=== PATIENT | female | born 1945 | race Caucasian/White ===

== ENCOUNTER 2018-04-02 13:06 | Emergency (ER) | payer OTHER ==
[2018-04-02] MEDS ORDERED: BUPIVACAINE 0.5% PF 10 ML VIAL ONE (14:14)
[2018-04-02] MEDS ORDERED: LIDOCAINE 1% MPF 30 ML VIAL ONE (14:14)
[2018-04-02] MEDS ORDERED: LIDOCAINE 1% W/EPI 1:100,000 MDV 50 ML VIAL ONE (15:05)
--- NOTE | 2018-04-02 15:42 | EDPHYS ---
Physician Documentation [facility] Name: Meena Gandhi Age: 73 yrs Sex: Female : 1945 Arrival Date: 04/02/2018 Time: 13:07 Bed 14 Private MD: ED Physician Vignesh Waterman HPI: 04/02 13:32 This 73 yrs old Female presents to ER via Ambulatory with complaints of cp Rectal Abscess. 13:32 The patient presents to the emergency department with pain in the rectal area, that is cp moderate. Onset: The symptoms/episode began/occurred 2 day(s) ago. 13:32 Associate signs and symptoms: Pertinent negatives: abdominal pain, diarrhea, dysuria, cp fever, lower GI bleeding. 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 - Social history:: Smoking status: Patient/guardian denies using tobacco. - Ebola Screening: : No symptoms or risks identified at this time. ROS: 13:35 Constitutional: Negative for body aches, chills, fever, poor PO intake. cp 13:35 Eyes: Negative for injury, pain, redness, and discharge. cp 13:35 Cardiovascular: Negative for chest pain. 13:35 Respiratory: Negative for cough, shortness of breath, wheezing. 13:35 Abdomen/GI: Positive for rectal pain, Negative for abdominal pain, vomiting, diarrhea, black/tarry stool, rectal bleeding, bowel incontinence. 13:35 : Negative for urinary symptoms. 13:35 All other systems are negative. Exam: 13:42 Constitutional: The patient appears in no acute distress, alert, awake, well developed, cp well nourished, uncomfortable. 13:42 Head/Face: Normocephalic, atraumatic. cp 13:42 Eyes: Periorbital structures: appear normal, Conjunctiva: normal, no exudate, no injection, Sclera: no appreciated abnormality, Lids and lashes: appear normal, bilaterally. 13:42 ENT: External ear(s): are unremarkable, Nose: is normal, Mouth: Lips: moist, Oral mucosa: moist, Posterior pharynx: is normal, airway is patent. 13:42 Chest/axilla: Inspection: normal. 13:42 Cardiovascular: Rate: bradycardic, Rhythm: regular. 13:42 Respiratory: the patient does not display signs of respiratory distress, Respirations: normal, no use of accessory muscles, no retractions, no splinting, no tachypnea. 13:42 Abdomen/GI: Inspection: abdomen appears normal, Palpation: abdomen is soft and non-tender, in all quadrants, rebound tenderness, is not appreciated, voluntary guarding, is not appreciated, involuntary guarding, is not appreciated. 13:42 Back: pain, is absent, ROM is normal. 13:42 : Rectal exam: hemorrhoid(s), external, painful, thrombosed. 13:42 Skin: abscess, not appreciated, cellulitis, is not appreciated, no rash present. Vital Signs: 13:23 BP 157 / 60; Pulse 57; Resp 16; Temp 97.2; Pulse Ox 100% on R/A; Weight 63.05 kg; hb Height 5 ft. 2 in. (157.48 cm); Pain 10/10; 15:33 BP 154 / 62; Pulse 60; Resp 18; Pulse Ox 100% on R/A; hj 13:23 Body Mass Index 25.42 (63.05 kg, 157.48 cm) hb Procedures: 15:29 I \T\ D: Incision and drainage was performed for an abscess of the external hemorrhoid cp Prepped with Betadine, Anesthetized with 3 ccs of 50/50 mixture 1% lidocaine with epi and 0.5% marcaine. Incised with #11 blade. Drained multiple small clots. MDM: 13:32 Patient medically screened. cp 14:15 Differential diagnosis: hemorrhoids, fissure, abscess, pilonidal cyst. cp 15:40 Data reviewed: vital signs, nurses notes, and as a result, I will discharge patient. cp 15:40 Counseling: I had a detailed discussion with the patient and/or guardian regarding: the cp historical points, exam findings, and any diagnostic results supporting the discharge/admit diagnosis, to return to the emergency department if symptoms worsen or persist or if there are any questions or concerns that arise at home. Response to treatment: the patient's symptoms have markedly improved after treatment, and as a result, I will discharge patient. 04/02 14:06 Order name: I\T\D Setup; Complete Time: 15:11 cp Administered Medications: 15:11 Drug: Lidocaine-Epinephrine -1%: (1:100,000) 5 ml Volume: 20 ml; Route: Infiltration; hj 15:11 Drug: Marcaine (0.5 %) 5 ml Volume: 10 ml; Route: Infiltration; hj Disposition: 04/02/18 15:42 Discharged to Home. Impression: Hemorrhoids and perianal venous thrombosis. - Condition is Stable. - Discharge Instructions: Hemorrhoids, How to Take a Sitz Bath. - Prescriptions for Colace 100 mg Oral Tablet - take 1 tablet by ORAL route every 12 hours; 14 tablet. Tylenol- Codeine #3 300-30 mg Oral Tablet - take 2 tablets by ORAL route every 6 hours As needed; 15 tablet. - Medication Reconciliation Form, Thank You Letter, Antibiotic Education, Prescription Opioid Use form. - Follow up: Bo King MD; When: 2 - 3 days; Reason: Recheck today's complaints. - Problem is new. - Symptoms have improved. Addendum: 04/06/2018 16:48 Co-signature as Attending Physician, Vignesh Waterman MD. g s Signatures: Bo Love RN RN hj Page, Corey, PA PA cp Kristina Haas RN RN hb Starr, Gregory, MD MD Corrections: (The following items were deleted from the chart) 04/02 15:58 15:42 04/02/2018 15:42 Discharged to Home. Impression: Hemorrhoids and perianal venous hj thrombosis. Condition is Stable. Forms are Medication Reconciliation Form, Thank You Letter, Antibiotic Education, Prescription Opioid Use. Follow up: Bo King; When: 2 - 3 days; Reason: Recheck today's complaints. Problem is new. Symptoms have improved. cp
--- NOTE | 2018-04-02 15:42 | ER ---
Nurse's Notes [facility] Name: Meena Gandhi Age: 73 yrs Sex: Female : 1945 Arrival Date: 04/02/2018 Time: 13:07 Bed 14 Private MD: Diagnosis: Hemorrhoids and perianal venous thrombosis Presentation: 04/02 13:22 Presenting complaint: Rectal abscess x 2 days. Transition of care: patient was not hb received from another setting of care. Onset of symptoms was March 31, 2018. Risk Assessment: Do you want to hurt yourself or someone else? Patient reports no desire to harm self or others. Care prior to arrival: None. 13:22 Method Of Arrival: Ambulatory hb 13:22 Acuity: MIGUELITO 4 hj 13:33 Initial Sepsis Screen: Does the patient meet any 2 criteria? No. Patient's initial hj sepsis screen is negative. Does the patient have a suspected source of infection? No. Patient's initial sepsis screen is negative. Triage Assessment: 13:33 General: Appears in no apparent distress. uncomfortable, Behavior is calm, cooperative, hj appropriate for age. Pain: Complains of pain in rectum. 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 - Social history:: Smoking status: Patient/guardian denies using tobacco. - Ebola Screening: : No symptoms or risks identified at this time. Screenin:32 Abuse screen: Denies threats or abuse. Denies injuries from another. Nutritional hj screening: No deficits noted. Tuberculosis screening: No symptoms or risk factors identified. Fall Risk None identified. Assessment: 13:30 Reassessment: see triage for assessment;. hj 14:15 Reassessment: Patient and/or family updated on plan of care and expected duration. Pain hj level reassessed. Patient is alert, oriented x 3, equal unlabored respirations, skin warm/dry/pink. I\T\D kit in room;. 15:33 Reassessment: Patient and/or family updated on plan of care and expected duration. Pain hj level reassessed. Patient is alert, oriented x 3, equal unlabored respirations, skin warm/dry/pink. provider in room for I\T\D with medical instrument technician Marianna;. Vital Signs: 13:23 BP 157 / 60; Pulse 57; Resp 16; Temp 97.2; Pulse Ox 100% on R/A; Weight 63.05 kg; hb Height 5 ft. 2 in. (157.48 cm); Pain 10/10; 15:33 BP 154 / 62; Pulse 60; Resp 18; Pulse Ox 100% on R/A; hj 13:23 Body Mass Index 25.42 (63.05 kg, 157.48 cm) hb ED Course: 13:07 Patient arrived in ED. rg4 13:23 Triage completed. hb 13:23 Arm band placed on right wrist. hb 13:25 Steven Garcia PA is PHCP. cp 13:25 Vignesh Waterman MD is Attending Physician. cp 13:30 Served as a machine setter during rectal exam. [facility] 13:32 Bo Love RN is Primary Nurse. hj 13:33 Patient has correct armband on for positive identification. Bed in low position. Call hj light in reach. Side rails up X 1. 14:07 Served as a machine setter during rectal exam. [facility] 15:30 Assist provider with I \T\ D: Set up I\T\D tray. Patient tolerated well. CLEANED WOUND 5 PATIENT TOLERATED IT WELL. Wound care: Patient tolerated well. 15:37 Bo King MD is Referral Physician. 15:58 Patient did not have IV access during this emergency room visit. hj Administered Medications: 15:11 Drug: Lidocaine-Epinephrine -1%: (1:100,000) 5 ml Volume: 20 ml; Route: Infiltration; hj 15:11 Drug: Marcaine (0.5 %) 5 ml Volume: 10 ml; Route: Infiltration; Outcome: 15:42 Discharge ordered by . cp 15:57 Discharged to home ambulatory. 15:57 Condition: stable 15:57 Discharge instructions given to patient, Instructed on discharge instructions, follow up and referral plans. medication usage, wound care, Demonstrated understanding of instructions, follow-up care, medications, wound care, Prescriptions given X 2. 15:58 Patient left the ED. hj Signatures: Bo Love RN RN hj Page, Corey, PA PA cp Baxter, Kristina, JOELLE RN Chasity Luong 4 Natividad King 5 Corrections: (The following items were deleted from the chart) 13:33 13:22 Acuity: MIGUELITO 3 hb hj
[2018-04-02 16:38] VITALS: TEMP 97.2; O2SAT 100
[2018-04-02 16:39] VITALS: BP 154/62
== END 2018-04-02 15:58 | disposition home or self-care (01) ==
LOC: ER 13:06
DX: K64.5 Perianal venous thrombosis (principal); K64.9 Unspecified hemorrhoids; I10 Essential (primary) hypertension; Z88.2 Allergy status to sulfonamides; Z95.1 Presence of aortocoronary bypass graft
CPT/HCPCS: 99284

== ENCOUNTER 2019-01-26 14:35 | Emergency (ER) | payer OTHER ==
--- NOTE | 2019-01-26 15:20 | RAD REPORT ---
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 Sof t tissue swelling is seen affecting the second finger. Small laceration is present in the region. No fracture or foreign body appreciated.
[2019-01-26] MEDS ORDERED: LIDOCAINE 1% MPF 5 ML VIAL ONE (15:21)
--- NOTE | 2019-01-26 15:35 | ER ---
Nurse's Notes [facility] Name: Meena Gandhi Age: 73 yrs Sex: Female : 1945 Arrival Date: 01/26/2019 Time: 14:37 Bed 25 Private MD: Diagnosis: Laceration without foreign body of right index finger without damage to nail Presentation: 01/26 14:48 Presenting complaint: Patient states: I got my right index finger in the car door. la1 Small laceration noted to finger. Transition of care: patient was not received from another setting of care. Onset of symptoms was January 26, 2019. Risk Assessment: Do you want to hurt yourself or someone else? Patient reports no desire to harm self or others. Initial Sepsis Screen: Does the patient meet any 2 criteria? No. Patient's initial sepsis screen is negative. Does the patient have a suspected source of infection? No. Patient's initial sepsis screen is negative. Care prior to arrival: None. 14:48 Method Of Arrival: Ambulatory la1 14:48 Acuity: MIGUELITO 4 la1 Triage Assessment: 15:00 General: Appears in no apparent distress. comfortable, Behavior is calm, cooperative, ca1 appropriate for age. Injury Description: Abrasion sustained to palmar aspect of middle phalanx of right index finger is dirty, was sustained less than 30 minutes ago. Historical: - Allergies: 14:46 Sulfa (Sulfonamide Antibiotics); la1 - PMHx: 14:46 Hypertension; Diabetes - NIDDM; la1 - Immunization history:: Adult Immunizations up to date. - Social history:: Smoking status: Patient/guardian denies using tobacco. - Ebola Screening: : No symptoms or risks identified at this time. Screenin:57 Abuse screen: Denies threats or abuse. Denies injuries from another. Nutritional ca1 screening: No deficits noted. Tuberculosis screening: No symptoms or risk factors identified. Fall Risk None identified. Assessment: 14:57 General: Appears in no apparent distress. comfortable, Behavior is calm, cooperative, ca1 appropriate for age. Pain: Complains of pain in right hand Pain does not radiate. Pain currently is 7 out of 10 on a pain scale. Quality of pain is described as throbbing, Pain began 30 min ago. Neuro: Level of Consciousness is awake, alert, obeys commands, Oriented to person, place, time, situation. Cardiovascular: Heart tones S1 S2 present Capillary refill < 3 seconds Patient's skin is warm and dry. Respiratory: Airway is patent Respiratory effort is even, unlabored, Respiratory pattern is regular, symmetrical, Breath sounds are clear bilaterally. Derm: Skin is healthy with good turgor, Skin is pink, warm \T\ dry. Musculoskeletal: Circulation, motion, and sensation intact. Capillary refill < 3 seconds, Range of motion: intact in all extremities. 15:46 Reassessment: Patient appears in no apparent distress at this time. Patient is alert, ca1 oriented x 3, equal unlabored respirations, skin warm/dry/pink. Vital Signs: 14:47 BP 165 / 89; Pulse 55; Resp 16; Temp 98.4; Pulse Ox 98% on R/A; Weight 60.78 kg; Height la1 5 ft. 1 in. (154.94 cm); 15:46 BP 144 / 79; Pulse 61; Resp 17; Pulse Ox 99% on R/A; ca1 14:47 Body Mass Index 25.32 (60.78 kg, 154.94 cm) la1 ED Course: 14:37 Patient arrived in ED. mr 14:47 Arm band placed on right wrist. la1 14:48 Triage completed. la1 14:49 Kristin Contreras FNP-C is [facility]. kb 14:49 Vignesh Waterman MD is Attending Physician. kb 14:51 Ashley Alford RN is Primary Nurse. ca1 14:57 Patient has correct armband on for positive identification. Bed in low position. Call ca1 light in reach. Side rails up X 1. Pulse ox on. NIBP on. 14:57 Patient did not have IV access during this emergency room visit. ca1 15:03 Wound care: to laceration located on palmar aspect of distal phalanx of right index jp3 finger was cleaned with Hibiclens, debrided using Betadine scrub, irrigated with normal saline, Patient tolerated well. 15:08 Hand Right 3 View XRAY In Process Unspecified. EDMS 15:30 Assist provider with laceration repair on palmar aspect of distal phalanx of right ca1 index finger that was 2.5 cm. or less using sutures. Set up tray. Performed by Kristin IRWIN Dressed with 4X4s, Patient tolerated well. 15:40 Aluminum finger splint applied to palmar aspect of distal phalanx of right index finger jp3 and palmar aspect of middle phalanx of right index finger. Patient maintains SpO2 saturation greater than 95% on room air. Administered Medications: No medications were administered Outcome: 15:34 Discharge ordered by . kahlil 15:49 Discharged to home ambulatory, with family. ca1 15:49 Condition: stable 15:49 Discharge instructions given to patient, Instructed on discharge instructions, follow up and referral plans. wound care, Demonstrated understanding of instructions, follow-up care, wound care. 15:49 Patient left the ED. ca1 Signatures: Dispatcher [employer] EDMS Kristin Contreras, MEATCUTTER-C MEATCUTTER-Sravanthi King Lee, RN RN la1 Alejandro Sawant jp3 Ashley Alford RN RN ca1
--- NOTE | 2019-01-26 15:35 | EDPHYS ---
Physician Documentation [facility] Name: Meena Gandhi Age: 73 yrs Sex: Female : 1945 Arrival Date: 01/26/2019 Time: 14:37 Bed 25 Private MD: ED Physician Vignesh Waterman HPI: 01/26 15:31 This 73 yrs old Female presents to ER via Ambulatory with complaints of kb Finger Injury. 15:33 The patient has a laceration related to: closed finger in door. The laceration(s) kb is(are) located on the palmar aspect of distal phalanx of right index finger. Onset: The symptoms/episode began/occurred 1 hour(s) ago. Associated signs and symptoms: The patient has no apparent associated signs or symptoms. The patient has not experienced similar symptoms in the past. The patient has not recently seen a physician. Historical: - Allergies: 14:46 Sulfa (Sulfonamide Antibiotics); la1 - PMHx: 14:46 Hypertension; Diabetes - NIDDM; la1 - Immunization history:: Adult Immunizations up to date. - Social history:: Smoking status: Patient/guardian denies using tobacco. - Ebola Screening: : No symptoms or risks identified at this time. ROS: 15:29 Constitutional: Negative for fever, chills, and weight loss, Cardiovascular: Negative kb for chest pain, palpitations, and edema, Respiratory: Negative for shortness of breath, cough, wheezing, and pleuritic chest pain, Abdomen/GI: Negative for abdominal pain, nausea, vomiting, diarrhea, and constipation, MS/Extremity: Negative for injury and deformity, Neuro: Negative for headache, weakness, numbness, tingling, and seizure. 15:29 Skin: Positive for laceration(s), of the palmar aspect of distal phalanx of right index finger. Exam: 15:29 Constitutional: This is a well developed, well nourished patient who is awake, alert, kb and in no acute distress. Head/Face: Normocephalic, atraumatic. Chest/axilla: Normal chest wall appearance and motion. Nontender with no deformity. No lesions are appreciated. Cardiovascular: Regular rate and rhythm with a normal S1 and S2. No gallops, murmurs, or rubs. Normal PMI, no JVD. No pulse deficits. Respiratory: Lungs have equal breath sounds bilaterally, clear to auscultation and percussion. No rales, rhonchi or wheezes noted. No increased work of breathing, no retractions or nasal flaring. Abdomen/GI: Soft, non-tender, with normal bowel sounds. No distension or tympany. No guarding or rebound. No evidence of tenderness throughout. MS/ Extremity: Pulses equal, no cyanosis. Neurovascular intact. Full, normal range of motion. Neuro: Awake and alert, GCS 15, oriented to person, place, time, and situation. Cranial nerves II-XII grossly intact. Motor strength 5/5 in all extremities. Sensory grossly intact. Cerebellar exam normal. Normal gait. 15:29 Skin: injury, laceration(s), the wound is approximately 2 cm(s), of the palmar aspect of distal phalanx of right index finger, that can be described as clean, no foreign body, linear, without bleeding. Vital Signs: 14:47 BP 165 / 89; Pulse 55; Resp 16; Temp 98.4; Pulse Ox 98% on R/A; Weight 60.78 kg; Height la1 5 ft. 1 in. (154.94 cm); 15:46 BP 144 / 79; Pulse 61; Resp 17; Pulse Ox 99% on R/A; ca1 14:47 Body Mass Index 25.32 (60.78 kg, 154.94 cm) la1 Laceration: 15:29 Wound Repair of 2cm ( 0.8in ) subcutaneous laceration to palmar aspect of distal kb phalanx of right index finger. Linear shaped.. Distal neuro/vascular/tendon intact. Anesthesia: Wound infiltrated with 1 mls of 1% lidocaine. Wound prep: Extensive cleansing with hibiclenz by organic preparation technician, Wound irrigation with saline by organic preparation technician. Skin closed with 3 4-0 Prolene using interrupted sutures and sterile technique. Dressed with Neosporin. Patient tolerated well. MDM: 14:49 Patient medically screened. kb 15:29 Data reviewed: vital signs, nurses notes. Data interpreted: Pulse oximetry: on room air kb is 98 %. Interpretation: normal. Counseling: I had a detailed discussion with the patient and/or guardian regarding: the historical points, exam findings, and any diagnostic results supporting the discharge/admit diagnosis, radiology results, the need for outpatient follow up, a family practitioner, to return to the emergency department if symptoms worsen or persist or if there are any questions or concerns that arise at home. 01/26 14:52 Order name: Hand Right 3 View XRAY; Complete Time: 15:31 kb 01/26 14:52 Order name: Wound Care: clean wound; Complete Time: 14:56 kb Administered Medications: No medications were administered Disposition: 01/26/19 15:34 Discharged to Home. Impression: Laceration without foreign body of right index finger without damage to nail. - Condition is Stable. - Discharge Instructions: Laceration Care, Adult, [id number]. - Medication Reconciliation Form, Thank You Letter, Antibiotic Education, Prescription Opioid Use form. - Follow up: Emergency Department; When: As needed; Reason: Worsening of condition. Follow up: Private Physician; When: 2 - 3 days; Reason: Recheck today's complaints, Continuance of care, Re-evaluation by your physician. - Notes: Have sutures removed in 10 days Keep clean and dry Signatures: Dispatcher [employer] EDMS Kristin Contreras, FINANCIAL ADMINISTRATIVE ASSISTANT-C FINANCIAL ADMINISTRATIVE ASSISTANT-Ckb Ken Swain RN RN la1 Ashley Alford RN RN ca1 Corrections: (The following items were deleted from the chart) 15:49 15:34 01/26/2019 15:34 Discharged to Home. Impression: Laceration without foreign body ca1 of right index finger without damage to nail. Condition is Stable. Forms are Medication Reconciliation Form, Thank You Letter, Antibiotic Education, Prescription Opioid Use. Follow up: Emergency Department; When: As needed; Reason: Worsening of condition. Follow up: Private Physician; When: 2 - 3 days; Reason: Recheck today's complaints, Continuance of care, Re-evaluation by your physician. kb
[2019-01-26 16:00] VITALS: TEMP 98.4
[2019-01-26 16:01] VITALS: BP 144/79; O2SAT 99
== END 2019-01-26 15:49 | disposition home or self-care (01) ==
LOC: ER 14:35
PROC: 0JQJ0ZZ Repair Right Hand Subcutaneous Tissue and Fascia, Open Approach (ICD-10-PCS; principal; 2019-01-26)
DX: S61.210A Laceration without foreign body of right index finger without damage to nail, initial encounter (principal); I10 Essential (primary) hypertension; E11.9 Type 2 diabetes mellitus without complications; Z88.2 Allergy status to sulfonamides
CPT/HCPCS: 99284

== ENCOUNTER 2020-03-07 17:40 | Emergency (ER) | payer OTHER, SELFPAY ==
[2020-03-07] MEDS ORDERED: NA CHLORIDE 0.9% 1,000 ML ONE (19:48)
[2020-03-07] MEDS ORDERED: FAMOTIDINE 20 MG/2 ML VIAL IV ONE (19:48)
[2020-03-07 19:54] LABS: Basophils % 0.8 % (0-1.3); Hematocrit 32.3 % (36.0-45.0); Lymphocytes % 14.3 % (15.3-44.8); MPV 8.5 fL (7.6-11.3); RBC Red Blood Cell Count 3.66 M/uL (3.86-4.86)
[2020-03-07 20:07] LABS: Albumin 3.1 g/dL (3.4-5.0); Bilirubin Direct 0.1 mg/dL (0-0.2); Bilirubin Total 0.3 mg/dL (0.2-1.0); Magnesium 2.3 mg/dL (1.8-2.4); Potassium 3.3 mmol/L (3.5-5.1); Protein, Total 7.4 g/dL (6.4-8.2)
[2020-03-07 23:09] LABS: Urine Blood 2+ (NEG); Urine Glucose NEGATIVE (NEG); Urine Protein 1+ (NEG); Urine Specific Gravity 1.015 (1.005-1.030)
--- NOTE | 2020-03-08 00:03 | ER ---
Nurse's Notes [facility] Name: Meena Gandhi Age: 75 yrs Sex: Female : 1945 Arrival Date: 03/07/2020 Time: 17:49 Bed 6 Private MD: Diagnosis: Abdominal Pain;Cervical Mass;Urinary tract infection, site not specified Presentation: 03/07 17:54 Chief complaint: Patient states: has lost about 50 pounds in the last 2-3 months, she sv thinks its d/t stress. Burning w/ urination, painful urination x several months. "I also have 5 growths in my thyroid. And I have lost more hair. I'm also anemic. This heat has also been getting to me.". Risk Assessment: Do you want to hurt yourself or someone else? Patient reports no desire to harm self or others. Onset of symptoms was 2019. 17:54 Method Of Arrival: Ambulatory sv 17:54 Acuity: MIGUELITO 3 sv 17:58 Coronavirus screen: Client denies travel out of the [place] in the last 14 days. At this sv time, the client does not indicate any symptoms associated with coronavirus-19. Ebola Screen: No symptoms or risks identified at this time. Initial Sepsis Screen: Does the patient meet any 2 criteria? No. Patient's initial sepsis screen is negative. Does the patient have a suspected source of infection? No. Patient's initial sepsis screen is negative. Historical: - Allergies: 17:57 Sulfa (Sulfonamide Antibiotics); sv - PMHx: 17:57 Diabetes - NIDDM; Hypertension; sv - Immunization history:: Adult Immunizations up to date. - Social history:: Smoking status: Patient denies any tobacco usage or history of. Screenin:45 Abuse screen: Denies threats or abuse. Nutritional screening: No deficits noted. mt2 Tuberculosis screening: No symptoms or risk factors identified. Fall Risk None identified. Assessment: 19:44 Reassessment: Patient and/or family updated on plan of care and expected duration. Pain mt2 level reassessed. Patient is alert, oriented x 3, equal unlabored respirations, skin warm/dry/pink. General: Appears in no apparent distress. Behavior is cooperative. Pain: Denies pain. 19:45 Neuro: No deficits noted. Cardiovascular: No deficits noted. Respiratory: No deficits mt2 noted. GI: Reports lower abdominal pain, nausea. : No deficits noted. EENT: No deficits noted. Derm: No deficits noted. Musculoskeletal: No deficits noted. 20:30 Reassessment: Patient and/or family updated on plan of care and expected duration. Pain mt2 level reassessed. Patient is alert, oriented x 3, equal unlabored respirations, skin warm/dry/pink. General: Appears uncomfortable, Behavior is agitated. Pain: Denies pain. 22:00 Reassessment: Patient and/or family updated on plan of care and expected duration. Pain mt2 level reassessed. Patient is alert, oriented x 3, equal unlabored respirations, skin warm/dry/pink. General: Appears distressed, uncomfortable, Behavior is anxious. Pain: Complains of pain in chest Pain currently is 10 out of 10 on a pain scale. Cardiovascular: Reports chest pain. 22:00 Reassessment: PATIENT RETURN FROM CT AND C/O CP. MD NOTIFIED. mt2 23:08 Reassessment: Patient and/or family updated on plan of care and expected duration. Pain mt2 level reassessed. Patient is alert, oriented x 3, equal unlabored respirations, skin warm/dry/pink. Patient denies pain at this time. General: Appears comfortable, Behavior is cooperative. Pain: Denies pain. Vital Signs: 17:58 BP 120 / 61; Pulse 89; Resp 16; Temp 98.5(O); Pulse Ox 98% ; Weight 51.26 kg; Height 5 sv ft. 2 in. (157.48 cm); 20:00 BP 143 / 79; Pulse 77; Resp 16; Pulse Ox 95% ; Pain 5/10; mt2 21:00 BP 152 / 79; Pulse 81; Resp 16; Pulse Ox 95% ; Pain 0/10; mt2 22:00 BP 227 / 110; Pulse 80; Resp 22; Pulse Ox 96% ; Pain 10/10; mt2 23:09 BP 170 / 81; Pulse 71; Resp 16; Pulse Ox 96% ; Pain 0/10; mt2 23:20 BP 133 / 56; Pulse 73; Resp 16; Pulse Ox 96% ; Pain 0/10; mt2 17:58 Body Mass Index 20.67 (51.26 kg, 157.48 cm) sv ED Course: 17:49 Patient arrived in ED. mr 17:54 Arm band placed on. 17:57 Triage completed. 18:17 Luz Maria Jeffers, RN is Primary Nurse. ll1 19:04 Jag Dorsey MD is Attending Physician. [facility] 19:35 Inserted saline lock: 22 gauge in right forearm, using aseptic technique. Blood ds4 collected. 19:45 Patient has correct armband on for positive identification. Bed in low position. Call mt2 light in reach. Side rails up X 1. 22:05 CT Abd/Pelvis - IV Contrast Only In Process Unspecified. EDMS 03/08 00:02 Michelle Frazier MD is Referral Physician. [facility] Administered Medications: 03/07 19:44 Drug: NS 0.9% 1000 ml Route: IV; Rate: 1000 ml; Site: right forearm; mt2 20:30 Follow up: Response: No adverse reaction; IV Status: Completed infusion mt2 19:44 Drug: Pepcid 20 mg Route: IVP; Site: right forearm; mt2 20:30 Follow up: Response: No adverse reaction; Pain is decreased mt2 Outcome: 03/08 00:03 Discharge ordered by . [facility] 00:45 Patient left the ED. mt2 Signatures: Dispatcher [employer] EDKY Juanita Zhang RN RN Sravanthi Solis Donovan ds4 Luz Maria Jeffers, JOELLE RN ll1 Jag Dorsey MD MD 7 Cathryn García RN RN mt2 Corrections: (The following items were deleted from the chart) 03/07 18:00 17:54 Chief complaint: Patient states: has lost about 50 pounds in the last 2-3 months, sv she thinks its d/t stress. Burning w/ urination, painful urination x several months. "I also have 5 growths in my thyroid. And I have lost more hair. I'm also anemic." 18:01 17:58 Pulse 89bpm; Resp 16bpm; Pulse Ox 98%; Temp 98.5F Oral; 51.26 kg; Height 5 ft. 2 sv in.; BMI: 20.6; sv 23:08 23:05 Reassessment: Patient and/or family updated on plan of care and expected mt2 duration. Pain level reassessed. Patient is alert, oriented x 3, equal unlabored respirations, skin warm/dry/pink. mt2 23: 23:05 General: Appears distressed, uncomfortable, Behavior is anxious, mt2 mt2 23: 23:05 Pain: Complains of pain in chest Pain currently is 10 out of 10 on a pain scale. mt2 mt2 23:08 23:05 Cardiovascular: Reports chest pain, mt2 mt2
--- NOTE | 2020-03-08 00:03 | EDPHYS ---
Physician Documentation [facility] Name: Meena Gandhi Age: 75 yrs Sex: Female : 1945 Arrival Date: 03/07/2020 Time: 17:49 Bed 6 Private MD: ED Physician Jag Dorsey HPI: 03/07 19:39 This 75 yrs old Female presents to ER via Ambulatory with complaints of mh7 Dehydration. 19:39 Dehydration over the past 2 weeks. Onset: The symptoms/episode began/occurred 2 week(s) mh7 ago. Severity of symptoms: At their worst the symptoms were moderate 5 day(s) ago, in the emergency department the symptoms have improved moderately. The patient has been recently seen by a physician: the patient's primary care provider. Patient states that she has had generalized fatigue and weight loss over the past 3 months. She reports feeling dehydrated over the past 2 weeks due to decreased appetite. She has had some intermittent upper abdominal pain over the past week. She has had intermittent dysuria for the past 2-3 weeks. She denies any headache, chest pain, fever, nausea, vomiting, diarrhea, dizziness, cough, SOB, numbness/tingling, or focal weakness.. Historical: - Allergies: 17:57 Sulfa (Sulfonamide Antibiotics); sv - PMHx: 17:57 Diabetes - NIDDM; Hypertension; sv - Immunization history:: Adult Immunizations up to date. - Social history:: Smoking status: Patient denies any tobacco usage or history of. ROS: 19:39 Eyes: Negative for injury, pain, redness, and discharge, ENT: Negative for injury, mh7 pain, and discharge, Neck: Negative for injury, pain, and swelling, Cardiovascular: Negative for chest pain, palpitations, and edema, Respiratory: Negative for shortness of breath, cough, wheezing, and pleuritic chest pain, Back: Negative for injury and pain, MS/Extremity: Negative for injury and deformity, Skin: Negative for injury, rash, and discoloration, Psych: Negative for depression, anxiety, suicide ideation, homicidal ideation, and hallucinations, Allergy/Immunology: Negative for hives, rash, and allergies, Hematologic/Lymphatic: Negative for swollen nodes, abnormal bleeding, and unusual bruising. Exam: 19:39 Head/Face: Normocephalic, atraumatic. Eyes: Pupils equal round and reactive to light, mh7 extra-ocular motions intact. Lids and lashes normal. Conjunctiva and sclera are non-icteric and not injected. Cornea within normal limits. Periorbital areas with no swelling, redness, or edema. ENT: Nares patent. No nasal discharge, no septal abnormalities noted. Tympanic membranes are normal and external auditory canals are clear. Oropharynx with no redness, swelling, or masses, exudates, or evidence of obstruction, uvula midline. Mucous membranes moist. Neck: Trachea midline, no thyromegaly or masses palpated, and no cervical lymphadenopathy. Supple, full range of motion without nuchal rigidity, or vertebral point tenderness. No Meningismus. Chest/axilla: Normal chest wall appearance and motion. Nontender with no deformity. No lesions are appreciated. Cardiovascular: Regular rate and rhythm with a normal S1 and S2. No gallops, murmurs, or rubs. Normal PMI, no JVD. No pulse deficits. Respiratory: Lungs have equal breath sounds bilaterally, clear to auscultation and percussion. No rales, rhonchi or wheezes noted. No increased work of breathing, no retractions or nasal flaring. 19:39 Back: No spinal tenderness. No costovertebral tenderness. Full range of motion. Skin: Warm, dry with normal turgor. Normal color with no rashes, no lesions, and no evidence of cellulitis. MS/ Extremity: Pulses equal, no cyanosis. Neurovascular intact. Full, normal range of motion. Neuro: Awake and alert, GCS 15, oriented to person, place, time, and situation. Cranial nerves II-XII grossly intact. Motor strength 5/5 in all extremities. Sensory grossly intact. Cerebellar exam normal. Normal gait. Psych: Awake, alert, with orientation to person, place and time. Behavior, mood, and affect are within normal limits. 19:39 Constitutional: The patient appears in no acute distress, alert, awake, comfortable. 19:39 Abdomen/GI: Inspection: abdomen appears normal, Bowel sounds: normal, in all quadrants, Palpation: mild abdominal tenderness, in the epigastric area, Rectal exam: the exam is deferred, because of patient request, Indicators: McBurney's point is not tender, Seaman's sign is negative, Rovsing's sign is negative, Obturator sign is negative, Psoas sign is negative, Liver: no appreciated palpable abnormalities, Hernia: not appreciated. Vital Signs: 17:58 BP 120 / 61; Pulse 89; Resp 16; Temp 98.5(O); Pulse Ox 98% ; Weight 51.26 kg; Height 5 sv ft. 2 in. (157.48 cm); 20:00 BP 143 / 79; Pulse 77; Resp 16; Pulse Ox 95% ; Pain 5/10; mt2 21:00 BP 152 / 79; Pulse 81; Resp 16; Pulse Ox 95% ; Pain 0/10; mt2 22:00 BP 227 / 110; Pulse 80; Resp 22; Pulse Ox 96% ; Pain 10/10; mt2 23:09 BP 170 / 81; Pulse 71; Resp 16; Pulse Ox 96% ; Pain 0/10; mt2 23:20 BP 133 / 56; Pulse 73; Resp 16; Pulse Ox 96% ; Pain 0/10; mt2 17:58 Body Mass Index 20.67 (51.26 kg, 157.48 cm) sv MDM: 19:18 Patient medically screened. [facility] 23:58 Differential Diagnosis Dehydration, Malaise, Malignancy. Data reviewed: vital signs, [facility] nurses notes, lab test result(s), cardiac enzymes, CBC, electrolytes, urinalysis, EKG, radiologic studies, CT scan. Data interpreted: Pulse oximetry: on room air is 96 %. Interpretation: normal. Counseling: I had a detailed discussion with the patient and/or guardian regarding: the historical points, exam findings, and any diagnostic results supporting the discharge/admit diagnosis, lab results, radiology results, the need for outpatient follow up, an OB/Gyne specialist, to return to the emergency department if symptoms worsen or persist or if there are any questions or concerns that arise at home. Response to treatment: the patient's symptoms have resolved after treatment, the patient's blood pressure is in an acceptable range, mental status has returned to baseline, the patient no longer shows bradycardia, the patient is not short of breath, the patient is not tachycardic, the patient's pain is gone, the patient's temperature has normalized, patient is well hydrated. 03/08 06:38 Response to treatment: the patient is now symptom free. [facility] 03/07 19:19 Order name: Basic Metabolic Panel; Complete Time: 20:18 [facility] 03/07 19:19 Order name: CBC with Diff; Complete Time: 20:18 [facility] 03/07 19:19 Order name: Hepatic Function; Complete Time: 20:18 [facility] 03/07 19:19 Order name: Lipase; Complete Time: 20:18 [facility] 03/07 19:19 Order name: Magnesium; Complete Time: 20:18 [facility] 03/07 22:15 Order name: Troponin (emerg Dept Use Only); Complete Time: 23:01 [facility] 03/07 19:19 Order name: IV Saline Lock; Complete Time: 19:36 [facility] 03/07 19:19 Order name: Labs collected and sent; Complete Time: 19:36 [facility] 03/07 19:19 Order name: Urine Dipstick-Ancillary (obtain specimen); Complete Time: 22:57 [facility] 03/07 19:19 Order name: EKG - Nurse/Tech; Complete Time: 19:36 [facility] 03/07 20:19 Order name: CT Abd/Pelvis - IV Contrast Only [facility] 03/07 22:58 Order name: Urine Dipstick--Ancillary (enter results); Complete Time: 00:05 ar5 Administered Medications: 03/07 19:44 Drug: NS 0.9% 1000 ml Route: IV; Rate: 1000 ml; Site: right forearm; hi2 20:30 Follow up: Response: No adverse reaction; IV Status: Completed infusion mt2 19:44 Drug: Pepcid 20 mg Route: IVP; Site: right forearm; hi2 20:30 Follow up: Response: No adverse reaction; Pain is decreased hi2 Disposition: 03/08 06:38 Co-signature as Attending Physician, Jag Dorsey MD. [facility] Disposition: 03/08/20 00:03 Discharged to Home. Impression: Abdominal Pain, Cervical Mass, Urinary tract infection, site not specified. - Condition is Stable. - Discharge Instructions: Dysuria, Urinary Tract Infection, Adult, [id number], Abdominal Pain, Adult, [id number]. - Prescriptions for Pyridium 200 mg Oral Tablet - take 1 tablet by ORAL route every 8 hours for 2 days; 6 tablet. Keflex 500 mg Oral Capsule - take 1 capsule by ORAL route every 12 hours for 7 days; 14 capsule. - Medication Reconciliation Form, Thank You Letter, Antibiotic Education, Prescription Opioid Use form. - Follow up: Private Physician; When: 1 - 2 days; Reason: Worsening of condition, Recheck today's complaints, Continuance of care, Re-evaluation by your physician. Follow up: Michelle Frazier MD; When: 1 - 2 days; Reason: Worsening of condition, Continuance of care. - Problem is an ongoing problem. - Symptoms have improved. Signatures: Dispatcher [employer] EDJuanita Lamar RN RN Jag Dorsey MD MD 7 Cathryn García RN RN mt2 Corrections: (The following items were deleted from the chart) 00:06 00:03 03/08/2020 00:03 Discharged to Home. Impression: Abdominal Pain; Cervical Mass. mh7 Condition is Stable. Forms are Medication Reconciliation Form, Thank You Letter, Antibiotic Education, Prescription Opioid Use. Follow up: Private Physician; When: 1 - 2 days; Reason: Worsening of condition, Recheck today's complaints, Continuance of care, Re-evaluation by your physician. Follow up: Michelle Frazier; When: 1 - 2 days; Reason: Worsening of condition, Continuance of care. Problem is an ongoing problem. Symptoms have improved. 7 00:45 00:06 03/08/2020 00:03 Discharged to Home. Impression: Abdominal Pain; Cervical Mass; mt2 Urinary tract infection, site not specified. Condition is Stable. Discharge Instructions: Abdominal Pain, Adult, [id number], Dysuria, Urinary Tract Infection, Adult, [id number]. Prescriptions for Pyridium 200 mg Oral Tablet - take 1 tablet by ORAL route every 8 hours for 2 days; 6 tablet, Keflex 500 mg Oral Capsule - take 1 capsule by ORAL route every 12 hours for 7 days; 14 capsule. and Forms are Medication Reconciliation Form, Thank You Letter, Antibiotic Education, Prescription Opioid Use. Follow up: Private Physician; When: 1 - 2 days; Reason: Worsening of condition, Recheck today's complaints, Continuance of care, Re-evaluation by your physician. Follow up: Michelle Frazier; When: 1 - 2 days; Reason: Worsening of condition, Continuance of care. Problem is an ongoing problem. Symptoms have improved. 7
--- NOTE | 2020-03-08 10:38 | RAD REPORT ---
EXAM DESCRIPTION: CT - Abdomen Pelvis W Contrast - 03/07/2020 11:35 pm CLINICAL HISTORY: ABD PAIN TECHNIQUE: Contiguous axial images obtained through the abdomen and pelvis following the uneventful administration of IV contrast. Coronal and sagittal reformatted images were provided. This exam was performed according to our departmental dose-optimization program, which includes autom ated exposure control, adjustment of the mA and/or kV according to patient size and/or use of iterati ve reconstruction technique. COMPARISON: 02/21/2017 FINDINGS: Lung bases: No focal consolidation. The heart is enlarged. Coronary artery calcification. Liver: Unremarkable Gallbladder and biliary system: Unremarkable Pancreas: Unremarkable Spleen: Unremarkable Adrenals: Stable high density 2.5 cm right adrenal nodule. Kidneys: Normal renal cortical enhancement. Multiple bilateral cysts, the largest at the upper pole o n the right measuring (previously 1.5 cm). Large staghorn calculus again demonstrated on the right. S mall left renal calculi. Minimal urothelial thickening on the right. No hydronephrosis. Bowel: No obstruction. No appreciable mucosal thickening. Appendix: Normal caliber appendix. No findings to suggest acute appendicitis. Urinary bladder: Distended. Reproductive: Large irregular heterogeneous mass at the level of the cervix measuring 5.5 x 6 x 6.2 c m. Loss of the fat plane between this mass and the posterior aspect of the urinary bladder. Lymph nodes: No pathologically enlarged lymph nodes. Peritoneum: No focal fluid collection. No free air. Vessels: Moderate to severe atherosclerotic disease. No abdominal aortic aneurysm. Abdominal wall: Tiny fat-containing umbilical hernia. Bones: Multilevel spondylosis. No acute fracture. IMPRESSION: 1. Large irregular heterogeneous mass at the level of the cervix concerning for malign darrick. There is loss of the fat plane between this mass and the posterior aspect of the urinary bladde r. 2. Mild urothelial thickening on the right. Please correlate clinically for urinary tract infection . 3. Stable 2.5 cm right adrenal mass. Probably benign. No further follow-up imaging is recommended. Reference: JACR 2017 Feb;14(8):1038-44, JCAT 2016 Sep-Oct;40(2):194-200 4. Other findings as above. Electronically signed by: Carol Pulido MD 03/07/2020 10:44 PM CDT Due to temporary technical issues with the PACS/Fluency reporting system, reports are being signed by the in house radiologist without review as a courtesy to ensure prompt reporting. The interpreting r adiologist is fully responsible for the content of the report.
[2020-03-11 00:47] VITALS: TEMP 98.5
[2020-03-11 00:53] VITALS: O2SAT 96
[2020-03-11 00:55] VITALS: BP 133/56
== END 2020-03-08 00:45 | disposition home or self-care (01) ==
LOC: ER 17:40
DX: N39.0 Urinary tract infection, site not specified (principal); N88.8 Other specified noninflammatory disorders of cervix uteri; I10 Essential (primary) hypertension; Z88.2 Allergy status to sulfonamides
CPT/HCPCS: 93005 ×2; 85025; 80048; 36415; 83735; 80076; 81003; 84484; 83690; 74177; Q9967; J7030; 96361; 96374; 99284

== ENCOUNTER 2020-04-05 10:39 | Emergency (ER) | payer OTHER ==
[2020-04-05 11:40] LABS: Basophils % 0.3 % (0-1.3)
[2020-04-05] MEDS ORDERED: NA CHLORIDE 0.9% 1,000 ML ONE (11:40)
[2020-04-05 11:46] LABS: Absolute Lymphocytes (CBC) 1.1 K/uL (0.7-4.9); Hematocrit 35.1 % (36.0-45.0); Lymphocytes % 4.9 % (15.3-44.8); MPV 8.8 fL (7.6-11.3); RBC Red Blood Cell Count 3.98 M/uL (3.86-4.86)
[2020-04-05 12:00] LABS: ALT/SGPT 17 U/L (12-78); AST/SGOT 28 U/L (15-37); Albumin 3.2 g/dL (3.4-5.0); Alkaline Phosphatase 58 U/L (45-117); BUN Blood Urea Nitrogen 10 mg/dL (7-18); Bicarbonate 28 mmol/L (21-32); Bilirubin Direct 0.3 mg/dL (0-0.2); Bilirubin Total 1.1 mg/dL (0.2-1.0); Glucose Level 141 mg/dL (74-106); Lipase 53 U/L (73-393); Magnesium 2.1 mg/dL (1.8-2.4); NT PRO-BNP 2044 pg/mL (<125); Potassium 3.8 mmol/L (3.5-5.1); Protein, Total 8.3 g/dL (6.4-8.2); Sodium Level 136 mmol/L (136-145); Troponin (Emerg Dept Use Only) < 0.02 ng/mL (0.0-0.045)
--- NOTE | 2020-04-05 12:08 | RAD REPORT ---
EXAM DESCRIPTION: RAD - Chest Single View - 04/05/2020 11:52 am CLINICAL HISTORY: COUGH COMPARISON: February 2017 TECHNIQUE: AP portable chest image was obtained 04/05/2020 11:52 am . FINDINGS: Lungs are clear of an acute process. Interstitial pattern matches comparison. Sternotomy w ires are in place. Heart and vasculature are normal. No measurable pleural effusion and no pneumothor ax. No acute bony abnormality seen. No acute aortic findings suspected. IMPRESSION: No acute cardiopulmonary process. No significant change from comparison.
[2020-04-05 12:16] LABS: Blood Morphology Comment NOT SEEN (NOT SEEN); Platelet Estimate ADEQ
[2020-04-05] MEDS ORDERED: CEFTRIAXONE/SWI 1gm 1 GM/10 ML SYR ONE (12:35)
--- NOTE | 2020-04-05 12:42 | RAD REPORT ---
EXAM DESCRIPTION: CT - Abdomen Pelvis Wo Contrast - 04/05/2020 12:17 pm CLINICAL HISTORY: ABD PAIN COMPARISON: Abdomen Pelvis W Contrast dated 03/07/2020 TECHNIQUE: Axial [address] imaging of the abdomen and pelvis was performed without IV contrast. Patient declined use of oral and IV contrast. All CT scans are performed using dose optimization technique as appropriate and may include automated exposure control or mA/KV adjustment according to patient size. FINDINGS: No suspicious findings in the lung bases. The liver, spleen and pancreas show no suspicious findings on non-contrast imaging. Gallbladder and b iliary tree are also without suspicious finding. Large densely calcified staghorn calculus fills the pelvis and calices of the right collecting system . No left-sided staghorn calculus. Small punctate calyx calculi noted on the left. No hydronephrosis. Small right adrenal mass matches comparison. Isodense renal masses and pyelonephritis cannot be excl uded in the absence of IV contrast. Partially filled urinary bladder shows no suspicious findings. Again noted is the large masslike thickening of the cervix. This has not clearly changed over the danyell rt interval since March 07 imaging. Malignancy the cervix remains a primary consideration. Tortuous vessels are seen adjacent to the cervix. No definitive pelvic lymphadenopathy seen. No ovarian abnorm ality identified. No dilated bowel loops or bowel wall thickening. No free air, free fluid or inflammatory stranding. No hernia, omental thickening or bulky lymphadenopathy peer Disc and bony degenerative changes are present. IMPRESSION: Irregular masslike thickening of the cervix again noted. This has the appearance of prim janis cervix malignancy but is not clearly different from the March 07 study. No obstruction, free air or surgically emergent finding. Additional nonacute findings detailed in the body of the report.
--- NOTE | 2020-04-05 13:02 | RAD REPORT ---
[facility]47 pm CLINICAL HISTORY: Right leg pain and swelling. COMPARISON: None. FINDINGS: Echogenic material consistent with acute thrombus is present within the right common femor al, right greater saphenous, right superficial femoral, right popliteal and tibial veins. There is li ttle flow . IMPRESSION: Occlusive thrombus throughout the right lower extremity
--- NOTE | 2020-04-05 13:08 | ER ---
Nurse's Notes [facility] Name: Meena Gandhi Age: 75 yrs Sex: Female : 1945 Arrival Date: 04/05/2020 Time: 10:48 Bed 19 Private MD: Diagnosis: Acute embolism and thrombosis of deep veins of lower extremity-right;Elevated white blood cell count;Malignant neoplasm of cervix uteri, unspecified-advanced;Urinary tract infection, site not specified;Type 2 diabetes mellitus;Anorexia Presentation: 04/05 10:48 Chief complaint: EMS states: Generalized body weakness x 2-3 months, loss of appetite ca1 2-3 months. LUQ pain. Denies N/V/Diarrhea. BP 125/78, HR 94, temp 97.1F, 100% sats on RA. Chief complaint: Patient states: I woke up this morning with SBP at 60s, felt very dizzy and very weak and I had SOB when I walked. I have not have an appetite for 2-3 months, I lost weight from 140 to 107lbs in just 2-3 months. I also have abdominal pain from ulcer. I also have back pain on the R side, R leg pain up to the R groin area that it hurts to walk. It also appears like my R leg is bigger than the L. Coronavirus screen: Client denies travel out of the [place] in the last 14 days. At this time, the client does not indicate any symptoms associated with coronavirus-19. Ebola Screen: Patient negative for fever greater than or equal to 101.5 degrees Fahrenheit, and additional compatible Ebola Virus Disease symptoms Patient denies exposure to infectious person. Patient denies travel to an Ebola-affected area in the 21 days before illness onset. No symptoms or risks identified at this time. Initial Sepsis Screen: Does the patient meet any 2 criteria? No. Patient's initial sepsis screen is negative. Does the patient have a suspected source of infection? No. Patient's initial sepsis screen is negative. Risk Assessment: Do you want to hurt yourself or someone else? Patient reports no desire to harm self or others. Onset of symptoms was April 05, 2020. 10:48 Method Of Arrival: EMS: [facility] ca1 10:48 Acuity: MIGUELITO 3 ca1 Triage Assessment: 10:54 General: Appears in no apparent distress. comfortable, Behavior is calm, cooperative, ca1 appropriate for age. Pain: Complains of pain in back, abdomen and right leg Pain currently is 3 out of 10 on a pain scale. EENT: No signs and/or symptoms were reported regarding the EENT system. Neuro: Level of Consciousness is awake, alert, obeys commands, Oriented to person, place, time, situation. Cardiovascular: Heart tones S1 S2 present Capillary refill < 3 seconds Patient's skin is warm and dry. Rhythm is sinus rhythm. Respiratory: Airway is patent Respiratory effort is even, unlabored, Respiratory pattern is regular, symmetrical, Breath sounds are clear bilaterally. GI: Abdomen is flat, non-distended, Bowel sounds present X 4 quads. Abd is soft X 4 quads Abdomen is tender to palpation X 4 quads. Reports anorexia. : No signs and/or symptoms were reported regarding the genitourinary system. Derm: Skin is intact, is healthy with good turgor, Skin is pink, warm \\T\\ dry. Musculoskeletal: Circulation, motion, and sensation intact. Capillary refill < 3 seconds. Historical: - Allergies: 10:54 Sulfa (Sulfonamide Antibiotics); ca1 - Home Meds: 10:54 Metoprolol Tartrate Oral [Active]; Aspirin Oral [Active]; ca1 - PMHx: 10:54 Diabetes - NIDDM; Hypertension; Myocardial infarction; ca1 - PSHx: 10:54 CABG; ca1 - Immunization history:: Adult Immunizations up to date. - Social history:: Smoking status: Patient denies any tobacco usage or history of. - Family history:: not pertinent. Screenin:56 Abuse screen: Denies threats or abuse. Denies injuries from another. Nutritional ca1 screening: No deficits noted. Tuberculosis screening: No symptoms or risk factors identified. Fall Risk IV access (20 points). Gait- Weak (10 pts.). Total Hubbard Fall Scale indicates Low Risk Score (25-44 pts). Fall prevention measures have been instituted. Side Rails Up X 2 Family Present and informed to notify staff if they need to leave bedside As available Patient and Family Educated on Fall Prevention Program and strategies. Assessment: 10:56 Reassessment: See triage notes. ca1 11:34 Reassessment: Pt states, :"I had chest pains with IV contrast, but denies true allergy ca1 reactions" Notified provider, antihistamines ordered. Notified patient, pt states, "I don't want it, I don't want to go through that again". Notified provider. VO cancel antihistamines and change CT order to without contrast. 11:38 Reassessment: PT TO RADIOLOGY. bp 12:55 Reassessment: Patient appears in no apparent distress at this time. Patient and/or ca1 family updated on plan of care and expected duration. Pain level reassessed. Patient is alert, oriented x 3, equal unlabored respirations, skin warm/dry/pink. 13:50 Reassessment: Patient appears in no apparent distress at this time. Patient and/or ca1 family updated on plan of care and expected duration. Pain level reassessed. Patient is alert, oriented x 3, equal unlabored respirations, skin warm/dry/pink. 14:22 Reassessment: PT SEEN BY SOCIAL WORK, TRANSFER IN PROCESS. bp 14:42 Reassessment: Patient appears in no apparent distress at this time. Patient and/or ca1 family updated on plan of care and expected duration. Pain level reassessed. Patient is alert, oriented x 3, equal unlabored respirations, skin warm/dry/pink. 14:43 Reassessment: Called report to JOELLE Watters at [facility]. ca1 15:43 Reassessment: Patient appears in no apparent distress at this time. Patient and/or ca1 family updated on plan of care and expected duration. Pain level reassessed. Patient is alert, oriented x 3, equal unlabored respirations, skin warm/dry/pink. Vital Signs: 10:48 BP 163 / 79; Pulse 94; Resp 19 S; Temp 98.4(O); Pulse Ox 99% on R/A; Weight 48.53 kg ca1 (R); Height 5 ft. 2 in. (157.48 cm) (R); Pain 3/10; 11:15 BP 116 / 89; Pulse 95; Resp 18 S; Pulse Ox 100% on R/A; ca1 12:55 BP 137 / 65; Pulse 73; Resp 20 S; Pulse Ox 100% on R/A; ca1 13:30 BP 114 / 84; Pulse 86; Resp 19 S; Pulse Ox 99% on R/A; ca1 14:23 BP 145 / 73; Pulse 81; Resp 22; Pulse Ox 100% ; bp 15:43 BP 120 / 72; Pulse 81; Resp 19 S; Pulse Ox 100% on R/A; ca1 10:48 Body Mass Index 19.57 (48.53 kg, 157.48 cm) ca1 ED Course: 10:48 Patient arrived in ED. ca1 10:53 Triage completed. ca1 10:54 Arm band placed on right wrist. ca1 10:55 Steven Arceo MD is Attending Physician. pritesh 10:56 Patient has correct armband on for positive identification. Placed in gown. Bed in low ca1 position. Call light in reach. Side rails up X2. phototypesetting equipment monitor on. Pulse ox on. NIBP on. Warm blanket given. 10:58 Ashley Alford, JOELLE is Primary Nurse. ca1 11:31 Initial lab(s) drawn, by nv, sent to lab. Inserted saline lock: 20 gauge in left dh3 forearm, using aseptic technique. Blood collected. 11:33 First set of blood cultures drawn by nv. dh3 11:40 Second set of blood cultures drawn by nv. dh3 11:49 Notified ED physician of a critical lab result(s). WBC 21.5. ca1 12:00 Straight cath inserted, using sterile technique, 18 Fr. Specimen obtained. Returned ca1 cloudy urine. Patient tolerated well. 12:16 CT completed. Patient tolerated procedure well. Patient moved to CT via stretcher. sw Patient moved back from CT. 12:41 US Extremity Venous Unilateral Ltd In Process Unspecified. EDMS 12:42 CT Abd/Pelvis - Without Contrast In Process Unspecified. EDMS 14:09 initiated transfer to [facility], accepted intransfer by dr Mcintyre, admin bd approval given by Lyn Hernández. 14:44 No provider procedures requiring assistance completed. Patient transferred, IV remains ca1 in place. Administered Medications: 11:33 Not Given (Patient Refused): Benadryl 25 mg IVP once ca1 11:33 Not Given (Patient Refused): Pepcid 20 mg IVP once ca1 11:33 Not Given (Patient Refused): SOLU-Medrol 2 mg/kg IVP once ca1 11:37 Drug: NS 0.9% 500 ml Route: IV; Rate: bolus; Site: left forearm; ca1 13:55 Follow up: Response: No adverse reaction; IV Status: Completed infusion; IV Intake: ca1 500ml 11:50 Drug: NS 0.9% 1000 ml Route: IV; Rate: 125 ml/hr; Site: left antecubital; bp 14:45 Follow up: Response: No adverse reaction; IV Status: Infusion continued upon transfer ca1 12:55 Drug: Rocephin 1 grams Route: IV; Rate: per protocol; Site: right forearm; ca1 13:27 Follow up: Response: No adverse reaction; IV Status: Completed infusion ca1 13:00 Drug: Pepcid 20 mg Route: IVP; Site: left forearm; ca1 14:32 Follow up: Response: No adverse reaction ca1 13:03 Drug: Flagyl 500 mg Volume: 100 ml; Route: IVPB; Rate: 200 ml/hr; Infused Over: 30 ca1 mins; Site: left forearm; 14:31 Follow up: Response: No adverse reaction; IV Status: Completed infusion; IV Intake: ca1 100ml 13:26 Drug: Lovenox 1 mg/kg Route: Sub-Q; Site: right lower abdomen; ca1 14:32 Follow up: Response: No adverse reaction ca1 Intake: 13:55 IV: 500ml; Total: 500ml. ca1 14:31 IV: 100ml; Total: 600ml. ca1 Outcome: 13:08 ER care complete, transfer ordered by MD. jonas 15:43 Transferred by ground EMS to [facility], Transfer form ca1 completed. X-rays sent w/ patient. 15:43 Condition: stable 15:43 Instructed on the need for transfer. 15:54 Patient left the ED. ca1 Signatures: Dispatcher [employer] EDMS Demi Britt Corey, MD MD cha Warren, Shannon sw Herrera, Deanna [facility] [place], RN RN bp Ashley Alford RN RN ca1 Corrections: (The following items were deleted from the chart) 10:56 10:54 GI: Abdomen is flat, non-distended, Bowel sounds present X 4 quads. Abd is soft X ca1 4 quads Abdomen is tender to palpation X 4 quads. ca1 13:27 13:00 Flagyl 500 mg 100 ml IVPB at 200 ml/hr in left forearm over 30 mins 100 ml ca1 ca1 14:44 13:30 BP 114 / 84; Pulse 86bpm; Resp 16bpm; Spontaneous; Pulse Ox 99% RA; ca1 ca1
--- NOTE | 2020-04-05 13:09 | EDPHYS ---
Physician Documentation [facility] Name: Meena Gandhi Age: 75 yrs Sex: Female : 1945 Arrival Date: 04/05/2020 Time: 10:48 Bed 19 Private MD: ED Physician Steven Arceo HPI: 04/05 11:28 This 75 yrs old Female presents to ER via EMS with complaints of General pritesh Weakness. 11:28 The patient presents with decreased range of motion, pain, swelling, tenderness. The pritesh complaints affect the lateral aspect of right thigh, lateral aspect of right calf, right hamstring, right calf, medial aspect of right thigh, medial aspect of right calf, right quadriceps and right armenta. Context: The problem was sustained at an unknown site. Onset: The symptoms/episode began/occurred 3 day(s) ago. Modifying factors: The symptoms are alleviated by nothing. the symptoms are aggravated by movement. Associated signs and symptoms: Pertinent positives: calf tenderness, swelling. The patient presents with abdominal pain in the upper abdomen, in the lower abdomen. Onset: The symptoms/episode began/occurred 3 day(s) ago. weakness , cant eat, abdominal pain, significant weight loss. Historical: - Allergies: 10:54 Sulfa (Sulfonamide Antibiotics); ca1 - Home Meds: 10:54 Metoprolol Tartrate Oral [Active]; Aspirin Oral [Active]; ca1 - PMHx: 10:54 Diabetes - NIDDM; Hypertension; Myocardial infarction; ca1 - PSHx: 10:54 CABG; ca1 - Immunization history:: Adult Immunizations up to date. - Social history:: Smoking status: Patient denies any tobacco usage or history of. - Family history:: not pertinent. ROS: 11:28 Constitutional: Negative for fever, chills, and weight loss, Eyes: Negative for injury, pritesh pain, redness, and discharge, ENT: Negative for injury, pain, and discharge, Neck: Negative for injury, pain, and swelling, Cardiovascular: Negative for chest pain, palpitations, and edema, Respiratory: Negative for shortness of breath, cough, wheezing, and pleuritic chest pain, Back: Negative for injury and pain, : Negative for injury, bleeding, discharge, and swelling, Skin: Negative for injury, rash, and discoloration, Psych: Negative for depression, anxiety, suicide ideation, homicidal ideation, and hallucinations, Allergy/Immunology: Negative for hives, rash, and allergies, Endocrine: Negative for neck swelling, polydipsia, polyuria, polyphagia, and marked weight changes. 11:28 Abdomen/GI: Positive for abdominal pain, nausea, abdominal cramps, anorexia. 11:28 MS/extremity: Positive for pain, swelling, of the right leg. Exam: 11:28 Constitutional: This is a well developed, well nourished patient who is awake, alert, pritesh and in no acute distress. Head/Face: Normocephalic, atraumatic. Eyes: Pupils equal round and reactive to light, extra-ocular motions intact. Lids and lashes normal. Conjunctiva and sclera are non-icteric and not injected. Cornea within normal limits. Periorbital areas with no swelling, redness, or edema. ENT: Nares patent. No nasal discharge, no septal abnormalities noted. Tympanic membranes are normal and external auditory canals are clear. Oropharynx with no redness, swelling, or masses, exudates, or evidence of obstruction, uvula midline. Mucous membranes moist. Neck: Trachea midline, no thyromegaly or masses palpated, and no cervical lymphadenopathy. Supple, full range of motion without nuchal rigidity, or vertebral point tenderness. No Meningismus. Chest/axilla: Normal chest wall appearance and motion. Nontender with no deformity. No lesions are appreciated. Cardiovascular: Regular rate and rhythm with a normal S1 and S2. No gallops, murmurs, or rubs. Normal PMI, no JVD. No pulse deficits. Respiratory: Lungs have equal breath sounds bilaterally, clear to auscultation and percussion. No rales, rhonchi or wheezes noted. No increased work of breathing, no retractions or nasal flaring. Back: No spinal tenderness. No costovertebral tenderness. Full range of motion. Skin: Warm, dry with normal turgor. Normal color with no rashes, no lesions, and no evidence of cellulitis. Neuro: Awake and alert, GCS 15, oriented to person, place, time, and situation. Cranial nerves II-XII grossly intact. Motor strength 5/5 in all extremities. Sensory grossly intact. Cerebellar exam normal. Normal gait. Psych: Awake, alert, with orientation to person, place and time. Behavior, mood, and affect are within normal limits. 11:28 Abdomen/GI: Inspection: abdomen appears normal, Bowel sounds: normal, Palpation: mild abdominal tenderness, in all quadrants, Liver: no appreciated palpable abnormalities, Hernia: not appreciated. 13:08 ECG was reviewed by the Attending Physician. [facility] Vital Signs: 10:48 BP 163 / 79; Pulse 94; Resp 19 S; Temp 98.4(O); Pulse Ox 99% on R/A; Weight 48.53 kg ca1 (R); Height 5 ft. 2 in. (157.48 cm) (R); Pain 3/10; 11:15 BP 116 / 89; Pulse 95; Resp 18 S; Pulse Ox 100% on R/A; ca1 12:55 BP 137 / 65; Pulse 73; Resp 20 S; Pulse Ox 100% on R/A; ca1 13:30 BP 114 / 84; Pulse 86; Resp 19 S; Pulse Ox 99% on R/A; ca1 14:23 BP 145 / 73; Pulse 81; Resp 22; Pulse Ox 100% ; bp 15:43 BP 120 / 72; Pulse 81; Resp 19 S; Pulse Ox 100% on R/A; ca1 10:48 Body Mass Index 19.57 (48.53 kg, 157.48 cm) ca1 MDM: 10:55 Patient medically screened. [facility] 11:33 Differential diagnosis: bowel obstruction, cholecystitis, Cholelithiasis, pritesh diverticulitis, gastritis, Hepatitis, Mesenteric ischemia or infarction, non-specific abd pain, pancreatitis, Peptic Ulcer Disease, Perf. Gastric Ulcer, Pyelonephritis, urinary tract infection. Differential Diagnosis. Data reviewed: vital signs, nurses notes, lab test result(s), EKG, radiologic studies, CT scan, plain films. 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 Test interpretation: by ED physician or midlevel provider: ECG, plain radiologic studies. Counseling: I had a detailed discussion with the patient and/or guardian regarding: the historical points, exam findings, and any diagnostic results supporting the discharge/admit diagnosis, radiology results, the need for outpatient follow up, the need for further work-up and treatment in the hospital. 13:03 ED course: dw with family an d patient want to go to [facility]. [facility] 04/05 11:00 Order name: Basic Metabolic Panel [facility] 04/05 11:00 Order name: CBC with Diff [facility] 04/05 11:00 Order name: LFT's [facility] 04/05 11:00 Order name: Magnesium [facility] 04/05 11:00 Order name: NT PRO-BNP [facility] 04/05 11:00 Order name: Troponin (emerg Dept Use Only) [facility] 04/05 11:00 Order name: Lipase [facility] 04/05 11:00 Order name: Urine Culture [facility] 04/05 11:00 Order name: Blood Culture Adult (2) [facility] 04/05 11:00 Order name: Lactate [facility] 04/05 11:56 Order name: CBC with Automated Diff; Complete Time: 12:45 EDMD 04/05 11:56 Order name: Lactate; Complete Time: 12:02 EDMD 04/05 12:00 Order name: Basic Metabolic Panel; Complete Time: 12:02 [facility] 04/05 12:00 Order name: Liver (Hepatic) Function; Complete Time: 12:02 [facility] 04/05 11:00 Order name: XRAY Chest (1 view) [facility] 04/05 11:27 Order name: US Extremity Venous Unilateral Ltd [facility] 04/05 11:34 Order name: CT Abd/Pelvis - Without Contrast; Complete Time: 12:45 [facility] 04/05 12:00 Order name: Troponin (Emerg Dept Use Only); Complete Time: 12:02 [facility] 04/05 12:00 Order name: NT PRO-BNP; Complete Time: 12:02 [facility] 04/05 12:00 Order name: Magnesium; Complete Time: 12:02 [facility] 04/05 12:00 Order name: Lipase; Complete Time: 12:02 [facility] 04/05 12:09 Order name: RAD; Complete Time: 12:45 [facility] 04/05 12:13 Order name: Urine Dipstick--Ancillary (enter results) 04/05 12:17 Order name: Manual Differential; Complete Time: 12:45 [facility] 04/05 12:40 Order name: CREATININE WHOLE BLOOD; Complete Time: 12:45 [facility] 04/05 11:00 Order name: EKG; Complete Time: 11:01 [facility] 04/05 11:00 Order name: Cardiac monitoring; Complete Time: 11:16 [facility] 04/05 11:00 Order name: EKG - Nurse/Tech; Complete Time: 11:27 [facility] 04/05 11:00 Order name: IV Saline Lock; Complete Time: 11:27 [facility] 04/05 11:00 Order name: Labs collected and sent; Complete Time: [facility] 04/05 11:00 Order name: O2 Per Protocol; Complete Time: [facility] 04/05 11:00 Order name: O2 Sat Monitoring; Complete Time: [facility] 04/05 11:00 Order name: Urine Dipstick-Ancillary (obtain specimen); Complete Time: 12:08 [facility] EC:08 Rate is 85 beats/min. Rhythm is regular. QRS [place] is Normal. NE interval is normal. QRS pritesh interval is normal. QT interval is normal. No Q waves. T waves are Normal. No ST changes noted. Clinical impression: NSR w/ Non-specific ST/T Changes and No evidence of ischemia. Interpreted by me. Reviewed by me. Administered Medications: 11:33 Not Given (Patient Refused): Benadryl 25 mg IVP once ca1 11:33 Not Given (Patient Refused): Pepcid 20 mg IVP once ca1 11:33 Not Given (Patient Refused): SOLU-Medrol 2 mg/kg IVP once ca1 11:37 Drug: NS 0.9% 500 ml Route: IV; Rate: bolus; Site: left forearm; ca1 13:55 Follow up: Response: No adverse reaction; IV Status: Completed infusion; IV Intake: ca1 500ml 11:50 Drug: NS 0.9% 1000 ml Route: IV; Rate: 125 ml/hr; Site: left antecubital; bp 14:45 Follow up: Response: No adverse reaction; IV Status: Infusion continued upon transfer ca1 12:55 Drug: Rocephin 1 grams Route: IV; Rate: per protocol; Site: right forearm; ca1 13:27 Follow up: Response: No adverse reaction; IV Status: Completed infusion ca1 13:00 Drug: Pepcid 20 mg Route: IVP; Site: left forearm; ca1 14:32 Follow up: Response: No adverse reaction ca1 13:03 Drug: Flagyl 500 mg Volume: 100 ml; Route: IVPB; Rate: 200 ml/hr; Infused Over: 30 ca1 mins; Site: left forearm; 14:31 Follow up: Response: No adverse reaction; IV Status: Completed infusion; IV Intake: ca1 100ml 13:26 Drug: Lovenox 1 mg/kg Route: Sub-Q; Site: right lower abdomen; ca1 14:32 Follow up: Response: No adverse reaction ca1 Disposition: 04/05/20 13:08 Transfer ordered to [facility]. Diagnosis are Acute embolism and thrombosis of deep veins of lower extremity - right, Elevated white blood cell count, Malignant neoplasm of cervix uteri, unspecified - advanced, Urinary tract infection, site not specified, Type 2 diabetes mellitus, Anorexia. - Reason for transfer: Higher level of care. - Accepting physician is to [facility]. - Condition is Fair. - Problem is new. - Symptoms have improved. Signatures: Dispatcher [employer] EDMS Steven Arceo MD MD cha Peltier, Brian, RN RN bp Ashley Alford RN RN ca1 Corrections: (The following items were deleted from the chart) 13:09 13:08 04/05/2020 13:08 Transfer ordered to [facility]. Diagnosis is Acute embolism and pritesh thrombosis of deep veins of lower extremity - right; Elevated white blood cell count; Malignant neoplasm of cervix uteri, unspecified - advanced; Urinary tract infection, site not specified. Reason for transfer: Higher level of care. Accepting physician is to [facility]. Condition is Fair. Problem is new. Symptoms have improved. pritesh 15:54 13:09 04/05/2020 13:08 Transfer ordered to [facility]. Diagnosis is Acute embolism and ca1 thrombosis of deep veins of lower extremity - right; Elevated white blood cell count; Malignant neoplasm of cervix uteri, unspecified - advanced; Urinary tract infection, site not specified; Type 2 diabetes mellitus; Anorexia. Reason for transfer: Higher level of care. Accepting physician is to [facility]. Condition is Fair. Problem is new. Symptoms have improved. pritesh
[2020-04-05] MEDS ORDERED: ENOXAPARIN 60 MG/0.6 ML SQ ONE (13:23)
[2020-04-05] MEDS ORDERED: FAMOTIDINE 20 MG/2 ML VIAL IV ONE (13:23)
[2020-04-05] MEDS ORDERED: METRONIDAZOLE 500mg IVPB 500 MG/100 ML BAG IV ONE (13:24)
[2020-04-05 13:26] LABS: Urine Blood 2+ (NEG); Urine Glucose NEGATIVE (NEG); Urine Protein 2+ (NEG)
[2020-04-05 16:25] VITALS: TEMP 98.4
[2020-04-05 16:40] VITALS: O2SAT 100
[2020-04-05 16:48] VITALS: BP 120/72
--- NOTE | 2020-04-06 10:46 | EKG ---
Test Date: 2020-04-05 Test Time: 11:26:59 Fiber Technician: RAMONITA MEASUREMENT RESULTS: Intervals: Rate: 85 DC: 150 QRSD: 72 QT: 354 QTc: 421 Lester: P: 68 DC: 150 QRS: 18 T: 70 INTERPRETIVE STATEMENTS: Normal sinus rhythm Normal ECG Compared to ECG 03/07/2020 22:05:47 ST (T wave) deviation no longer present Possible ischemia no longer present Electronically Signed On 04-06-20 10:45:00 CDT by Jordan Tovar
== END 2020-04-05 15:54 | disposition short-term general hospital (02) ==
LOC: ER 10:39
DX: I82.401 Acute embolism and thrombosis of unspecified deep veins of right lower extremity (principal); D72.829 Elevated white blood cell count, unspecified; N39.0 Urinary tract infection, site not specified; C53.9 Malignant neoplasm of cervix uteri, unspecified; E11.9 Type 2 diabetes mellitus without complications; R63.0 Anorexia; I10 Essential (primary) hypertension; Z95.1 Presence of aortocoronary bypass graft; Z79.82 Long term (current) use of aspirin; Z88.2 Allergy status to sulfonamides
CPT/HCPCS: 96365; 96361; 96368; 93005; 87040 ×2; 87088; 85025; 87086; 80048; 36415; 83735; 82565; 80076; 83605; 81003; 84484; 83690; 83880; 74176; 71045; 93971; 51702; 96375; 96372; 99285; J1650; J0696; J7030

== ENCOUNTER 2020-06-16 11:31 | Emergency (ER) | payer OTHER ==
[2020-06-16 15:21] LABS: Urine Glucose NEGATIVE (NEG)
[2020-06-16 15:22] LABS: Urine Blood 3+ (NEG); Urine Protein 2+ (NEG)
--- NOTE | 2020-06-16 15:45 | RAD REPORT ---
EXAM DESCRIPTION: CT - Stone Protocol - 06/16/2020 3:23 pm CLINICAL HISTORY: Flank pain. ABD PAIN COMPARISON: Abdomen Pelvis Wo Contrast dated 04/05/2020; Abdomen Pelvis W Contrast dated 0 TECHNIQUE: Axial images were obtained without oral or IV contrast. Lack of contrast limits solid org an and vascular assessment. The vshqo-yw-diyi spans the entirety of the system partially obscuring uppermost abdomen and lung bases. Coronal reformatted images were obtained and reviewed. All CT scans are performed using dose optimization technique as appropriate and may include automated exposure control or mA/KV adjustment according to patient size. FINDINGS: The lower lung hanley are clear. Imaged portions of the liver and spleen show no suspicious findings on non-contrast imaging. 20 mm ri ght adrenal mass is present with Hounsfield units of 36 HU, suggesting a non-adenomatous lesion.Maribel l left adrenal gland. Normal pancreas. No pathologic lymphadenopathy in the abdomen or pelvis. Very large right renal staghorn calculus. Moderate right ureter dilatation with numerous calcificatio ns in the expected location of the right UVJ or urinary bladder. Punctate left nephrolithiasis is present with moderate left hydronephrosis and hydroureter and severa l calcifications in the expected location of the distal left ureter/urinary bladder. Air is present i n the urinary bladder. There is a large irregular necrotic cervical mass present likely carcinoma. 4 x 3 cm conglomerate of soft tissue which is poorly defined along the right pelvic sidewall likely indicates metastatic adeno boby. No bowel obstruction, free fluid or abscess.Nonvisualized appendix. No lytic or blastic bone lesion. Moderate lumbosacral degenerative changes. IMPRESSION: Large right-sided staghorn calculus is present. Several small stones are present in the distal suspected right ureter location urinary bladder region. Punctate left nephrolithiasis with moderate left hydronephrosis and hydroureter with several calcific ations also noted in the expected location of distal left ureter and dependent urinary bladder. Large irregular necrotic cervical mass likely malignant. Soft tissue fullness along the right pelvic sidewall is noted measuring up to 4 x 3 cm, likely metastatic adenopathy.
[2020-06-16] MEDS ORDERED: NA CHLORIDE 0.9% 500 ML ONE (16:09)
[2020-06-16] MEDS ORDERED: CEFTRIAXONE/SWI 1gm 1 GM/10 ML SYR ONE (16:09)
[2020-06-16 16:21] LABS: Absolute Lymphocytes (CBC) 1.5 K/uL (0.7-4.9); Basophils % 0.4 % (0-1.3); Hematocrit 33.3 % (36.0-45.0); Lymphocytes % 8.6 % (15.3-44.8); MPV 8.2 fL (7.6-11.3); RBC Red Blood Cell Count 3.79 M/uL (3.86-4.86)
[2020-06-16 16:35] LABS: BUN Blood Urea Nitrogen 19 mg/dL (7-18); Bicarbonate 31 mmol/L (21-32); Glucose Level 105 mg/dL (74-106); Potassium 3.3 mmol/L (3.5-5.1); Sodium Level 141 mmol/L (136-145)
--- NOTE | 2020-06-16 17:13 | ER ---
Nurse's Notes [facility] Name: Meena Gandhi Age: 75 yrs Sex: Female : 1945 Arrival Date: 06/16/2020 Time: 11:33 Bed 19 Private MD: Diagnosis: Urinary tract infection, site not specified;Malignant neoplasm of cervix uteri, unspecified Presentation: 06/16 11:41 Chief complaint: urinary urgency and frequency and burning with urination x 3 weeks. hb Coronavirus screen: At this time, the client does not indicate any symptoms associated with coronavirus-19. Ebola Screen: No symptoms or risks identified at this time. Initial Sepsis Screen: Does the patient meet any 2 criteria? HR > 90 bpm. No. Patient's initial sepsis screen is negative. Does the patient have a suspected source of infection? No. Patient's initial sepsis screen is negative. Risk Assessment: Do you want to hurt yourself or someone else? Patient reports no desire to harm self or others. Onset of symptoms was May 2020. 11:41 Method Of Arrival: Wheelchair hb 11:41 Acuity: MIGUELITO 3 hb Historical: - Allergies: 11:43 Sulfa (Sulfonamide Antibiotics); hb - PMHx: 11:43 Diabetes - NIDDM; Hypertension; Myocardial infarction; hb - PSHx: 11:43 CABG; hb - Immunization history:: Adult Immunizations up to date. - Social history:: Smoking status: Patient denies any tobacco usage or history of. Screenin:55 Abuse screen: Denies threats or abuse. Denies injuries from another. Nutritional ph screening: No deficits noted. Tuberculosis screening: No symptoms or risk factors identified. Fall Risk None identified. Assessment: 14:54 General: Appears in no apparent distress. comfortable, slender, Behavior is ph cooperative, appropriate for age, anxious, Denies fever. Pain: Complains of pain in pelvis. Neuro: Level of Consciousness is awake, alert, obeys commands, Oriented to person, place, time, situation. Cardiovascular: Capillary refill < 3 seconds in bilateral fingers Patient's skin is warm and dry. Respiratory: Airway is patent Respiratory effort is even, unlabored, Respiratory pattern is regular, symmetrical. GI: Reports lower abdominal pain, constipation. : Reports burning with urination, incontinence, urinary frequency, vaginal itching. Derm: Skin is intact, Skin is pink, warm \T\ dry. Musculoskeletal: Circulation, motion, and sensation intact. Range of motion: intact in all extremities. 16:24 Reassessment: Patient appears in no apparent distress at this time. Patient and/or ph family updated on plan of care and expected duration. Pain level reassessed. Patient is alert, oriented x 3, equal unlabored respirations, skin warm/dry/pink. Vital Signs: 11:41 BP 125 / 65; Pulse 106; Resp 18; Temp 98.4; Pulse Ox 100% on R/A; Pain 4/10; hb 16:19 BP 144 / 60; Pulse 73; Resp 18; Pulse Ox 99% on R/A; ph 17:30 BP 138 / 58; Pulse 76; Resp 18; Temp 97.6; Pulse Ox 99% on R/A; ph ED Course: 11:33 Patient arrived in ED. rg4 11:35 Kristin Contreras FNP-C is PHCP. kb 11:35 Noemi Hale MD is Attending Physician. kb 11:42 Triage completed. hb 11:43 Arm band placed on. hb 14:19 Kristin Contreras FNP-C is PHCP. kb 14:20 Noemi Hale MD is Attending Physician. kb 14:24 Renee Triplett, JOELLE is Primary Nurse. ph 14:55 Patient has correct armband on for positive identification. Bed in low position. Call ph light in reach. Side rails up X 1. Pulse ox on. NIBP on. Door closed. Noise minimized. Warm blanket given. 15:12 Inserted saline lock: 22 gauge in left forearm, using aseptic technique. dh3 15:23 CT Stone Protocol In Process Unspecified. EDMS 17:54 No provider procedures requiring assistance completed. IV discontinued, intact, ph bleeding controlled, No redness/swelling at site. Pressure dressing applied. Administered Medications: 16:15 Drug: Rocephin 1 grams Route: IV; Rate: calculated rate; Site: left wrist; ph 16:30 Follow up: Response: No adverse reaction; IV Status: Completed infusion ph 16:18 Drug: NS 0.9% 500 ml Route: IV; Rate: bolus; Site: left forearm; ph 17:15 Follow up: Response: No adverse reaction; IV Status: Completed infusion; IV Intake: ph 500ml 17:54 Drug: DiFLUcan 100 mg Route: PO; ph 17:55 Follow up: Response: No adverse reaction; Medication administered at discharge. ph Intake: 17:15 IV: 500ml; Total: 500ml. ph Outcome: 17:12 Discharge ordered by . kahlil 17:54 Patient left the ED. ph 17:54 Discharged to home via wheelchair. ph 17:54 Condition: good 17:54 Discharge instructions given to patient, Instructed on discharge instructions, follow up and referral plans. medication usage, Demonstrated understanding of instructions, follow-up care, medications, Prescriptions given X 1. Signatures: Dispatcher [employer] EDMS Kristin Contreras, MARKETING REPORTING ANALYST-C MARKETING REPORTING ANALYST-Renee Jean-Baptiste RN RN Kristina Haas RN RN Chasity Murphy 4 Karen Ibarra 3 Corrections: (The following items were deleted from the chart) 11:43 11:41 Chief complaint: urinary urgency and frequency and burning with urination x 3 hb weeks. hb 16:24 14:54 GI: Reports lower abdominal pain, ph ph 16:24 14:54 : Reports burning with urination, incontinence, urinary frequency, ph ph
--- NOTE | 2020-06-16 17:13 | EDPHYS ---
Physician Documentation [facility] Name: Meena Gandhi Age: 75 yrs Sex: Female : 1945 Arrival Date: 06/16/2020 Time: 11:33 Bed 19 Private MD: ED Physician Noemi Hale HPI: 06/16 16:03 This 75 yrs old Female presents to ER via Wheelchair with complaints of kb Urinary Frequency. 16:16 The patient presents with urinary symptoms, dysuria, frequency. Onset: The kb symptoms/episode began/occurred 3 month(s) ago. Modifying factors: The symptoms are alleviated by nothing, the symptoms are aggravated by urinating. Associated signs and symptoms: Pertinent positives: dysuria, urinary frequency. The patient has not experienced similar symptoms in the past. The patient has not recently seen a physician. Pt reports suprapubic pain, weight loss, decreased appetite, dysuria, urinary frequency and constipation. States the symptoms have been going on for 3 months. REports BM every 4 or 5 days after intervention. "I think all of this would get better if I had a hysterectomy.". Historical: - Allergies: 11:43 Sulfa (Sulfonamide Antibiotics); hb - PMHx: 11:43 Diabetes - NIDDM; Hypertension; Myocardial infarction; hb - PSHx: 11:43 CABG; hb - Immunization history:: Adult Immunizations up to date. - Social history:: Smoking status: Patient denies any tobacco usage or history of. ROS: 15:59 Constitutional: Negative for fever, chills, and weight loss, Cardiovascular: Negative kb for chest pain, palpitations, and edema, Respiratory: Negative for shortness of breath, cough, wheezing, and pleuritic chest pain, Back: Negative for injury and pain, MS/Extremity: Negative for injury and deformity, Skin: Negative for injury, rash, and discoloration, Neuro: Negative for headache, weakness, numbness, tingling, and seizure. 15:59 Abdomen/GI: Positive for abdominal pain, of the suprapubic area. 15:59 : Positive for urinary symptoms, urinary frequency, burning with urination. Exam: 15:59 Constitutional: This is a well developed, well nourished patient who is awake, alert, kb and in no acute distress. Head/Face: Normocephalic, atraumatic. Chest/axilla: Normal chest wall appearance and motion. Nontender with no deformity. No lesions are appreciated. Cardiovascular: Regular rate and rhythm with a normal S1 and S2. No gallops, murmurs, or rubs. Normal PMI, no JVD. No pulse deficits. Respiratory: Lungs have equal breath sounds bilaterally, clear to auscultation and percussion. No rales, rhonchi or wheezes noted. No increased work of breathing, no retractions or nasal flaring. Back: No spinal tenderness. No costovertebral tenderness. Full range of motion. Skin: Warm, dry with normal turgor. Normal color with no rashes, no lesions, and no evidence of cellulitis. MS/ Extremity: Pulses equal, no cyanosis. Neurovascular intact. Full, normal range of motion. Neuro: Awake and alert, GCS 15, oriented to person, place, time, and situation. Cranial nerves II-XII grossly intact. Motor strength 5/5 in all extremities. Sensory grossly intact. Cerebellar exam normal. Normal gait. 15:59 Abdomen/GI: Inspection: abdomen appears normal, Bowel sounds: normal, in all quadrants, Palpation: soft, in all quadrants, moderate abdominal tenderness, in the suprapubic area. Vital Signs: 11:41 BP 125 / 65; Pulse 106; Resp 18; Temp 98.4; Pulse Ox 100% on R/A; Pain 4/10; hb 16:19 BP 144 / 60; Pulse 73; Resp 18; Pulse Ox 99% on R/A; ph 17:30 BP 138 / 58; Pulse 76; Resp 18; Temp 97.6; Pulse Ox 99% on R/A; ph MDM: 14:20 Patient medically screened. kb 15:57 Data reviewed: vital signs, nurses notes. Data interpreted: Pulse oximetry: on room air kb is 100 %. Interpretation: normal. ED course: Discussed CT findings with pt. States she saw an oncologist at [facility], but she doesn't want chemo or radiation she just wants a hysterectomy. STates she knows too many people that suffered during the treatment so she doesn't want that. "I will just trust that God will heal me.". 17:11 Counseling: I had a detailed discussion with the patient and/or guardian regarding: the kb historical points, exam findings, and any diagnostic results supporting the discharge/admit diagnosis, lab results, radiology results, the need for outpatient follow up, a family practitioner, an OB/Gyne specialist, to return to the emergency department if symptoms worsen or persist or if there are any questions or concerns that arise at home. ED course: Discussed diagnostics, history and exam with Dr Hale. Agrees with outpatient follow up. 17:19 ED course: Pt educated on importance of follow up with oncology. Pt states she has the oncologist's name and number at home and will call them tomorrow. PT requests to go home now because she doesn't drive at night.. 06/16 11:35 Order name: Urine Microscopic Only 06/16 14:43 Order name: CBC with Diff; Complete Time: 17:07 kb 06/16 14:43 Order name: Basic Metabolic Panel 06/16 14:57 Order name: Urine Dipstick--Ancillary (enter results) bd 06/16 15:22 Order name: Urine Dipstick-Ancillary; Complete Time: 15:23 EDMS 06/16 16:36 Order name: Basic Metabolic Panel; Complete Time: 16:36 EDMS 06/16 11:35 Order name: Urine Dipstick-Ancillary (obtain specimen); Complete Time: 15:18 kb 06/16 14:43 Order name: IV Start; Complete Time: 15:18 kb 06/16 15:06 Order name: CT Stone Protocol; Complete Time: 15:47 kb Administered Medications: 16:15 Drug: Rocephin 1 grams Route: IV; Rate: calculated rate; Site: left wrist; ph 16:30 Follow up: Response: No adverse reaction; IV Status: Completed infusion ph 16:18 Drug: NS 0.9% 500 ml Route: IV; Rate: bolus; Site: left forearm; ph 17:15 Follow up: Response: No adverse reaction; IV Status: Completed infusion; IV Intake: ph 500ml 17:54 Drug: DiFLUcan 100 mg Route: PO; ph 17:55 Follow up: Response: No adverse reaction; Medication administered at discharge. ph Disposition: 18:00 Co-signature as Attending Physician, Noemi Hale MD. ma2 Disposition: 06/16/20 17:12 Discharged to Home. Impression: Urinary tract infection, site not specified, Malignant neoplasm of cervix uteri, unspecified. - Condition is Stable. - Discharge Instructions: Urinary Tract Infection, Adult, [id number]. - Prescriptions for Augmentin 875- 125 mg Oral Tablet - take 1 tablet by ORAL route every 12 hours for 10 days; 20 tablet. - Medication Reconciliation Form, Thank You Letter, Antibiotic Education, Prescription Opioid Use form. - Follow up: Emergency Department; When: As needed; Reason: Worsening of condition. Follow up: Private Physician; When: 2 - 3 days; Reason: Recheck today's complaints, Continuance of care, Re-evaluation by your physician. - Notes: Follow up with Oncologist that you saw at [facility] to discuss plan for cancer treatment Signatures: Dispatcher [employer] EDAK Kristin Contreras, DOG DAYCARE PROVIDER-C DOG DAYCARE PROVIDER-Renee Jean-Baptiste, RN RN Kristina Haas RN RN Noemi Hale MD MD ma2 Corrections: (The following items were deleted from the chart) 15:08 14:44 Abdomen Pelvis W Con+CT.RAD.BRZ ordered. [facility] 17:12 17:12 06/16/2020 17:12 Discharged to Home. Impression: Urinary tract infection, site kb not specified. Condition is Stable. Forms are Medication Reconciliation Form, Thank You Letter, Antibiotic Education, Prescription Opioid Use. Follow up: Emergency Department; When: As needed; Reason: Worsening of condition. Follow up: Private Physician; When: 2 - 3 days; Reason: Recheck today's complaints, Continuance of care, Re-evaluation by your physician. kb 17:54 17:12 06/16/2020 17:12 Discharged to Home. Impression: Urinary tract infection, site ph not specified; Malignant neoplasm of cervix uteri, unspecified. Condition is Stable. Forms are Medication Reconciliation Form, Thank You Letter, Antibiotic Education, Prescription Opioid Use. Follow up: Emergency Department; When: As needed; Reason: Worsening of condition. Follow up: Private Physician; When: 2 - 3 days; Reason: Recheck today's complaints, Continuance of care, Re-evaluation by your physician. kb
[2020-06-16] MEDS ORDERED: FLUCONAZOLE 100 MG TAB ONE (17:37)
[2020-06-16 18:07] LABS: Urine Bacteria LOADED /HPF (<20); Urine RBC 20-50 /HPF (NONE SEEN)
--- OUTSIDE RECORDS SUMMARY | 2020-06-16 19:49 | XMS REPORT | Continuity of Care Document ---
:1945 Author Organization [facility] t Address [address] [place] [address] Care Team Providers Name Role Phone Carmela PALMA Primary Care Physician Unavailable SYSTEM, NOT IN Attending Clinician Unavailable Doctor Unassigned, Name Attending Clinician Unavailable Francisco Javier DENTON Attending Clinician Candelaria LAI, A Attending Clinician Unavailable Problems This patient has no known problems. Allergies, Adverse Reactions, Alerts This patient has no known allergies or adverse reactions. Medications This patient has no known medications. Procedures This patient has no known procedures. Encounters Start End Encounter Admission Attending Care Care Encounter Source Date/Time Date/Time Type Type Clinicians Facility Department ID 2020-04-14 Outpatient SYSTEM, [facility] [id number] 10:40:33 PROVIDER Alexandro welch 2020-04-30 2020-04-30 Orders Doctor PEDRO [id number] [id number] 00:00:00 00:00:00 Only UnassDAHIANA yuan [id number] [facility] [id number] 2020-04-16 2020-04-16 Letter Padmaja Mcintyre 1.2.840.114 [id number] 00:00:00 00:00:00 (Out) Jeyson Rivera [id number] Hospital [id number] 2020-04-16 2020-04-16 Orders Doctor PEDRO 1.2.840.114 [id number] 00:00:00 00:00:00 Only Unassigned, DAHIANA [id number] [facility] [id number] 2020-04-13 2020-04-13 Telephone Francisco Javier BONI 1.2.840.11 [id number] 00:00:00 00:00:00 [facility] [id number] [facility] [id number] 2020-04-09 2020-04-09 Transition Una Gaona [id number] 00:00:00 00:00:00 of Care Matt Holland [id number] [place] [id number] 2020-04-09 2020-04-09 Telephone BONI Mcintyre 1.2.840.11 [id number] 00:00:00 00:00:00 JeysonKreyonic [id number] [facility] [id number] [id number] Results This patient has no known results.
== END 2020-06-16 17:54 | disposition home or self-care (01) ==
LOC: ER 11:31
DX: N39.0 Urinary tract infection, site not specified (principal); C53.9 Malignant neoplasm of cervix uteri, unspecified; I10 Essential (primary) hypertension; I25.2 Old myocardial infarction; Z95.1 Presence of aortocoronary bypass graft; Z88.2 Allergy status to sulfonamides
CPT/HCPCS: 87088; 85025; 87086; 80048; 36415; 76377; 74176; J0696; J7040; 81003; 81015; 96361; 96374; 99284

== ENCOUNTER 2020-06-19 05:19 | Emergency (ER) | payer OTHER ==
--- OUTSIDE RECORDS SUMMARY | 2020-06-19 05:20 | XMS REPORT | Continuity of Care Document ---
:1945 Author Organization [facility] t Address [address] [place] [address] Care Team Providers Name Role Phone Carmela PALMA Primary Care Physician Unavailable SYSTEM, NOT IN Attending Clinician Unavailable Doctor Unassigned, Name Attending Clinician Unavailable Francisco Javier DENTON Attending Clinician Candelaria RN, A Attending Clinician Unavailable Problems This patient has no known problems. Allergies, Adverse Reactions, Alerts This patient has no known allergies or adverse reactions. Medications This patient has no known medications. Procedures This patient has no known procedures. Encounters Start End Encounter Admission Attending Care Care Encounter Source Date/Time Date/Time Type Type Clinicians Facility Department ID 2020-04-14 Outpatient SYSTEM, [facility] [id number] 10:40:33 PROVIDER Alexandro welch 2020-04-30 2020-04-30 Orders Doctor PEDRO 1.2.840.114 [id number] 00:00:00 00:00:00 Only UnassDAHIANA yuan [id number] [facility] 4.2.7.2.686 [id number] 2020-04-16 2020-04-16 Letter Padmaja Mcintyre 1.2.840.114 [id number] 00:00:00 00:00:00 (Out) Jeyson Rivera [id number] [facility] [id number] 2020-04-16 2020-04-16 Orders Doctor WILLIS 1.2.840.114 [id number] 00:00:00 00:00:00 Only Unassigned, DAHIANA [id number] [place] [facility] 4.2.7.2.686 [id number] 2020-04-13 2020-04-13 Telephone McintyreBONI mc 1.2.840.11 [id number] 00:00:00 00:00:00 Jeyson [employer] [id number] [facility] [id number] [id number] 2020-04-09 2020-04-09 Transition Irineo Gaonarebekah 1.2.840.114 [id number] 00:00:00 00:00:00 of Care Matt Holland [id number] [place] 4.2.7.2.686 [id number] 2020-04-09 2020-04-09 Telephone EVELYN Mcintyre 1.2.840.11 [id number] 00:00:00 00:00:00 [facility] [employer] [id number] [facility] 4.2.7.2.686 [id number] Results This patient has no known results.
[2020-06-19] MEDS ORDERED: NA CHLORIDE 0.9% 500 ML ONE (06:11)
[2020-06-19 06:18] LABS: Absolute Lymphocytes (CBC) 0.9 K/uL (0.7-4.9); Basophils % 0.5 % (0-1.3); Hematocrit 33.1 % (36.0-45.0); Lymphocytes % 6.7 % (15.3-44.8); MPV 8.3 fL (7.6-11.3); RBC Red Blood Cell Count 3.76 M/uL (3.86-4.86)
[2020-06-19 06:23] LABS: Urine RBC TNTC /HPF (NONE SEEN)
[2020-06-19 06:24] LABS: Urine Bacteria >50 /HPF (<20); Urine Mucus 1+ /HPF (NONE SEEN)
[2020-06-19 06:25] LABS: ALT/SGPT 13 U/L (12-78); Albumin 2.8 g/dL (3.4-5.0); Alkaline Phosphatase 48 U/L (45-117); BUN Blood Urea Nitrogen 15 mg/dL (7-18); Bicarbonate 31 mmol/L (21-32); Bilirubin Direct < 0.1 mg/dL (0-0.2); Bilirubin Total 0.4 mg/dL (0.2-1.0); Glucose Level 111 mg/dL (74-106); Lipase 73 U/L (73-393); Protein, Total 6.8 g/dL (6.4-8.2); Sodium Level 143 mmol/L (136-145)
[2020-06-19 06:36] LABS: AST/SGOT 29 U/L (15-37); Potassium 3.4 mmol/L (3.5-5.1)
--- NOTE | 2020-06-19 07:06 | ER ---
Nurse's Notes [facility] Name: Meena Gandhi Age: 75 yrs Sex: Female : 1945 Arrival Date: 06/19/2020 Time: 05:29 Bed 15 Private MD: Diagnosis: Cystitis;Hematuria;Urinary tract infection, site not specified Presentation: 06/19 05:18 Chief complaint: EMS states: Reports pt complaining of possible vaginal bleeding, pt ea reports she has been having bleeding since 10 PM last night. Coronavirus screen: At this time, the client does not indicate any symptoms associated with coronavirus-19. Initial Sepsis Screen: Does the patient meet any 2 criteria? No. Patient's initial sepsis screen is negative. Does the patient have a suspected source of infection? No. Patient's initial sepsis screen is negative. Onset of symptoms was June 19, 2020. 05:18 Method Of Arrival: EMS: [facility] ea 05:54 Ebola Screen: No symptoms or risks identified at this time. ea 05:55 Risk Assessment: Do you want to hurt yourself or someone else? Patient reports no ea desire to harm self or others. 05:55 Acuity: MIGUELITO 3 ea Triage Assessment: 06:07 General: Appears in no apparent distress. Behavior is appropriate for age. Pain: Denies ea pain. Historical: - Allergies: 05:55 Sulfa (Sulfonamide Antibiotics); ea - Home Meds: 05:55 Metoprolol Tartrate Oral [Active]; Aspirin Oral [Active]; ea - PMHx: 05:55 Myocardial infarction; Hypertension; Diabetes - NIDDM; ea - PSHx: 05:55 CABG; ea - Immunization history:: Adult Immunizations up to date. - Social history:: Smoking status: Patient denies any tobacco usage or history of. Screenin:52 Abuse screen: Denies threats or abuse. Nutritional screening: No deficits noted. ea Tuberculosis screening: No symptoms or risk factors identified. Fall Risk IV access (20 points). Assessment: 05:20 General: Appears in no apparent distress. Behavior is appropriate for age. Pain: Denies ea pain. Neuro: Level of Consciousness is awake, alert, obeys commands, Oriented to person, place, time, situation. Cardiovascular: Patient's skin is warm and dry. Respiratory: Airway is patent Respiratory effort is even, unlabored, Respiratory pattern is regular, symmetrical. : Reports vaginal bleeding that is bright red. Derm: Skin is pink, warm \T\ dry. 06:30 Reassessment: Herman daughter [phone]. ea 07:00 Reassessment: Patient appears in no apparent distress at this time. No changes from jl7 previously documented assessment. Patient and/or family updated on plan of care and expected duration. Pain level reassessed. Patient is alert, oriented x 3, equal unlabored respirations, skin warm/dry/pink. 07:10 Reassessment: Dr. Dennis at bedside discussing results and POC. jl7 07:35 Reassessment: Pt reports h daughter is looking for a car to borrow. Pt will be jl7 discharged once daughter arrives. Vital Signs: 05:18 BP 136 / 68; Pulse 78; Resp 16; Temp 98; Pulse Ox 97% ; Weight 45.36 kg; Height 5 ft. 2 ea in. (157.48 cm); 07:10 BP 145 / 60; Pulse 56; Resp 17; Pulse Ox 100% ; jl7 05:18 Body Mass Index 18.29 (45.36 kg, 157.48 cm) ea ED Course: 05:29 Patient arrived in ED. ea 05:45 Miah Dennis MD is Attending Physician. tw4 05:45 Straight cath inserted, using sterile technique, 16 Fr. Specimen obtained. Returned ea bloody urine. Patient tolerated well. 05:49 Anna Antunez, JOELLE is Primary Nurse. ea 05:51 Inserted saline lock: 20 gauge in right forearm, using aseptic technique. Blood ea collected. 05:52 Patient has correct armband on for positive identification. Placed in gown. Bed in low ea position. Call light in reach. Side rails up X2. 05:53 Patient placed in an exam room, on a stretcher, on pulse oximetry. ea 05:55 Triage completed. ea 07:35 No provider procedures requiring assistance completed. IV discontinued, intact, jl7 bleeding controlled, No redness/swelling at site. Pressure dressing applied. Administered Medications: 06:00 Drug: NS 0.9% 500 ml Route: IV; Rate: bolus; Site: right antecubital; ea 07:00 Follow up: Response: No adverse reaction; IV Status: Completed infusion; IV Intake: jl7 500ml 07:15 Drug: Rocephin 1 grams Route: IV; Rate: calculated rate; Site: right forearm; 07:18 Follow up: Response: No adverse reaction; IV Status: Completed infusion 07:32 Not Given (wrong pharmacy order): Rocephin - (cefTRIAXone) 1 grams IVPB once over 30 jl7 mins; (mix in 50 mL NS) Intake: 07:00 IV: 500ml; Total: 500ml. 7 Outcome: 07:05 Discharge ordered by . [email or web address] 07:40 Discharged to home via wheelchair. jl7 07:40 Condition: stable 07:40 Discharge instructions given to patient, Instructed on discharge instructions, follow up and referral plans. medication usage, Demonstrated understanding of instructions, follow-up care, medications, Prescriptions given X 3. 07:53 Patient left the ED. 7 Signatures: Evan Ravi RN RN say7 Anna Antunez RN RN ea Wadley, Terrence, MD MD tw4
--- NOTE | 2020-06-19 07:06 | EDPHYS ---
Physician Documentation [facility] Name: Meena Gandhi Age: 75 yrs Sex: Female : 1945 Arrival Date: 06/19/2020 Time: 05:29 Bed 15 Private MD: ED Physician Miah Dennis HPI: 06/19 06:08 This 75 yrs old Female presents to ER via EMS with unknown complaint. tw4 06:08 Onset: The symptoms/episode began/occurred today. Modifying factors: The symptoms are tw4 alleviated by nothing, the symptoms are aggravated by nothing. Associated signs and symptoms: The patient has no apparent associated signs or symptoms. The patient has not experienced similar symptoms in the past. Historical: - Allergies: 05:55 Sulfa (Sulfonamide Antibiotics); ea - Home Meds: 05:55 Metoprolol Tartrate Oral [Active]; Aspirin Oral [Active]; ea - PMHx: 05:55 Myocardial infarction; Hypertension; Diabetes - NIDDM; ea - PSHx: 05:55 CABG; ea - Immunization history:: Adult Immunizations up to date. - Social history:: Smoking status: Patient denies any tobacco usage or history of. ROS: 06:08 Positive for urinary symptoms. tw4 06:08 Constitutional: Negative for fever, chills, and weight loss, Eyes: Negative for injury, pain, redness, and discharge, Cardiovascular: Negative for chest pain, palpitations, and edema, Respiratory: Negative for shortness of breath, cough, wheezing, and pleuritic chest pain, Abdomen/GI: Negative for abdominal pain, nausea, vomiting, diarrhea, and constipation, Back: Negative for injury and pain, MS/Extremity: Negative for injury and deformity, Skin: Negative for injury, rash, and discoloration, Neuro: Negative for headache, weakness, numbness, tingling, and seizure. Exam: 06:08 Constitutional: This is a well developed, well nourished patient who is awake, alert, tw4 and in no acute distress. Head/Face: Normocephalic, atraumatic. Chest/axilla: Normal chest wall appearance and motion. Nontender with no deformity. No lesions are appreciated. Cardiovascular: Regular rate and rhythm with a normal S1 and S2. No gallops, murmurs, or rubs. Normal PMI, no JVD. No pulse deficits. Respiratory: Lungs have equal breath sounds bilaterally, clear to auscultation and percussion. No rales, rhonchi or wheezes noted. No increased work of breathing, no retractions or nasal flaring. Back: No spinal tenderness. No costovertebral tenderness. Full range of motion. Skin: Warm, dry with normal turgor. Normal color with no rashes, no lesions, and no evidence of cellulitis. MS/ Extremity: Pulses equal, no cyanosis. Neurovascular intact. Full, normal range of motion. Neuro: Awake and alert, GCS 15, oriented to person, place, time, and situation. Cranial nerves II-XII grossly intact. Motor strength 5/5 in all extremities. Sensory grossly intact. Cerebellar exam normal. Normal gait. 06:08 Abdomen/GI: Inspection: abdomen appears normal, Bowel sounds: normal, Palpation: moderate abdominal tenderness, in the suprapubic area. Vital Signs: 05:18 BP 136 / 68; Pulse 78; Resp 16; Temp 98; Pulse Ox 97% ; Weight 45.36 kg; Height 5 ft. 2 ea in. (157.48 cm); 07:10 BP 145 / 60; Pulse 56; Resp 17; Pulse Ox 100% ; jl7 05:18 Body Mass Index 18.29 (45.36 kg, 157.48 cm) ea MDM: 05:48 Patient medically screened. tw4 22:57 Differential diagnosis: urinary tract infection. Data reviewed: vital signs, nurses tw4 notes. Data interpreted: Pulse oximetry: Interpretation: normal. Counseling: I had a detailed discussion with the patient and/or guardian regarding: the historical points, exam findings, and any diagnostic results supporting the discharge/admit diagnosis. Special discussion: I discussed with the patient/guardian in detail that at this point there is no indication for admission to the hospital. It is understood, however, that if the symptoms persist or worsen the patient needs to return immediately for re-evaluation. 06/19 05:46 Order name: Basic Metabolic Panel; Complete Time: 07:03 tw4 06/19 05:46 Order name: CBC with Diff; Complete Time: 07:03 tw4 06/19 05:46 Order name: Hepatic Function; Complete Time: 07: tw4 06/19 05:46 Order name: Lipase; Complete Time: 07:03 tw4 06/19 06:01 Order name: Urine Microscopic Only; Complete Time: 07:03 ea 06/19 05:46 Order name: Urine Dipstick-Ancillary (obtain specimen); Complete Time: 05:51 06/19 05:46 Order name: IV Saline Lock; Complete Time: 05:51 tw4 06/19 05:46 Order name: Labs collected and sent; Complete Time: 05:51 06/19 05:50 Order name: Straight Cath - Urine; Complete Time: 05:50 ea 06/19 06:25 Order name: Urine Culture EDMS Administered Medications: 06:00 Drug: NS 0.9% 500 ml Route: IV; Rate: bolus; Site: right antecubital; ea 07:00 Follow up: Response: No adverse reaction; IV Status: Completed infusion; IV Intake: jl7 500ml 07:15 Drug: Rocephin 1 grams Route: IV; Rate: calculated rate; Site: right forearm; jl7 07:18 Follow up: Response: No adverse reaction; IV Status: Completed infusion jl7 07:32 Not Given (wrong pharmacy order): Rocephin - (cefTRIAXone) 1 grams IVPB once over 30 jl7 mins; (mix in 50 mL NS) Disposition: 06/19/20 07:05 Discharged to Home. Impression: Cystitis, Hematuria, Urinary tract infection, site not specified. - Condition is Stable. - Discharge Instructions: Constipation, Adult, Dysuria, Urinary Tract Infection, Adult, Urodynamic Testing. - Prescriptions for Pyridium 200 mg Oral Tablet - take 1 tablet by ORAL route every 8 hours for 3 days; 9 tablet. Macrobid 100 mg Oral Capsule - take 1 capsule by ORAL route every 12 hours for 10 days; 20 capsule. Miralax 17 gram/dose Oral - take 1 packet by ORAL route once daily dilute powder in 8 ounces of water or juice; 1 packet. - Medication Reconciliation Form, Thank You Letter, Antibiotic Education, Prescription Opioid Use form. - Follow up: Private Physician; When: Upon discharge from the Emergency Department; Reason: Recheck today's complaints, Continuance of care, Re-evaluation by your physician. - Problem is new. - Symptoms have improved. Signatures: Dispatcher [employer] EDMS Evan Ravi RN RN jl7 Anna Antunez RN RN Miah Huitron MD MD tw4 Corrections: (The following items were deleted from the chart) 06:03 05:52 URINALYSIS+U.LAB.BRZ ordered. [facility] EDMS 07:53 07:05 06/19/2020 07:05 Discharged to Home. Impression: Cystitis; Hematuria; Urinary jl7 tract infection, site not specified. Condition is Stable. Forms are Medication Reconciliation Form, Thank You Letter, Antibiotic Education, Prescription Opioid Use. Follow up: Private Physician; When: Upon discharge from the Emergency Department; Reason: Recheck today's complaints, Continuance of care, Re-evaluation by your physician. Problem is new. Symptoms have improved. tw4
[2020-06-19] MEDS ORDERED: CEFTRIAXONE/SWI 1gm 1 GM/10 ML SYR ONE (07:24)
[2020-06-23 14:09] VITALS: BP 145/60; O2SAT 100
== END 2020-06-19 07:53 | disposition home or self-care (01) ==
LOC: ER 05:19
DX: N30.91 Cystitis, unspecified with hematuria (principal); I10 Essential (primary) hypertension; E11.9 Type 2 diabetes mellitus without complications; Z79.82 Long term (current) use of aspirin; Z88.2 Allergy status to sulfonamides; Z95.1 Presence of aortocoronary bypass graft
CPT/HCPCS: 96361; 87088; 85025; 87086; 80048; 36415; 80076; 87077; 87186; 81015; 83690; 51702; 96374; 99284; J0696; J7040

== ENCOUNTER 2020-07-10 09:53 | Inpatient (IN) | payer OTHER ==
--- OUTSIDE RECORDS SUMMARY | 2020-07-10 09:55 | XMS REPORT | Continuity of Care Document ---
:1945 Author Organization [facility] t Address [address] [place] [place] [address] Care Team Providers Name Role Phone Carmela [...] Clinicians Facility Department ID 2020-04-14 Outpatient SYSTEM, [facility] [id number] 10:40:33 PROVIDER Alexandro welch 2020-04-30 2020-04-30 Orders Doctor PEDRO [id number] 00:00:00 00:00:00 Only UnassDAHIANA yuan [id number] [facility] [id number] 2020-04-16 2020-04-16 Letter Padmaja Mcintyre [id number] 00:00:00 00:00:00 (Out) Jeyson Rivera [id number] [facility] [id number] 2020-04-16 2020-04-16 Orders Doctor WILLIS [id number] 00:00:00 00:00:00 Only Unassigned, DAHIANA [id number] [facility] [id number] 2020-04-13 2020-04-13 Telephone EVELYN Mcintyre [id number] 00:00:00 00:00:00 JeysonBravofly [id number] [facility] [id number] 2020-04-09 2020-04-09 Transition Irineo Gaonarebekah [id number] 00:00:00 00:00:00 of Care Matt Holland [id number] [place] [id number] 2020-04-09 2020-04-09 Telephone EVELYN Mcintyre [id number] 00:00:00 00:00:00 JeysonBravofly [id number] [facility] [id number] Results This patient has no known results.
[2020-07-10 10:31] LABS: Basophils % 0.6 % (0-1.3); Hematocrit 34.4 % (36.0-45.0); Lymphocytes % 8.1 % (15.3-44.8); MPV 8.6 fL (7.6-11.3); RBC Red Blood Cell Count 3.85 M/uL (3.86-4.86)
[2020-07-10] MEDS ORDERED: ASPIRIN 81 MG CHEWABLE TABLET ONE (10:37)
[2020-07-10] MEDS ORDERED: ONDANSETRON 4 MG/2 ML VIAL ONE (10:38)
[2020-07-10] MEDS ORDERED: MORPHINE 4 MG/ML SYR ONE (10:40)
[2020-07-10] MEDS ORDERED: CLOPIDOGREL 75 MG TABLET ONE (11:09)
[2020-07-10] MEDS ORDERED: HEPARIN 5000 UNIT/ML 1 ML VIAL ONE ×2 (11:10→21:38)
[2020-07-10] MEDS ORDERED: HEPARIN/D5W 25,000 UNIT/500 ML BAG IV ONE (11:10)
[2020-07-10 11:13] LABS: Protime INR 1.08
--- NOTE | 2020-07-10 11:22 | EDPHYS ---
Physician Documentation [facility] Name: Meena Gandhi Age: 75 yrs Sex: Female : 1945 Arrival Date: 07/10/2020 Time: 10:02 Bed 3 Private MD: ED Physician Steven Arceo HPI: 07/10 10:09 This 75 yrs old Female presents to ER via EMS with complaints of Chest Pain > pm1 31 y/o. 10:09 The patient or guardian reports chest pain that is located primarily in the mid-sternal pm1 area. Onset: this morning, at 04:00. The pain radiates to back. Associated signs and symptoms: Pertinent positives: SOB with exertion, constipation last BM 3-4 days ago, Pertinent negatives: abdominal pain, cough. 10:09 The chest pain is described as a pressure, sharp. Duration: The patient or guardian pm1 reports a single episode, that is still ongoing. Modifying factors: The symptoms are alleviated by nothing. the symptoms are aggravated by nothing. Severity of pain: in the emergency department the pain has improved is a 10 / 10. EMS care prior to arrival includes: None. The patient has not recently seen a physician, Patient recently taken off eliquis about 2 months ago due to tachycardia side effect. Patient was then started on aspirin. Patient's reports home medications are metoprolol and aspirin only. Patient with double bypass in 1996. 10:09 Right lower leg swelling for the past 3-4 weeks. Nonpainful. History of DVT. pm1 Historical: - Allergies: 10:06 Sulfa (Sulfonamide Antibiotics); em 13:55 Iodine; em - Home Meds: 10:06 Metoprolol Tartrate Oral [Active]; Aspirin Oral [Active]; em - PMHx: 10:06 Diabetes - NIDDM; Hypertension; Myocardial infarction; DVT; em - PSHx: 10:06 CABG; em - Immunization history:: Adult Immunizations up to date. - Social history:: Smoking status: Patient denies any tobacco usage or history of. ROS: 10:09 Constitutional: Negative for fever, chills, and weight loss. pm1 10:09 Cardiovascular: Positive for chest pain, edema to right lower extremity, Negative for edema, palpitations. 10:09 Back: Negative for injury and pain. pm1 10:09 MS/Extremity: Negative for injury and deformity, Skin: Negative for injury, rash, and discoloration, Neuro: Negative for headache, weakness, numbness, tingling, and seizure. 10:09 Respiratory: Positive for shortness of breath, on exertion. Negative for cough. 10:09 Abdomen/GI: Positive for constipation, Negative for abdominal pain, nausea, vomiting, and diarrhea. Exam: 10:09 Constitutional: This is a well developed, well nourished patient who is awake, alert, pm1 and in no acute distress. Head/Face: Normocephalic, atraumatic. Chest/axilla: Normal chest wall appearance and motion. Nontender with no deformity. No lesions are appreciated. 10:09 Respiratory: Lungs have equal breath sounds bilaterally, clear to auscultation and percussion. No rales, rhonchi or wheezes noted. No increased work of breathing, no retractions or nasal flaring. 10:09 Back: No spinal tenderness. No costovertebral tenderness. Full range of motion. Skin: Warm, dry with normal turgor. Normal color with no rashes, no lesions, and no evidence of cellulitis. 10:09 Cardiovascular: Exam negative for acute changes, Rate: normal, Rhythm: regular, Pulses: no pulse deficits are appreciated, Heart sounds: murmur, not appreciated. 10:09 Abdomen/GI: Inspection: abdomen appears normal, Palpation: abdomen is soft and non-tender, in all quadrants. 10:09 Musculoskeletal/extremity: ROM: intact in all extremities, DVT Exam: swelling, of the left leg. Vital Signs: 10:03 BP 190 / 72; Pulse 70; Resp 18; Temp 98.8; Pulse Ox 99% on R/A; Pain 10/10; em 10:50 Weight 44.4 kg (M); ss 10:51 BP 178 / 68; Pulse 52; Resp 18; Pulse Ox 99% on R/A; em 11:54 BP 167 / 74; Pulse 51; Resp 18; Pulse Ox 98% on R/A; em 12:57 BP 176 / 62; Pulse 55; Resp 14; Pulse Ox 100% on R/A; Pain 0/10; em 13:49 BP 182 / 81; Pulse 80; Resp 18; Pulse Ox 100% on R/A; em 14:30 BP 184 / 77; Pulse 59; Resp 20; Pulse Ox 100% on R/A; em 15:30 BP 172 / 87; Pulse 65; Resp 18; Pulse Ox 98% on 2 lpm NC; em 16:23 BP 155 / 71; Pulse 58; Resp 16; Pulse Ox 99% on R/A; Pain 0/10; em 17:30 BP 170 / 80; Pulse 57; Resp 21; Pulse Ox 100% ; sv 18:30 BP 179 / 62; Pulse 65; Resp 19; Pulse Ox 100% ; sv MDM: 10:05 Patient medically screened. pm1 10:44 ED course: Chest pain currently 0-07/18. pm1 11:05 Physician consultation: Jordan Tovar MD was called at 11:01, was contacted at 11:05, pm1 regarding admission, patient's condition, would like admission per Dr. Juan Alberto Tovar plans to cath on Sunday. Continue metoprolol, heparin. 11:20 Data reviewed: vital signs. pm1 12:14 Refusal of service: The patient/guardian displays adequate decision making capability pm1 and despite a detailed discussion of alternatives, benefits, risks, and consequences refuses: CT Scan, patient reports that prior CT scan with IV contrast caused her to have heart attack like symptoms. 13:05 Physician consultation: Juan Alberto Murray regarding admission, patient's condition, in the pm1 emergency department to see patient at 13:05. 14:28 Physician consultation: Jordan Tovar MD in the emergency department to see patient at pm1 14:29, wants heparin continued versus lovenox. 07/10 10:05 Order name: Basic Metabolic Panel pm1 07/10 10:05 Order name: CBC with Diff; Complete Time: 10:47 pm1 07/10 10:05 Order name: LFT's; Complete Time: 11:44 pm1 07/10 10:05 Order name: Magnesium; Complete Time: 11:44 pm1 07/10 10:05 Order name: NT PRO-BNP; Complete Time: 11:44 pm1 07/10 10:05 Order name: PT-INR; Complete Time: 11:44 pm1 07/10 10:05 Order name: Troponin (emerg Dept Use Only); Complete Time: 11:44 pm1 07/10 10:06 Order name: Basic Metabolic Panel; Complete Time: 11:44 EDMS 07/10 13:57 Order name: COVID-19 em 07/10 14:55 Order name: CORONAVIRUS EDMS 07/10 15:41 Order name: Chem 7 pritesh 07/10 15:44 Order name: Phosphorus pritesh 07/10 17:29 Order name: SARS-COV-2 RT PCR; Complete Time: 17:38 EDMS 07/10 17:40 Order name: Basic Metabolic Panel; Complete Time: 17:41 EDMS 07/10 10:05 Order name: XRAY Chest (1 view); Complete Time: 13:48 pm1 07/10 10:07 Order name: Extremity Venous Uni Ltd US; Complete Time: 13:05 pm1 07/10 17:40 Order name: Phosphorus; Complete Time: 17:41 EDMS 07/10 17:57 Order name: Troponin I; Complete Time: 18:09 EDMS 07/10 17:57 Order name: Lipid Profile; Complete Time: 18:09 EDMS 07/10 20:04 Order name: PTT, Activated Partial Thromb; Complete Time: 20:19 EDMS 07/10 20:04 Order name: CBC with Automated Diff EDMS 07/10 10:05 Order name: EKG; Complete Time: 10:06 pm1 07/10 10:05 Order name: Cardiac monitoring; Complete Time: 10:22 pm1 07/10 10:05 Order name: EKG - Nurse/Tech; Complete Time: 10:22 pm07/10 10:05 Order name: IV Saline Lock; Complete Time: 10:22 pm1 07/10 10:05 Order name: Labs collected and sent; Complete Time: 10:22 pm1 07/10 10:05 Order name: O2 Per Protocol; Complete Time: 10:49 pm07/10 10:05 Order name: O2 Sat Monitoring; Complete Time: 10:49 pm1 07/10 10:44 Order name: EKG; Complete Time: 10:45 pm1 07/10 10:44 Order name: EKG - Nurse/Tech; Complete Time: 10:58 pm1 Administered Medications: 10:28 Drug: Aspirin Chewable Tablet 324 mg Route: PO; em 11:40 Follow up: Response: No adverse reaction em 10:30 Drug: Zofran (Ondansetron) 4 mg Route: IVP; Site: right antecubital; em 11:00 Follow up: Response: No adverse reaction em 11:05 Drug: Heparin (GA-Bolus No thrombolytic) - HEParin 60 units/kg {Co-Signature: ss em (Cony Renteria RN).} Route: IVP; Site: left forearm; 12:57 Follow up: Response: No adverse reaction em 11:06 Drug: Heparin (GA Drip) 12 units/kg/hr - (HEParin 11954 units, D5W 500 ml) em {Co-Signature: ss (Cony Renteria RN).} Route: IV; Rate: calculated rate; Site: left forearm; 11:08 Drug: PlaVIX 300 mg Route: PO; em 11:41 Follow up: Response: No adverse reaction em 12:56 Drug: Potassium Chloride 20 mEq Route: IV; Rate: calculated rate; Site: left forearm; em 12:56 Drug: Potassium Effervescent Tablet 50 mEq Route: PO; em 13:54 Follow up: Response: No adverse reaction em 14:37 Drug: Pepcid 20 mg Route: IVP; Site: left forearm; em 14:55 Follow up: Response: No adverse reaction em 14:38 Not Given (Physician Discretion): Metoprolol 5 mg IVP once; Hold for SBP <100 or HR <60.em 16:16 Drug: Lopressor 12.5 mg Route: PO; em 16:16 Drug: Potassium Effervescent Tablet 50 mEq Route: PO; em 17:48 Follow up: Response: No adverse reaction em 19:11 Not Given (Other Intervention Used): morphine 4 mg IVP once; RASS on ADMIN: Combtv4, em Very Agttd3, Agttd2, Rstlss1, AlertClm0, Drwsy-1, Lt Sdtn-2, Mod Sdtn-3, Dp Sdtn-4, UnArsble-5 Disposition: 07/11 07:30 Co-signature as Attending Physician, Steven Arceo MD I agree with the assessment and pritesh plan of care. Disposition: 07/10/20 11:21 Hospitalization ordered by Juan Alberto Murray for Inpatient Admission. Preliminary diagnosis are Non-ST elevation (NSTEMI) myocardial infarction, Hypokalemia. - Bed requested for [facility] ER HOLD. - Status is Inpatient Admission. lp1 - Condition is Stable. - Problem is new. - Symptoms have improved. Signatures: Dispatcher [employer] [facility] Steven Arceo MD MD cha Munoz, Edgar, RN JOELLE Cony Renteria RN RN ss Shanti Wall, JOELLE RN lp1 Imtiaz Little, [employer] pm1 Cony Renteria RN ss Corrections: (The following items were deleted from the chart) 07/10 10:17 10:08 Chest For PE Angio+CT.RAD.BRZ ordered. [facility] EDNJ 12:29 11:21 Hospitalization Ordered by Juan Alberto Murray for Inpatient Admission. Preliminary pm1 diagnosis is Chest pain, unspecified. Bed requested for Intensive Care Unit. Status is Inpatient Admission. Condition is Stable. Problem is new. Symptoms have improved. pm1 13:05 10:12 Angio Aorta For Dissection+CT.RAD.BRZ ordered. [facility] 14:41 12:29 07/10/2020 11:21 Hospitalization Ordered by Juan Alberto Murray for Inpatient pm1 Admission. Preliminary diagnosis is Chest pain, unspecified; Hypokalemia. Bed requested for Intensive Care Unit. Status is Inpatient Admission. Condition is Stable. Problem is new. Symptoms have improved. pm1 16:57 14:41 07/10/2020 11:21 Hospitalization Ordered by Juan Alberto Murray for Inpatient ss Admission. Preliminary diagnosis is Non-ST elevation (NSTEMI) myocardial infarction; Hypokalemia. Bed requested for Intensive Care Unit. Status is Inpatient Admission. Condition is Stable. Problem is new. Symptoms have improved. pm1 20:20 16:57 07/10/2020 11:21 Hospitalization Ordered by Juan Alberto Murray for Inpatient lp1 Admission. Preliminary diagnosis is Non-ST elevation (NSTEMI) myocardial infarctionHypokalemia. Bed requested for [facility] ER HOLD. Status is Inpatient Admission. Condition is Stable. Problem is new. Symptoms have improved. 20:22 10:09 Cardiovascular: Positive for chest pain, Negative for edema, palpitations, pm1 pm1
--- NOTE | 2020-07-10 11:22 | ER ---
Nurse's Notes [facility] Name: Meena Gandhi Age: 75 yrs Sex: Female : 1945 Arrival Date: 07/10/2020 Time: 10:02 Bed 3 Private MD: Diagnosis: Hypokalemia;Non-ST elevation (NSTEMI) myocardial infarction Presentation: 07/10 10:03 Chief complaint: EMS states: called out for chest pain since 0500 this morning, pt em reports shortness of breath on exertion, also reports hx of blood clots in legs, used to take eliquis but made heart rate go up. Coronavirus screen: Client denies travel out of the [place] in the last 14 days. Ebola Screen: Patient negative for fever greater than or equal to 101.5 degrees Fahrenheit, and additional compatible Ebola Virus Disease symptoms Patient denies exposure to infectious person. Patient denies travel to an Ebola-affected area in the 21 days before illness onset. No symptoms or risks identified at this time. Initial Sepsis Screen: Does the patient meet any 2 criteria? No. Patient's initial sepsis screen is negative. Does the patient have a suspected source of infection? No. Patient's initial sepsis screen is negative. Risk Assessment: Do you want to hurt yourself or someone else? Patient reports no desire to harm self or others. Onset of symptoms was July 10, 2020. 10:03 Method Of Arrival: EMS: [facility] em 10:03 Acuity: MIGUELITO 3 em Historical: - Allergies: 10:06 Sulfa (Sulfonamide Antibiotics); em 13:55 Iodine; em - Home Meds: 10:06 Metoprolol Tartrate Oral [Active]; Aspirin Oral [Active]; em - PMHx: 10:06 Diabetes - NIDDM; Hypertension; Myocardial infarction; DVT; em - PSHx: 10:06 CABG; em - Immunization history:: Adult Immunizations up to date. - Social history:: Smoking status: Patient denies any tobacco usage or history of. Screenin:03 Abuse screen: Denies threats or abuse. Nutritional screening: No deficits noted. em Tuberculosis screening: No symptoms or risk factors identified. Fall Risk None identified. Assessment: 10:03 General: Appears in no apparent distress. uncomfortable, Behavior is calm, cooperative, em appropriate for age. Pain: Complains of pain in chest Pain does not radiate. Pain began 0500. Neuro: Level of Consciousness is awake, alert, obeys commands, Oriented to person, place, time, situation, Appropriate for age. Cardiovascular: Capillary refill < 3 seconds Patient's skin is warm and dry. Respiratory: Reports shortness of breath Airway is patent Respiratory effort is even, unlabored, Respiratory pattern is regular, symmetrical. Derm: Skin is intact, is healthy with good turgor, Skin is pink, warm \T\ dry. Musculoskeletal: Capillary refill < 3 seconds, Range of motion: intact in all extremities. 11:00 Reassessment: Patient appears in no apparent distress at this time. Patient and/or em family updated on plan of care and expected duration. Pain level reassessed. Patient is alert, oriented x 3, equal unlabored respirations, skin warm/dry/pink. 12:00 Reassessment: Patient appears in no apparent distress at this time. Patient and/or em family updated on plan of care and expected duration. Pain level reassessed. Patient is alert, oriented x 3, equal unlabored respirations, skin warm/dry/pink. Patient denies pain at this time. 12:57 Reassessment: Dr. Murray at bedside. em 13:50 Reassessment: Patient appears in no apparent distress at this time. Patient and/or em family updated on plan of care and expected duration. Pain level reassessed. Patient is alert, oriented x 3, equal unlabored respirations, skin warm/dry/pink. 14:35 Reassessment: Dr. Tony at bedside, received VO for 12.5 mg PO Metoprolol BID. em 15:30 Reassessment: Patient appears in no apparent distress at this time. Patient and/or em family updated on plan of care and expected duration. Pain level reassessed. Patient is alert, oriented x 3, equal unlabored respirations, skin warm/dry/pink. 16:30 Reassessment: Patient appears in no apparent distress at this time. Patient and/or em family updated on plan of care and expected duration. Pain level reassessed. Patient is alert, oriented x 3, equal unlabored respirations, skin warm/dry/pink. Vital Signs: 10:03 BP 190 / 72; Pulse 70; Resp 18; Temp 98.8; Pulse Ox 99% on R/A; Pain 10/10; em 10:50 Weight 44.4 kg (M); ss 10:51 BP 178 / 68; Pulse 52; Resp 18; Pulse Ox 99% on R/A; em 11:54 BP 167 / 74; Pulse 51; Resp 18; Pulse Ox 98% on R/A; em 12:57 BP 176 / 62; Pulse 55; Resp 14; Pulse Ox 100% on R/A; Pain 0/10; em 13:49 BP 182 / 81; Pulse 80; Resp 18; Pulse Ox 100% on R/A; em 14:30 BP 184 / 77; Pulse 59; Resp 20; Pulse Ox 100% on R/A; em 15:30 BP 172 / 87; Pulse 65; Resp 18; Pulse Ox 98% on 2 lpm NC; em 16:23 BP 155 / 71; Pulse 58; Resp 16; Pulse Ox 99% on R/A; Pain 0/10; em 17:30 BP 170 / 80; Pulse 57; Resp 21; Pulse Ox 100% ; sv 18:30 BP 179 / 62; Pulse 65; Resp 19; Pulse Ox 100% ; sv ED Course: 10:02 Patient arrived in ED. em 10:03 Patient maintains SpO2 saturation greater than 95% on room air. em 10:04 Triage completed. em 10:05 Imtiaz Little NP is PHCP. pm1 10:05 Steven Arceo MD is Attending Physician. pm1 10:06 Arm band placed on. em 10:07 Tomasz Baires, RN is Primary Nurse. em 10:20 Initial lab(s) drawn, by nh, by EMS personnel. Inserted saline lock: 22 gauge in right mh5 antecubital area, using aseptic technique. Blood collected. 10:21 Patient has correct armband on for positive identification. Placed in gown. Bed in low mh5 position. Call light in reach. Side rails up X2. Warm blanket given. conveyor monitor on. Pulse ox on. NIBP on. 10:21 EKG done, by ED staff, reviewed by Imtiaz Little NP. 5 10:22 Basic Metabolic Panel Sent. 5 10:22 CBC with Diff Sent. 5 10:23 LFT's Sent. 5 10:23 Magnesium Sent. 5 10:23 NT PRO-BNP Sent. mh5 10:23 PT-INR Sent. mh5 10:23 Troponin (emerg Dept Use Only) Sent. mh5 10:46 XRAY Chest (1 view) In Process Unspecified. EDMS 10:49 Inserted saline lock: 22 gauge in left forearm, using aseptic technique. Blood ss collected. 11:21 Juan Alberto Murray is Hospitalizing Provider. pm1 12:41 Extremity Venous Uni Ltd US In Process Unspecified. EDMS 14:13 COVID-19 Sent. mh5 14:14 COVID swab sent to lab. mh5 15:30 No provider procedures requiring assistance completed. Patient admitted, IV remains in em place. Administered Medications: 10:28 Drug: Aspirin Chewable Tablet 324 mg Route: PO; em 11:40 Follow up: Response: No adverse reaction em 10:30 Drug: Zofran (Ondansetron) 4 mg Route: IVP; Site: right antecubital; em 11:00 Follow up: Response: No adverse reaction em 11:05 Drug: Heparin (UT-Bolus No thrombolytic) - HEParin 60 units/kg {Co-Signature: ss em (Cony Renteria RN).} Route: IVP; Site: left forearm; 12:57 Follow up: Response: No adverse reaction em 11:06 Drug: Heparin (UT Drip) 12 units/kg/hr - (HEParin 72066 units, D5W 500 ml) em {Co-Signature: ss (Cony Renteria RN).} Route: IV; Rate: calculated rate; Site: left forearm; 11:08 Drug: PlaVIX 300 mg Route: PO; em 11:41 Follow up: Response: No adverse reaction em 12:56 Drug: Potassium Chloride 20 mEq Route: IV; Rate: calculated rate; Site: left forearm; em 12:56 Drug: Potassium Effervescent Tablet 50 mEq Route: PO; em 13:54 Follow up: Response: No adverse reaction em 14:37 Drug: Pepcid 20 mg Route: IVP; Site: left forearm; em 14:55 Follow up: Response: No adverse reaction em 14:38 Not Given (Physician Discretion): Metoprolol 5 mg IVP once; Hold for SBP <100 or HR <60.em 16:16 Drug: Lopressor 12.5 mg Route: PO; em 16:16 Drug: Potassium Effervescent Tablet 50 mEq Route: PO; em 17:48 Follow up: Response: No adverse reaction em 19:11 Not Given (Other Intervention Used): morphine 4 mg IVP once; RASS on ADMIN: Combtv4, em Very Agttd3, Agttd2, Rstlss1, AlertClm0, Drwsy-1, Lt Sdtn-2, Mod Sdtn-3, Dp Sdtn-4, UnArsble-5 Outcome: 11:21 Decision to Hospitalize by Provider. pm1 15:30 Admitted to ER Hold. Please see [facility] for further documentation. em 15:30 Condition: improved 15:30 Instructed on the need for admit, Demonstrated understanding of instructions. 20:20 Patient left the ED. lp1 Signatures: Dispatcher [employer] Juanita Brooks, JOELLE LAI Tomasz Baires RN RN em Smirch, Shelby, RN RN ss Pena, Laura, RN RN lp1 Imtiaz Little, SCREEDMAN/LABORER SCREEDMAN/LABORER pm1 Natividad [facility] Cony Renteria RN
[2020-07-10 11:36] LABS: ALT/SGPT 12 U/L (12-78); AST/SGOT 24 U/L (15-37); Albumin 2.7 g/dL (3.4-5.0); Alkaline Phosphatase 43 U/L (45-117); BUN Blood Urea Nitrogen 21 mg/dL (7-18); Bicarbonate 36 mmol/L (21-32); Bilirubin Direct < 0.1 mg/dL (0-0.2); Bilirubin Total 0.4 mg/dL (0.2-1.0); Glucose Level 104 mg/dL (74-106); Magnesium 2.3 mg/dL (1.8-2.4); NT PRO-BNP 10588 pg/mL (<125); Protein, Total 6.8 g/dL (6.4-8.2); Sodium Level 147 mmol/L (136-145); Troponin (Emerg Dept Use Only) 0.08 ng/mL (0.0-0.045)
[2020-07-10 11:40] LABS: Potassium 2.8 mmol/L (3.5-5.1)
--- NOTE | 2020-07-10 12:52 | RAD REPORT ---
EXAM DESCRIPTION: USExtremity Venous Uni Ltd07/10/2020 12:41 pm CLINICAL HISTORY: Right leg swelling. COMPARISON: May 2020 FINDINGS: Right common femoral, superficial femoral, popliteal and right posterior tibial veins are compressible and demonstrate augmentation. Doppler demonstrates good flow. Right femoral vein thrombus has resolved IMPRESSION: No evidence of deep venous thrombosis involving the right lower extremity.
[2020-07-10] MEDS ORDERED: KCL 20 MEQ/100 mL IVPB 20 MEQ/100 ML BAG IV ONE (12:57)
[2020-07-10] MEDS ORDERED: POTASSIUM 25 MEQ EFFERV TAB ONE ×2 (12:57→16:06)
[2020-07-10] MEDS ORDERED: NA CHLORIDE 0.9% 500 ML ONE (13:17)
--- NOTE | 2020-07-10 13:34 | P.HP ---
Certification for Inpatient Patient admitted to: Inpatient With expected LOS: >2 Midnights Practitioner: I am a practitioner with admitting privileges, knowledge of patient current condition, hospital course, and medical plan of care. Services: Services provided to patient in accordance with Admission requirements found in Title 42 Section 412.3 of the Code of Federal Regulations Patient History Date of Service: 07/10/20 Reason for admission: Chest pain History of Present Illness: 75-year-old woman with a history of cervical cancer, history of DVT, history of coronary artery disease status post CABG presented to the emergency department with a complaint of chest pain. Patient reports experiencing intermittent chest pain of several months duration. Reports severe intermittent episodes of chest pain of onset last night. Chest pain worse with exertion and straining at bowel movement. Patient had been on Eliquis for DVT which per patient was discontinued because she was getting tachycardia from it. She is currently not taking any anticoagulation. Initial EKG done in the emergency department demonstrated ST depression in V4, V5 and lead II. She was given aspirin, loading dose of Plavix, IV morphine and started on heparin drip. Repeat EKG demonstrated sinus bradycardia with ST depression no longer present. She also has hypokalemia. Venous Doppler of the lower extremities was negative for DVT though her right leg is swollen compared to the left. Dr. Tovar-hebrew teacher was contacted by the ED provider who recommended hospitalization for full anticoagulation, aspirin, beta-aren and cardiac catheterization on Sunday. Patient is hospitalized for further management of unstable angina. 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 - Family History Mother -: Heart disease Brother -: Stroke - Social History Alcohol use: No CD- Drugs: No Caffeine use: No Review of Systems Other: Except as documented, all other systems reviewed and negative. Physical Examination - Physical Exam General: Alert, In no apparent distress, Oriented x3 HEENT: Mucous membr. moist/pink, EOMI, Sclerae nonicteric Neck: Supple, JVD not distended Respiratory: Clear to auscultation bilaterally, Normal air movement Cardiovascular: Edema (Right lower extremity), Irregular heart rate/rhythm, Abnormal S1 S2 (Split 2nd sound), Systolic murmur Gastrointestinal: Normal bowel sounds, Soft and benign, Non-distended, Other (Suprapubic tenderness) Musculoskeletal: No tenderness, Swelling (Right foot) Integumentary: No rashes, No erythema Neurological: Normal speech, Normal strength at 5/5 x4 extr, Cranial nerves 3-12 intact - Studies Laboratory Data (last 24 hrs) 07/10/20 10:47: PT 12.7 H, INR 1.08 07/10/20 10:47: Sodium 147 H, Potassium 2.8 L*, BUN 21 H, Creatinine 0.87, Glucose 104, Magnesium 2.3, Total Bilirubin 0.4, AST 24, ALT 12, Alkaline Phosphatase 43 L 07/10/20 10:18: WBC 12.4 H, Hgb 10.8 L, Hct 34.4 L, Plt Count 343 Assessment and Plan - Problems (Diagnosis) (1) Unstable angina Current Visit: Yes Status: Acute (2) NSTEMI (non-ST elevated myocardial infarction) Current Visit: Yes Status: Acute (3) History of coronary artery bypass graft Current Visit: Yes Status: Acute (4) History of DVT (deep vein thrombosis) Current Visit: Yes Status: Acute (5) Cervical cancer Current Visit: Yes Status: Acute (6) Hypertension Current Visit: No Status: Acute (7) Hypokalemia Current Visit: No Status: Acute - Plan Admit to the hospital. Will start Heparin drip per cardiology recommendation. Start aspirin, Plavix, metoprolol. NTG p.r.n. Obtain echocardiogram Cardiology consult. Dr. Tovar is planning cardiac catheterization. Trend troponin Obtain UA, COVID 19 test. Follow up with cervical cancer as an outpatient. Patient will need lifetime anticoagulation. Patient reports no intolerance to Eliquis. Trial of Xarelto on discharge. - Advance Directives Does patient have a Living Will: No Does patient have a Durable POA for Healthcare: No
--- NOTE | 2020-07-10 13:40 | RAD REPORT ---
EXAM DESCRIPTION: Jelly Single View07/10/2020 10:46 am CLINICAL HISTORY: Chest pain COMPARISON: March 2020 FINDINGS: The lungs appear clear of acute infiltrate. The heart is normal size. Postsurgical change s involve the chest IMPRESSION: No acute abnormalities displayed
[2020-07-10] MEDS ORDERED: METOPROLOL TARTRATE 5 MG/5 ML INJ IV ONE (14:44)
[2020-07-10] MEDS ORDERED: FAMOTIDINE 20 MG/2 ML VIAL IV ONE (14:44)
[2020-07-10] MEDS ORDERED: METOPROLOL TAR 25 MG TAB ONE ×2 (15:00→21:38)
[2020-07-10] MEDS ORDERED: NA CHLORIDE 0.9% 250 ML ONE (15:55)
[2020-07-10 17:28] LABS: Phosphorus 2.9 mg/dL (2.5-4.9); Potassium 4.5 mmol/L (3.5-5.1)
[2020-07-10 17:57] LABS: Troponin I 0.24 ng/mL (0.0-0.045)
[2020-07-10] MEDS ORDERED: HEPARIN/D5W 500 ML IV PRN (18:44)
[2020-07-10 19:57] LABS: Absolute Lymphocytes (CBC) 0.6 K/uL (0.7-4.9); Basophils % 0.5 % (0-1.3); Hematocrit 26.7 % (36.0-45.0); Lymphocytes % 3.6 % (15.3-44.8); MPV 8.2 fL (7.6-11.3); RBC Red Blood Cell Count 3.04 M/uL (3.86-4.86)
--- NOTE | 2020-07-10 20:02 | CON ---
Date of Consultation: 07/10/2020 History Of Present Illness: [id number] myocardial infarction. History Of Present Illness: Ms. Gandhi is a 75-year-old woman, has had a CABG in 1978. Does not dhillon ve a physician right now because of lack of insurance. She has a history of diabetes and hypertensio n; came in with substernal chest pain, going on intermittently for 2 weeks; ST depression. Troponin was positive at 0.08. Her BNP was 10,588. Her potassium was 2.8. Her white count was 12,000. EKG showed ST depression diffusely. Chest x-ray was negative. Venous Doppler was negative. Social History: Positive for pedal edema on the right side. Social History: Negative. Family History: Negative. Allergies: SHE IS ALLERGIC TO SULFUR AND MAYBE IODINE, SHE IS NOT SURE. Physical Examination: Vital Signs: Stable. She was afebrile. HEENT: Negative. Neck: Supple. No bruit, lymphadenopathy, JVD, or thyromegaly. Chest: Clear to auscultation and percussion. Cardiac: Regular rhythm and rate with S4 gallops and an aortic sclerosis murmur. No rubs. Abdomen: Benign. Extremities: No clubbing or cyanosis. She had trace edema in the right leg. Diagnostic Data: As stated earlier. Impression And Plan: The patient with coronary artery disease, status post coronary artery bypass gr aft in 1978, ST depression, positive troponin. We will plan a heart catheterization on Sunday omaradrián soumya. For now, I would keep her on heparin, Plavix, aspirin, and metoprolol. She may have iodine aller gy and I will pretreat her for that the night before the catheterization and the morning of and in g the procedure with prednisone and Solu-Medrol. Her diabetes is well controlled and her blood press ure is well controlled. She needs her potassium supplemented. Case was discussed with Dr. Trevor Arceo. NB/MODL Voice ID: [id number] Report ID: [id number]
[2020-07-10] MEDS ORDERED: ENOXAPARIN 100 MG/ML SYR SQ SCH (21:00)
[2020-07-10] MEDS ORDERED: METOPROLOL TAR 50 MG TAB PO SCH (21:00)
[2020-07-10 21:35] LABS: Blood Morphology Comment NOT SEEN (NOT SEEN); Platelet Estimate ADEQ; White Blood Cell Scan OK (OK)
[2020-07-10] MEDS ORDERED: HEPARIN/D5W 25,000 UNIT/500 ML BAG IV SCH (22:00)
[2020-07-10] MEDS: HEPARIN 5000 UNIT/ML 1 ML VIAL IV SCH (22:00)
[2020-07-10 23:42] VITALS: BMI 17.5
[2020-07-11 05:08] LABS: Absolute Lymphocytes (CBC) 1.1 K/uL (0.7-4.9); Basophils % 0.6 % (0-1.3); Hematocrit 27.1 % (36.0-45.0); Lymphocytes % 6.5 % (15.3-44.8); MPV 8.7 fL (7.6-11.3); RBC Red Blood Cell Count 3.05 M/uL (3.86-4.86)
[2020-07-11 05:29] LABS: Potassium 4.2 mmol/L (3.5-5.1)
[2020-07-11] MEDS: CLOPIDOGREL 75 MG TABLET PO SCH (08:01)
[2020-07-11] MEDS: METOPROLOL TAR 25 MG TAB PO SCH ×2 (08:05→21:45)
[2020-07-11] MEDS ORDERED: CLOPIDOGREL 75 MG TABLET ONE (08:06)
[2020-07-11] MEDS ORDERED: METOPROLOL TAR 25 MG TAB ONE ×2 (08:06→21:54)
[2020-07-11] MEDS: ASPIRIN EC 81 MG TAB PO SCH (08:25)
[2020-07-11] MEDS ORDERED: ASPIRIN EC 81 MG TAB PO ONE (08:39)
[2020-07-11] MEDS ORDERED: HEPARIN 5000 UNIT/ML 1 ML VIAL IV ONE (10:46)
[2020-07-11] MEDS ORDERED: MAGNESIUM CITRATE 300 ML BOT PO SCH (11:00)
[2020-07-11] MEDS ORDERED: HEPARIN 5000 UNIT/ML 1 ML VIAL ONE (11:06)
--- NOTE | 2020-07-11 14:03 | P.PN ---
Subjective Date of Service: 07/11/20 Chief Complaint: Chest pain Patient complaining of intermittent chest pain. She is also complaining of constipation. Troponin trended flat. Physical Examination - Vital Signs Temperature: 97.8 F Blood Pressure: 147/49 Pulse: 56 Respirations: 20 Pulse Ox (%): 98 - Physical Exam General: Alert, In no apparent distress Neck: JVD not distended Respiratory: Clear to auscultation bilaterally, Normal air movement Cardiovascular: No edema, Regular rate/rhythm, Normal S1 S2 Gastrointestinal: Normal bowel sounds, Soft and benign, Non-distended Musculoskeletal: No swelling Integumentary: No rashes Neurological: Other (No focal deficit.) Assessment And Plan - Current Problems (Diagnosis) (1) Unstable angina Current Visit: Yes Status: Acute (2) NSTEMI (non-ST elevated myocardial infarction) Current Visit: Yes Status: Acute (3) History of coronary artery bypass graft Current Visit: Yes Status: Acute (4) History of DVT (deep vein thrombosis) Current Visit: Yes Status: Acute (5) Cervical cancer Current Visit: Yes Status: Acute (6) Hypertension Current Visit: No Status: Acute (7) Hypokalemia Current Visit: No Status: Acute (8) UTI (urinary tract infection) Current Visit: Yes Status: Acute (9) Functional constipation Current Visit: Yes Status: Acute - Plan Continue Heparin drip per cardiology recommendation. On aspirin, Plavix,and metoprolol. NTG p.r.n. Echocardiogram requested Dr. Tovar is planning cardiac catheterization tomorrow. COVID 19 test is negative. Obtain UA given leukocytosis and start empiric antibiotics. Follow up with cervical cancer as an outpatient. Patient will need lifetime anticoagulation. Patient reports intolerance to Eliquis. Trial of Xarelto on discharge. Laxatives and stool softeners for chronic constipation.
--- NOTE | 2020-07-11 15:29 | EKG ---
Test Date: 2020-07-10 Test Time: 10:50:26 Cardiopulmonary Specialist: JUAN FRANCISCO MEASUREMENT RESULTS: Intervals: Rate: 51 [place]: 148 QRSD: 74 QT: 454 QTc: 418 [place]: P: 43 [place]: 148 QRS: -4 T: -59 INTERPRETIVE STATEMENTS: Sinus bradycardia ST & T wave abnormality, consider inferolateral ischemia Abnormal ECG Compared to ECG 07/10/2020 09:58:27 Possible ischemia now present Sinus rhythm no longer present ST (T wave) deviation still present Electronically Signed On 07-11-20 15:26:41 PRELIMINARY SCHOOL PSYCHOLOGIST by Jordan Tovar
--- NOTE | 2020-07-11 15:30 | EKG ---
Test Date: 2020-07-10 Test Time: 09:58:27 Marketing Instructor: JUAN FRANCISCO MEASUREMENT RESULTS: Intervals: Rate: 82 IA: 176 QRSD: 76 QT: 338 QTc: 394 [place]: P: 47 IA: 176 QRS: -23 T: 162 INTERPRETIVE STATEMENTS: Normal sinus rhythm Marked ST abnormality, possible inferior subendocardial injury Abnormal ECG Compared to ECG 04/05/2020 11:26:59 ST (T wave) deviation now present Electronically Signed On 07-11-20 15:26:44 ROD DRAWER by Jordan Tovar
[2020-07-11] MEDS: SENOSIDES 8.6 MG TAB PO SCH ×2 (21:00→21:42)
[2020-07-11] MEDS ORDERED: SENOSIDES 8.6 MG TAB ONE (21:14)
[2020-07-11] MEDS: HEPARIN 5000 UNIT/ML 1 ML VIAL IV SCH (22:00)
[2020-07-12] MEDS ORDERED: HEPARIN SOD 100 UNIT/ML FLUSH IV ONE (01:13)
[2020-07-12] MEDS ORDERED: HEPARIN 5000 UNIT/ML 1 ML VIAL IV ONE (02:00)
[2020-07-12 05:49] LABS: Absolute Lymphocytes (CBC) 1.3 K/uL (0.7-4.9); Basophils % 0.8 % (0-1.3); Hematocrit 25.5 % (36.0-45.0); Lymphocytes % 10.7 % (15.3-44.8); MPV 8.8 fL (7.6-11.3); RBC Red Blood Cell Count 2.89 M/uL (3.86-4.86)
[2020-07-12 06:02] LABS: Potassium 3.6 mmol/L (3.5-5.1)
[2020-07-12] MEDS ORDERED: HEPA 1000U/500MLS 1,000 UNIT/500 ML BAG IV ONE ×2 (07:08→07:11)
[2020-07-12] MEDS ORDERED: LIDOCAINE 1% MPF 30 ML VIAL ONE (07:08)
[2020-07-12] MEDS ORDERED: CLOPIDOGREL 75 MG TABLET ONE ×3 (07:15→12:36)
[2020-07-12] MEDS ORDERED: ASPIRIN EC 81 MG TAB PO ONE (07:15)
[2020-07-12] MEDS: ASPIRIN EC 81 MG TAB PO SCH (07:15)
[2020-07-12] MEDS: CLOPIDOGREL 75 MG TABLET PO SCH (07:15)
[2020-07-12] MEDS ORDERED: MIDAZOLAM HCL 2 MG/2 ML INJ ONE (07:50)
[2020-07-12] MEDS ORDERED: FENTANYL CITR 100 MCG/2 ML ONE (07:51)
[2020-07-12] MEDS ORDERED: NA CHLORIDE 0.9% 500 ML ONE (07:51)
[2020-07-12] MEDS ORDERED: NA CHLORIDE 0.9% 50 ML ONE (07:51)
[2020-07-12] MEDS ORDERED: ATROPINE SULF 1 MG/10 ML SYR IV ONE (07:51)
[2020-07-12] MEDS ORDERED: METHYLPREDNISOLONE 125 MG INJ ONE (08:00)
[2020-07-12] MEDS ORDERED: NITROGLYCERIN/D5W 25 MG/250 ML BTL IV ONE (08:22)
[2020-07-12] MEDS ORDERED: NITROGLYCERIN 100 MCG/ML SYR (for cath lab use only) IV ONE (08:22)
[2020-07-12] MEDS ORDERED: MORPHINE 4 MG/ML SYR ONE (08:35)
[2020-07-12] MEDS ORDERED: NITROGLYCERIN 0.4 MG/TAB SL ONE (08:37)
[2020-07-12] MEDS: SENOSIDES 8.6 MG TAB PO SCH ×3 (09:00→20:58)
[2020-07-12] MEDS: METOPROLOL TAR 25 MG TAB PO SCH ×2 (09:00→20:46)
--- NOTE | 2020-07-12 09:10 | OP ---
Date of Procedure: 07/12/2020 Surgeon: Jordan Tovar MD Instrument Lens Inspector: Tiana Calderon. The patient was admitted to Dr. Murray on 07/10/2020 with a non-STEMI. The patient was brought to [facility] employment associate today on 07/12/2020 for a heart catheterization. Indication: Non-STEMI. History Of Present Illness: Ms. Gandhi has had bypass surgery in 1996. Has a cardiac risk factors as well, possible allergy to iodine, normal creatinine, was brought to the labor employment associate today as an inpat ient, prepped and draped in the routine sterile fashion, given Versed and fentanyl for sedation. Usi ng the Seldinger technique, 10 cc of xylocaine were injected in the right common femoral artery area. A 6-Albanian sheath was used to cannulate the right common femoral artery. Angio-Seal was used to cl ose the case. Angiography there was normal. A JL4 catheter was used to inject the left main that owed about a 50% to 60% stenosis. There was 100% occlusion of the LAD. There was a 90% mid circ and a 70% proximal circ stenosis. The JR4 was used to cannulate the RCA, which was completely occluded. The RCA was then moved to cannulate the vein graft to the OM, which was completely occluded, the ve in graft to the RCA which was completely occluded, and a OAKLEY to the LAD that was widely patent. We proceeded to intervene with the RCA. We used an XB3.5 guide with side hole to cannulate the left андрей n. A [place] wire crossed the circumflex distally successfully. Initially, a 2.5 x 12 Emerge noncomp liant balloon was used to dilate the mid circ, proximal circ. This resulted in an excellent result i n the mid circ; however, the proximal circ was dissected with loss of the first OM. I decided to put a 2.5 x 16 Synergy stent in the proximal circumflex with excellent 0% residual. We are going to xiomara at the left main medically. The only complication was occlusion of the OM side branch with some ches t pain. The patient has received aspirin and Plavix today. I will give her some more Plavix when dawood is able to take p.o. She could not swallow anything while she was laying down. She did receive An giomax and aspirin. Blood Loss: 5 cc. Postoperative Diagnosis: Severe coronary artery disease, status post angioplasty of the mid circ, an gioplasty and stent of the proximal circ for proximal circ dissection. I would like to put her in th e ICU because of mild chest pain probably because of the loss of the obtuse marginal. We will give h er nitroglycerin drip and heparin drip. Continue her other regimen including aspirin, statin, beta-b lockers, and Plavix. Anesthesia: Total conscious sedation was 75 minutes. MARLENY/MODLaila Voice ID: [id number] Report ID: [id number]
--- NOTE | 2020-07-12 10:00 | PN ---
Date of Progress Note: 07/11/2020 Ms. Gandhi had a history of CABG in 1996, although she says she doubt, but nevertheless s he basically came in with non-ST elevation myocardial infarction. Her potassium was 2.8, was supplem ented. Her troponin actually increased since admission. She has diabetes. She has hypertension. H as not had any further chest pain since admission. Plan for a heart catheterization on 07/12/2020 to define her coronary anatomy. The patient understands the risks and the benefits of the procedure. She agreed to proceed. We will continue her present regimen for now. She has questionable allergy t o iodine. We will give her some Solu-Medrol in the electronic lab technician. MARLENY/MARISA Voice ID: [id number] Report ID: [id number]
[2020-07-12] MEDS ORDERED: MAGNESIUM CITRATE 300 ML BOT PO SCH ×2 (11:00→18:00)
[2020-07-12] MEDS ORDERED: CLOPIDOGREL 75 MG TABLET PO ONE (12:30)
[2020-07-12] MEDS ORDERED: HEPARIN/D5W 25,000 UNIT/500 ML BAG IV ONE (12:37)
--- NOTE | 2020-07-12 17:26 | P.PN ---
Subjective Date of Service: 07/12/20 Chief Complaint: Chest pain Status post cardiac catheterization today. Patient had her RCA stented. Physical Examination - Vital Signs Temperature: 97.4 F Blood Pressure: 158/73 Pulse: 59 Respirations: 18 Pulse Ox (%): 99 - Physical Exam General: Alert, In no apparent distress Neck: Supple, JVD not distended Respiratory: Clear to auscultation bilaterally, Normal air movement Cardiovascular: Regular rate/rhythm, Normal S1 S2 Gastrointestinal: Soft and benign, Non-distended, No tenderness Musculoskeletal: No swelling, No tenderness Integumentary: No rashes Neurological: Normal speech, Normal strength at 5/5 x4 extr Assessment And Plan - Current Problems (Diagnosis) (1) Unstable angina Current Visit: Yes Status: Acute (2) NSTEMI (non-ST elevated myocardial infarction) Current Visit: Yes Status: Acute (3) History of coronary artery bypass graft Current Visit: Yes Status: Acute (4) History of DVT (deep vein thrombosis) Current Visit: Yes Status: Acute (5) Cervical cancer Current Visit: Yes Status: Acute (6) Hypertension Current Visit: No Status: Acute (7) Hypokalemia Current Visit: No Status: Acute (8) Functional constipation Current Visit: Yes Status: Acute (9) Leukocytosis Current Visit: Yes Status: Acute - Plan Status post cardiac catheterization with stenting of RCA. Desizing Machine Offbearer recommend to continue heparin drip and added nitroglycerin drip On aspirin, Plavix,and metoprolol. COVID 19 test is negative. UA uncollected. Obtain UA given leukocytosis and history of cervical cancer. Follow up with cervical cancer as an outpatient. Patient will need lifetime anticoagulation for history of lower extremity DVTs Patient reports intolerance to Eliquis. Trial of Xarelto on discharge. Laxatives and stool softeners for chronic constipation.
[2020-07-12 18:16] LABS: Absolute Lymphocytes (CBC) 0.5 K/uL (0.7-4.9); Basophils % 0.1 % (0-1.3); Hematocrit 31.9 % (36.0-45.0); Lymphocytes % 3.5 % (15.3-44.8); MPV 8.6 fL (7.6-11.3)
[2020-07-12] MEDS ORDERED: METOPROLOL TAR 25 MG TAB ONE (21:01)
[2020-07-12 23:04] LABS: Urine Appearance CLOUDY; Urine Bilirubin NEGATIVE (NEG); Urine Blood 2+ (NEG); Urine Color YELLOW; Urine Glucose NEGATIVE (NEG); Urine Protein 1+ (NEG); Urine Specific Gravity >=1.030 (1.005-1.030); Urine Urobilinogen 0.2 mg/dL (0.2-1.0); Urine pH 7.5 (5.0-7.0)
[2020-07-12 23:40] LABS: Blood Morphology Comment NOT SEEN (NOT SEEN); Platelet Estimate ADEQ
[2020-07-13 00:08] LABS: Urine Bacteria >50 /HPF (<20); Urine RBC <5 /HPF (NONE SEEN); Urine Triple Phosphate Crystal FEW (NONE SEEN); Urine Urothelial Cells <5 /HPF (NONE SEEN)
[2020-07-13 03:05] LABS: Potassium 3.5 mmol/L (3.5-5.1)
[2020-07-13 03:09] LABS: MPV 8.9 fL (7.6-11.3)
[2020-07-13 03:10] LABS: Platelet Estimate ND
[2020-07-13] MEDS: MORPHINE 2 MG/ML SYR IV PRN (03:55)
[2020-07-13] MEDS: NITROGLYCERIN 0.4 MG/TAB SL PRN ×3 (03:55→23:35)
[2020-07-13] MEDS ORDERED: LORazepam 2 MG/ML VIAL IV ONE (04:00)
[2020-07-13] MEDS ORDERED: NITROGLYCERIN 0.4 MG/TAB SL ONE (04:09)
[2020-07-13] MEDS ORDERED: MORPHINE 2 MG/ML SYR ONE (04:10)
[2020-07-13] MEDS ORDERED: LORazepam 2 MG/ML VIAL ONE (04:20)
[2020-07-13 07:35] LABS: Absolute Lymphocytes (CBC) 1.4 K/uL (0.7-4.9); Basophils % 0.5 % (0-1.3); Hematocrit 25.3 % (36.0-45.0); RBC Red Blood Cell Count 2.84 M/uL (3.86-4.86)
[2020-07-13] MEDS: SENOSIDES 8.6 MG TAB PO SCH ×3 (09:00→20:07)
[2020-07-13] MEDS: ASPIRIN EC 81 MG TAB PO SCH (09:33)
[2020-07-13] MEDS: Levofloxacin 750mg IV 750 MG/150 ML BAG IV SCH (09:33)
[2020-07-13] MEDS: CLOPIDOGREL 75 MG TABLET PO SCH (09:33)
[2020-07-13] MEDS: METOPROLOL TAR 25 MG TAB PO SCH ×2 (09:33→20:07)
[2020-07-13] MEDS ORDERED: levoFLOXacin 750 MG TAB ONE (09:46)
[2020-07-13] MEDS ORDERED: Levofloxacin 750mg IV 750 MG/150 ML BAG IV ONE (09:47)
[2020-07-13] MEDS ORDERED: CLOPIDOGREL 75 MG TABLET ONE (09:47)
[2020-07-13] MEDS ORDERED: METOPROLOL TAR 25 MG TAB ONE (09:47)
[2020-07-13] MEDS ORDERED: ASPIRIN EC 81 MG TAB PO ONE (09:47)
--- NOTE | 2020-07-13 19:26 | P.PN ---
Subjective Date of Service: 07/13/20 Chief Complaint: Chest pain Subjective: Other (had chest pain overnight, feeling better, remains anxious. continues with urinary frequency/dysuria, constipation.) Review of Systems 10-point ROS is otherwise unremarkable Physical Examination - Vital Signs Temperature: 99.6 F Blood Pressure: 149/73 Pulse: 64 Respirations: 18 Pulse Ox (%): 100 - Physical Exam General: Alert, In no apparent distress, Oriented x3 HEENT: Sclerae nonicteric Respiratory: Clear to auscultation bilaterally Cardiovascular: No edema, Regular rate/rhythm Gastrointestinal: Soft and benign, No tenderness Musculoskeletal: No tenderness Integumentary: No rashes Assessment & Plan Physician Review Additional Text: UTI Unstable Angina NSTEMI s/p stent CAD s/p CABG h/o DVT h/o cervical cancer HTN functional constipation Leukocytosis worsening, likely due to UTI, UA positive, and +symptoms just finished macrobid for UTI, culture reviewed. will start on Levaquin for now f/u cultures s/p cardiac cath with RCA stenting continue aspirin / plavix, metoprolol pt reports h/o RLE DVT this past year, states she was ill and didn't get out of bed, was on eliquis but had side effects, was told to just continue aspirin/plavix Laxatives and stool softeners for chronic constipation. Dispo: anticipate dc home in ~48hrs, awaiting urine culture / sensitivities ok to transfer out of ICU Time Spent Managing Pts Care (In Minutes): 35
[2020-07-13] MEDS: ENSURE ENLIVE 237 ML CAN PO SCH (20:07)
[2020-07-13] MEDS: LORazepam 2 MG/ML VIAL IV PRN (22:19)
[2020-07-14] MEDS: LORazepam 2 MG/ML VIAL IV PRN ×3 (00:27→16:59)
[2020-07-14 05:39] LABS: MPV 8.5 fL (7.6-11.3)
[2020-07-14 05:51] LABS: Magnesium 1.9 mg/dL (1.8-2.4); Potassium 3.1 mmol/L (3.5-5.1)
[2020-07-14 06:04] LABS: Platelet Estimate ADEQ
[2020-07-14 06:28] LABS: Absolute Lymphocytes (CBC) 1.1 K/uL (0.7-4.9); Basophils % 0.2 % (0-1.3); Hematocrit 24.4 % (36.0-45.0); Lymphocytes % 7.7 % (15.3-44.8); MPV 8.7 fL (7.6-11.3); RBC Red Blood Cell Count 2.75 M/uL (3.86-4.86)
--- NOTE | 2020-07-14 06:33 | EKG ---
Test Date: 2020-07-13 Test Time: 04:06:10 Analytical Consultant: RT-O MEASUREMENT RESULTS: Intervals: Rate: 54 [place]: 138 QRSD: 70 QT: 466 QTc: 441 [place]: P: 49 KS: 138 QRS: 1 T: 240 INTERPRETIVE STATEMENTS: Sinus bradycardia ST & T wave abnormality, consider inferolateral ischemia Abnormal ECG Compared to ECG 07/10/2020 10:50:26 No significant changes Electronically Signed On 07-14-20 06:31:57 WELLNESS COACH by Jordan Tovar
[2020-07-14] MEDS: NITROGLYCERIN 0.4 MG/TAB SL PRN ×2 (07:23→19:47)
[2020-07-14] MEDS ORDERED: NA CHLORIDE 0.9% 250 ML IV SCH (08:00)
[2020-07-14] MEDS ORDERED: POTASSIUM CL SA 10 MEQ TAB PO ONE (08:00)
[2020-07-14] MEDS: CLOPIDOGREL 75 MG TABLET PO SCH (08:06)
[2020-07-14] MEDS: METOPROLOL TAR 25 MG TAB PO SCH ×2 (08:06→20:38)
[2020-07-14] MEDS: ASPIRIN EC 81 MG TAB PO SCH (08:06)
[2020-07-14] MEDS: DOCUSATE NA 100 MG CAP PO SCH ×2 (08:06→20:38)
[2020-07-14] MEDS: SENOSIDES 8.6 MG TAB PO SCH ×2 (08:07→20:38)
[2020-07-14] MEDS: ENSURE ENLIVE 237 ML CAN PO SCH ×2 (08:07→20:44)
--- NOTE | 2020-07-14 08:35 | ECHO ---
HEIGHT: 5 ft 2 in WEIGHT: 96 lb 0 oz DATE OF STUDY: 07/13/[address]: luciano araya 2-DIMENSIONAL: YES M.MODE: YES DOPPLER: YES COLOR FLOW: YES TDS: NO PORTABLE: NO DEFINITY: NO BUBBLE STUDY: NO DIAGNOSIS: NSTEMI CARDIAC HISTORY: CATHERIZATION: YES SURGERY: YES PROSTHETIC VALVE: NO PACEMAKER: NO MEASUREMENTS (cm) DIASTOLIC (NORMALS) SYSTOLIC (NORMALS) IVSd 0.9 (0.6-1.2) LA Diam 3.2 (1.9-4.0) LVEF 72% LVIDd 4.3 (3.5-5.7) LVIDs 2.5 (2.0-3.5) %FS 41% LVPWd 1.0 (0.6-1.2) Ao Diam 2.6 (2.0-3.7) 2 DIMENSIONAL ASSESSMENT: RIGHT ATRIUM: NORMAL LEFT ATRIUM: NORMAL RIGHT VENTRICLE: NORMAL LEFT VENTRICLE: NORMAL TRICUSPID VALVE: NORMAL MITRAL VALVE: NORMAL PULMONIC VALVE: NORMAL AORTIC VALVE: SCLEROSIS PERICARDIAL EFFUSION: NONE AORTIC ROOT: NORMAL LEFT VENTRICULAR WALL MOTION: NORMAL DOPPLER/COLOR FLOW: NORMAL COMMENTS: AORTIC SCLEROSIS WITH NO STENOSIS. NORMAL LEFT VENTRICULAR SIZE AND FUNCTION. NO WALL MOTION ABNORMALITY. TECHNOLOGIST: Yunior DEJESUS
[2020-07-14] MEDS ORDERED: METOPROLOL TAR 50 MG TAB PO SCH (09:00)
[2020-07-14 09:33] LABS: Ferritin 268.1 ng/mL (8-388); Thyroid Stimulating Hormone 1.17 uIU/mL (0.360-3.740)
[2020-07-14] MEDS: MORPHINE 2 MG/ML SYR IV PRN (12:51)
[2020-07-14] MEDS ORDERED: POTASSIUM 25 MEQ EFFERV TAB PO ONE (16:00)
--- NOTE | 2020-07-14 17:32 | EKG ---
Test Date: 2020-07-13 Test Time: 21:49:20 Safety Professional: YRNG MEASUREMENT RESULTS: Intervals: Rate: 69 [place]: 152 QRSD: 80 QT: 406 QTc: 435 [place]: P: 55 [place]: 152 QRS: -5 T: 122 INTERPRETIVE STATEMENTS: Normal sinus rhythm Nonspecific ST and T wave abnormality Abnormal ECG Compared to ECG 07/13/2020 04:06:10 Sinus bradycardia no longer present Possible ischemia no longer present ST (T wave) deviation still present Electronically Signed On 07-14-20 17:31:40 COMPENSATION AND BENEFITS MANAGER by Jordan Tovar
--- NOTE | 2020-07-14 18:21 | P.PN ---
Subjective Date of Service: 07/14/20 Chief Complaint: Chest pain Subjective: No new changes (occasionally having some chest pain, continues with some anxiety. hgb <8 this morning) Review of Systems 10-point ROS is otherwise unremarkable Physical Examination - Vital Signs Temperature: 98.1 F Blood Pressure: 125/66 Pulse: 69 Respirations: 18 Pulse Ox (%): 99 - Physical Exam General: Alert, In no apparent distress HEENT: Sclerae nonicteric Respiratory: Clear to auscultation bilaterally Cardiovascular: No edema, Regular rate/rhythm Gastrointestinal: Soft and benign, No tenderness Musculoskeletal: No tenderness Integumentary: No rashes Neurological: Normal speech, Normal affect Assessment & Plan Physician Review Additional Text: UTI Unstable Angina NSTEMI s/p stent CAD s/p CABG h/o DVT h/o cervical cancer HTN functional constipation acute on chronic anemia continues with leukocytosis, slightly better, did receive steroids during cath, also due to UTI was on macrobid for UTI, culture reviewed, started on levaquin, f/u urine culture this hospitalization s/p cardiac cath with RCA stenting - continue aspirin / plavix, metoprolol pt reports h/o RLE DVT this past year, states she was ill and didn't get out of bed, was on eliquis but had side effects, was told to just continue aspirin/plavix, does not want eliquis/xarelto, discussed risks/benefits Laxatives and stool softeners for chronic constipation. enema today for continued constipation no obvious bleeding. pt does report recent h/o byron blood in urine a few weeks ago. anemia labs more consistent with anemia of chronic disease. she does report previously taking iron Dispo: anticipate dc home tomorrow, awaiting urine sensitivities Time Spent Managing Pts Care (In Minutes): 35
[2020-07-15 00:26] LABS: Hematocrit 31.4 % (36.0-45.0)
[2020-07-15 06:15] LABS: Potassium 3.9 mmol/L (3.5-5.1)
[2020-07-15 06:19] LABS: Basophils % 0.2 % (0-1.3); Hematocrit 30.5 % (36.0-45.0); Lymphocytes % 5.6 % (15.3-44.8); MPV 8.5 fL (7.6-11.3); RBC Red Blood Cell Count 3.45 M/uL (3.86-4.86)
[2020-07-15] MEDS: Levofloxacin 750mg IV 750 MG/150 ML BAG IV SCH (06:40)
[2020-07-15] MEDS: METOPROLOL TAR 25 MG TAB PO SCH ×2 (08:49→21:05)
[2020-07-15] MEDS: SENOSIDES 8.6 MG TAB PO SCH ×2 (08:49→21:04)
[2020-07-15] MEDS: DOCUSATE NA 100 MG CAP PO SCH ×2 (08:50→21:04)
[2020-07-15] MEDS: ASPIRIN EC 81 MG TAB PO SCH (08:50)
[2020-07-15] MEDS: CLOPIDOGREL 75 MG TABLET PO SCH (08:50)
[2020-07-15] MEDS: ENSURE ENLIVE 237 ML CAN PO SCH ×2 (08:51→21:00)
[2020-07-15] MEDS ORDERED: POTASSIUM CL SA 10 MEQ TAB PO ONE (09:00)
[2020-07-15 10:27] LABS: White Blood Cell Scan OK (OK)
[2020-07-15 10:28] LABS: Anisocytosis 1+; Blood Morphology Comment NOTED (NOT SEEN); Platelet Estimate ADEQ
--- NOTE | 2020-07-15 17:50 | P.PN ---
Subjective Date of Service: 07/15/20 Chief Complaint: Chest pain Subjective: No new changes (overall feeling better, anxious to be dc'd home with continued chest pain. also reporting some "brown clumps" in urine since admission. slight dysuria persists but improved) Review of Systems 10-point ROS is otherwise unremarkable Physical Examination - Vital Signs Temperature: 98.9 F Blood Pressure: 135/65 Pulse: 60 Respirations: 17 Pulse Ox (%): 97 - Physical Exam General: Alert, In no apparent distress HEENT: Sclerae nonicteric Respiratory: Clear to auscultation bilaterally Cardiovascular: No edema, Regular rate/rhythm Gastrointestinal: Soft and benign, No tenderness Musculoskeletal: No tenderness Integumentary: No rashes Assessment & Plan Physician Review Additional Text: UTI Unstable Angina NSTEMI s/p stent CAD s/p CABG h/o DVT h/o cervical cancer HTN functional constipation acute on chronic anemia continues with leukocytosis, increased, partly due to steroids during cath procedure was on macrobid for UTI, culture reviewed - enterococcus, started on levaquin, Urine Cx: enteroccocus this hospitalization again given continued symptoms, will switch to Augmentin (penicillin sensitive) repeat UA, check procalcitonin s/p cardiac cath with RCA stenting - continue aspirin / plavix, metoprolol pt reports h/o RLE DVT this past year, states she was ill and didn't get out of bed, was on eliquis but had side effects and hematuria, was told to just continue aspirin/plavix, does not want eliquis/xarelto, discussed risks/benefits Laxatives and stool softeners for chronic constipation. no obvious bleeding. pt does report recent h/o byron blood in urine a few weeks ago. anemia labs more consistent with anemia of chronic disease. she does report previously taking iron Dispo: anticipate dc home tomorrow Time Spent Managing Pts Care (In Minutes): 35
--- NOTE | 2020-07-15 20:33 | PN ---
Date of Progress Note: 07/13/2020 Subjective: Ms. Gandhi had been admitted over the weekend with a non-ST elevation myocardial infarc tion. She was taken to the medical lab assistant on 07/13/2020, where a heart catheterization revealed a complete ly occluded vein graft to the OM, completely occluded vein graft to the RCA. She had a completely oc cluded sokaogon RCA. She had a 90% proximal stenosis on the circumflex. She had a OAKLEY to the LAD aleksey t was open. A stent was placed successfully in the proximal circumflex. The mid circumflex was dila camron with 0% residual. When we did place the stent, a significant size OM branch was occluded after t he procedure. She continued to have intermittent chest pain, which is really expected. She has a co mpletely occluded RCA, completely occluded RCA graft and occluded OM. She has some mild to moderate left main disease with a patent OAKLEY to the LAD. She had normal vital signs. Her blood pressure 125 /66 with a temperature of 98.1. Her right groin was adequate without any hematoma or ecchymosis. He r O2 saturation was 96%. However, she did have an elevated white count of 14.7. Her creatinine peña ined normal at 0.99. She was anemic at 7.8. I recommended transfusion for her anemia. When she cam e in, her hemoglobin was 8, so this is chronic. She needs to be treated for her white count with ant ibiotics. The case was discussed with Dr. Briceño. The patient is on aspirin, Plavix, metoprolol 25 b .i.d. She needs to be on a statin. We will need to increase her metoprolol to 50 b.i.d. and if she continues to have symptoms, we should add Ranexa 500 mg b.i.d. The patient is not a candidate to be taken back to the medical lab assistant. She does not have any EKG changes. We will continue to follow her as ne eded. MARLENY/MARISA Voice ID: [id number] Report ID: [id number]
[2020-07-15 20:36] LABS: Urine Appearance TURBID; Urine Bilirubin NEGATIVE (NEG); Urine Blood 3+ (NEG); Urine Color YELLOW; Urine Glucose NEGATIVE (NEG); Urine Protein 2+ (NEG); Urine Urobilinogen 0.2 mg/dL (0.2-1.0); Urine pH 7.5 (5.0-7.0)
[2020-07-15 20:37] LABS: Urine Microscopic Reflex ORDER UMIC
[2020-07-15 20:50] LABS: Urine Bacteria 20-50 /HPF (<20); Urine Mucus 2+ /HPF (NONE SEEN)
[2020-07-15] MEDS: AMOX/K CLAV 875 MG TAB PO SCH (21:05)
[2020-07-16 06:14] LABS: Absolute Lymphocytes (CBC) 1.1 K/uL (0.7-4.9); Basophils % 0.4 % (0-1.3); Hematocrit 28.1 % (36.0-45.0); Lymphocytes % 7.5 % (15.3-44.8); MPV 8.6 fL (7.6-11.3); RBC Red Blood Cell Count 3.21 M/uL (3.86-4.86)
[2020-07-16 06:27] LABS: Magnesium 1.9 mg/dL (1.8-2.4); Potassium 3.9 mmol/L (3.5-5.1)
--- NOTE | 2020-07-16 08:34 | RAD REPORT ---
EXAM DESCRIPTION: CT - Stone Protocol - 07/15/2020 10:39 pm CLINICAL HISTORY: Flank pain. hematuria, h/o staghorn calculi, recurrent UTI COMPARISON: Stone Protocol dated 06/16/2020 TECHNIQUE: Axial images were obtained without oral or IV contrast. Lack of contrast limits solid org an and vascular assessment. The [id number] spans the entirety of the system partially obscuring uppermost abdomen and lung bases. Coronal reformatted images were obtained and reviewed. All CT scans are performed using dose optimization technique as appropriate and may include automated exposure control or mA/KV adjustment according to patient size. FINDINGS: Small bilateral pleural effusions are present. Small amount of fluid is seen in the upper abdomen surrounding the hepatic edge.Cholelithiasis. No ag gressive liver or splenic lesion. The pancreas and adrenal glands are normal. Large right-sided staghorn calculus again seen, unchanged since comparative study. Mild right hydrone phrosis and hydroureter is present. Previously noted calcifications in the region of the distal right ureter are no longer seen. Tiny calcification is persists in the region of the urinary bladder. Numerous punctate calcifications are seen in the calyx of the left kidney with moderate left hydronep hrosis and hydroureter. Cervical mass is seen with probable invasion of the urinary bladder. Small air bubble is present in t he urinary bladder. 4 cm metastatic adenopathy again seen right pelvis with evidence of bony erosion near the right SI joint. Soft tissue inflammatory changes are also seen in the right groin. IMPRESSION: Large staghorn calculus involving the right kidney again noted. Punctate left nephrolith iasis also seen. Punctate air bubble in the urinary bladder may be related to infection. Moderate bilateral hydronephrosis is present. This is likely related to malignant cervical mass invad ing the urinary bladder. Metastatic adenopathy is seen in the right pelvis with slight bony erosion o f the right SI joint seen on today's study. Cholelithiasis. Small bilateral pleural effusions.
[2020-07-16] MEDS ORDERED: POTASSIUM 25 MEQ EFFERV TAB PO ONE (09:00)
[2020-07-16] MEDS: ASPIRIN EC 81 MG TAB PO SCH (09:41)
[2020-07-16] MEDS: AMOX/K CLAV 875 MG TAB PO SCH (09:41)
[2020-07-16] MEDS: CLOPIDOGREL 75 MG TABLET PO SCH (09:42)
[2020-07-16] MEDS: METOPROLOL TAR 25 MG TAB PO SCH (09:42)
[2020-07-16] MEDS: SENOSIDES 8.6 MG TAB PO SCH (09:42)
[2020-07-16] MEDS: DOCUSATE NA 100 MG CAP PO SCH (09:42)
[2020-07-16] MEDS: ENSURE ENLIVE 237 ML CAN PO SCH (09:43)
[2020-07-16] MEDS ORDERED: FLEET ENEMA ADULT PR ONE (12:44)
--- NOTE | 2020-07-16 13:57 | P.DS ---
Admission Date: 07/10/20 Discharge Date: 07/16/20 Disposition: DC HOME/HOME HEALTH CARE Discharge Condition: FAIR Reason for Admission: Chest pain Consultations: Cardiology - Dr. Tovar Procedures: CXR (07/10): No acute abnormalities displayed Venous U/S (07/10): No evidence of deep venous thrombosis involving the right lower extremity. Cardiac Cath (07/12): 100% occlusion of LAD, 90% mid circ, and 70% proximal circ stenosis. completely occluded vein graft to OM, vein graft to RCA. completely occluded ho-chunk RCA. OAKLEY to LAD wide open. Stent placed in proximal circumflex. Urine Cx (07/12): Enterococcus Faecalis Echo (07/13): EF: 72%, Aortic sclerosis with no stenosis. normal LV size and function. no wall motion abnormality CT Abd (07/15): Large staghorn calculus involving the right kidney again noted. Punctate left nephrolithiasis also seen. Punctate air bubble in the urinary bladder may be related to infection. Moderate bilateral hydronephrosis is present. This is likely related to malignant cervical mass invading the urinary bladder. Metastatic adenopathy is seen in the right pelvis with slight bony erosion of the right SI joint seen on today's study. Cholelithiasis. Small bilateral pleural effusions Problem List NSTEMI s/p stent (07/12/20) UTI Staghorn Calculi CAD s/p CABG (1996) h/o DVT h/o cervical cancer HTN functional constipation acute on chronic anemia Brief History of Present Illness: 75yo F, PMH: cervical cancer, h/o DVT, CAD s/p CABG presented to ED due to intermittent chest pain of several months duration. Reports severe intermittent episodes of chest pain that began night before admission. Chest pain worse with exertion and straining for bowel movement. She reports she was previously on Eliquis for DVT but was discontinued because she was getting tachycardia from it. EKG in ED: ST depression in V4, V5, & lead II. Given ASA, plavix, morphine, and started on heparin drip. Venous doppler of lower extremities was negative for DVT, though her right leg is more swollen compared to left. Hospital Course: She underwent cardiac catheterization as noted above, with stent placement. During stent placement, a significant sized OM branch was occluded after the procedure and was thought to be the cause of the patient's continued intermittent chest pain post-operatively. She was discharged on aspirin, plavix, metoprolol, and ranexa. Her hospitalization was complicated by a leukocytosis noted on admission. A urinalysis was obtained on 07/12 which was concerning for a UTI. She reported recently being treated for a UTI with macrobid, and had been in and out of offices/ED over the past year for at least 6 times due to UTI. She was initially treated with levaquin however her symptoms persisted, despite urine culture showing enterococcus was sensitive to levaquin. She was switched to Augmentin and repeat UA and procalcitonin had improved. Patient's symptoms had improved as well. She then reported h/o staghorn calculi and hematuria. A CT was performed and revealed a staghorn calculi, moderate b/l hydronephrosis likely related to malignant cervical mass invading the urinary bladder. This was briefly reviewed over the phone with Urology who recommended outpatient follow up. Patient had improvement in her symptoms and mild improvement in her leukocytosis (partly due to steroids used during cath for possible contrast allergy). 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 however she just "stopped going". Pt reported h/o RLE DVT within the past year, stating she was ill and didn't get out of bed. She was placed on Eliquis but had side effects, tachycardia, and hematuria. She states she was told to dc the Eliquis and only taked aspirin/plavis. After a long discussion with the patient, she reported DVT occurred when she was lying around 2/2 being ill and unable to get out of bed. She states she was told to dc the Eliquis a few months ago. Risks/Benefifts were discussed, and xarelto was offered upon discharge, however patient declined, stating her decision was due to the side-effects she got last time, ongoing anemia, recent hematuria, and tachycardia. She was instructed to take Augmentin (liquid form) twice a day for 10 days, then she is to take Macrobid once a day until she follows up with Dr. Tucker. She will need to f/u with Dr. Tucker, Dr. Tovar, her heme/onc physicians and PCP. Vital Signs/Physical Exam: Temp Pulse Resp BP Pulse Ox 98.9 F 72 18 171/81 H 96 07/16/20 12:00 07/16/20 12:00 07/16/20 12:00 07/16/20 12:00 07/16/20 12:00 General: Alert, In no apparent distress, Oriented x3 HEENT: Sclerae nonicteric Respiratory: Clear to auscultation bilaterally Cardiovascular: Regular rate/rhythm, Edema (trace-1+ on RLE, trace on LLE) Gastrointestinal: Soft and benign, No tenderness Musculoskeletal: No tenderness Integumentary: No significant lesion Neurological: Normal speech Laboratory Data at Discharge: WBC 15.2 K/uL (4.3-10.9) H 07/16/20 05:51 Hgb 9.3 g/dL (12.0-15.0) L 07/16/20 05:51 Hct 28.1 % (36.0-45.0) L 07/16/20 05:51 Plt Count 251 K/uL (152-406) 07/16/20 05:51 PT 12.7 SECONDS (9.5-12.5) H 07/10/20 10:47 INR 1.08 07/10/20 10:47 APTT 52.4 SECONDS (24.3-36.9) H 07/13/20 07:02 Sodium 143 mmol/L (136-145) 07/16/20 05:51 Potassium 3.9 mmol/L (3.5-5.1) 07/16/20 05:51 BUN 22 mg/dL (7-18) H 07/16/20 05:51 Creatinine 1.15 mg/dL (0.55-1.3) 07/16/20 05:51 Glucose 90 mg/dL (74-106) 07/16/20 05:51 Phosphorus 2.9 mg/dL (2.5-4.9) 07/10/20 17:00 Magnesium 1.9 mg/dL (1.8-2.4) 07/16/20 05:51 Total Bilirubin 0.4 mg/dL (0.2-1.0) 07/10/20 10:47 AST 24 U/L (15-37) 07/10/20 10:47 ALT 12 U/L (12-78) 07/10/20 10:47 Alkaline Phosphatase 43 U/L (45-117) L 07/10/20 10:47 Troponin I 0.12 ng/mL (0.0-0.045) H 07/11/20 09:06 Triglycerides 122 mg/dL (<150) 07/10/20 17:00 Cholesterol 143 mg/dL (<200) 07/10/20 17:00 HDL Cholesterol 45 mg/dL (40-60) 07/10/20 17:00 Cholesterol/HDL Ratio 3.18 07/10/20 17:00 Home Medications: Aspirin [Aspirin EC 81 MG] 1 tab PO DAILY 12/31/13 Amox/K Clav [Augmentin 600 MG/5 ML Susp] 7.5 ml PO BID 10 Days #150 ml 07/16/20 Clopidogrel Bisulfate [Plavix*] 75 mg PO DAILY 30 Days #30 tablet 07/16/20 Docusate [Colace Cap*] 100 mg PO BID 30 Days #60 cap 07/16/20 Ensure Enlive 237 ml PO BID can 07/16/20 Metoprolol Tartrate [Lopressor*] 1 tab PO BID 30 Days #60 tab 07/16/20 Nitrofurantoin Monohyd/M-Cryst [Macrobid 100 mg Capsule] 100 mg PO DAILY 30 Days #30 capsule 07/16/20 Nitroglycerin [Nitrostat*] 0.4 mg SL UD PRN 30 Days #60 tab 07/16/20 Ranolazine [Ranolazine ER] 500 mg PO BID 30 Days #60 tab.er.12h 07/16/20 Senosides [Senokot*] 17.2 mg PO BID tab 07/16/20 New Medications: Amox/K Clav [Augmentin 600 MG/5 ML Susp] 7.5 ml PO BID 10 Days #150 ml Docusate [Colace Cap*] 100 mg PO BID 30 Days #60 cap Metoprolol Tartrate [Lopressor*] 1 tab PO BID 30 Days #60 tab Nitrofurantoin Monohyd/M-Cryst [Macrobid 100 mg Capsule] 100 mg PO DAILY 30 Days #30 capsule Nitroglycerin [Nitrostat*] 0.4 mg SL UD PRN 30 Days #60 tab PRN Reason: Pain Scale 2-4 (Mild) Clopidogrel Bisulfate [Plavix*] 75 mg PO DAILY 30 Days #30 tablet Ranolazine [Ranolazine ER] 500 mg PO BID 30 Days #60 tab.er.12h Patient Discharge Instructions: you were found to have blockage of your coronary artery and required a stent placement. You were also found to have a UTI. You are discharged on several medications, aspirin, plavix, metoprolol. For your UTI you will take augmentin liquid twice a day for 10 days, then take Macrobid (nitrofurantoin) once a day. You will need to follow up with Urology (Dr. Tucker) as soon as possible. You will need to follow up with Cardiology (Dr. Tovar) in the next few weeks. Your cervical cancer was noted on the CT scan. It is strongly recommended you follow up with oncology in the next few weeks as well as discussed. Diet: AHA Activity: Ad nicolle Followup: Jordan Tovar MD [ACTIVE - CAN ADMIT] - (Follow up in office. Call to schedule an appointment. ) Vidal Tucker [COURTESY - CAN ADMIT] - 1-2 Weeks (Follow up in office within 1 week. Call to schedule an appointment. )
[2020-07-16 16:30] VITALS: BP 155/80; TEMP 99.1
[2020-07-16 17:16] VITALS: O2SAT 97
== END 2020-07-16 17:42 | disposition home health service (06) | DRG 246 ==
LOC: ER 09:53 → ERHOLD 13:20 → 2ND 07-13 18:35
PROVIDERS: ADMIT Internal Medicine; ATTEND Hospitalist
PROC: 027034Z Dilation of Coronary Artery, One Artery with Drug-eluting Intraluminal Device, Percutaneous Approach (ICD-10-PCS; principal; 2020-07-12)
PROC: 4A023N7 Measurement of Cardiac Sampling and Pressure, Left Heart, Percutaneous Approach (ICD-10-PCS; 2020-07-12)
PROC: B2111ZZ Fluoroscopy of Multiple Coronary Arteries using Low Osmolar Contrast (ICD-10-PCS; 2020-07-12)
DX: I21.4 Non-ST elevation (NSTEMI) myocardial infarction (principal); E43 Unspecified severe protein-calorie malnutrition; Z68.1 Body mass index [BMI] 19.9 or less, adult; N13.6 Pyonephrosis; I25.110 Atherosclerotic heart disease of native coronary artery with unstable angina pectoris; E87.6 Hypokalemia; F41.9 Anxiety disorder, unspecified; D63.8 Anemia in other chronic diseases classified elsewhere; D72.829 Elevated white blood cell count, unspecified; C53.9 Malignant neoplasm of cervix uteri, unspecified; N20.0 Calculus of kidney; K59.04 Chronic idiopathic constipation; I10 Essential (primary) hypertension; E11.9 Type 2 diabetes mellitus without complications; I25.2 Old myocardial infarction; B95.2 Enterococcus as the cause of diseases classified elsewhere; Z86.718 Personal history of other venous thrombosis and embolism; Z88.1 Allergy status to other antibiotic agents; T38.0X5A Adverse effect of glucocorticoids and synthetic analogues, initial encounter; Z88.8 Allergy status to other drugs, medicaments and biological substances; Z79.01 Long term (current) use of anticoagulants; Z79.82 Long term (current) use of aspirin; Z79.899 Other long term (current) drug therapy; Z95.1 Presence of aortocoronary bypass graft; Z91.041 Radiographic dye allergy status; Z79.02 Long term (current) use of antithrombotics/antiplatelets; Z20.822 Contact with and (suspected) exposure to COVID-19
CPT/HCPCS: 36415; 36430; 71045; 74176; 76377; 80048; 80061; 80076; 81001; 81003; 81015; 82274; 82607; 82728; 83540; 83735; 83880; 84100; 84132; 84145; 84439; 84443; 84466; 84484; 85014; 85018; 85025; 85049; 85347; 85610; 85730; 86850; 86870; 86900; 86901; 86922; 87077; 87086; 87088; 87186; 93005; 93306; 93455; 93971; 97116; 97161; 97530; 99285; C1725; C1893; C9600; J0583; J1644; J2250; J2270; J2405; J2930; J3010; J3480; J7040; J7050; P9016; U0003

== ENCOUNTER 2020-07-19 18:21 | Inpatient (IN) | payer OTHER ==
--- OUTSIDE RECORDS SUMMARY | 2020-07-19 18:23 | XMS REPORT | Continuity of Care Document ---
:1945 Author Organization [facility] t Address [address] [place] [address] Care Team Providers Name Role Phone Carmela [...] Clinicians Facility Department ID 2020-04-14 Outpatient SYSTEM, [facility] [id number] 10:40:33 PROVIDER Alexandro welch 2020-04-30 2020-04-30 Orders Doctor PEDRO [id number] 00:00:00 00:00:00 Only UnassDAHIANA yuan [id number] [facility] [id number] 2020-04-16 2020-04-16 Letter Padmaja Mcintyre [id number] 00:00:00 00:00:00 (Out) Jeyson Rivera [id number] [facility] [id number] 2020-04-16 2020-04-16 Orders Doctor WILLIS [id number] 00:00:00 00:00:00 Only Unassigned, DAHIANA [id number] [facility] [id number] 2020-04-13 2020-04-13 Telephone EVELYN Mcintyre [id number] 00:00:00 00:00:00 [employer] [id number] [facility] [id number] 2020-04-09 2020-04-09 Transition Irineo Gaonarebekah [id number] 00:00:00 00:00:00 of Care Matt Holland [id number] [place] [id number] 2020-04-09 2020-04-09 Telephone EVELYN Mcintyre [id number] 00:00:00 00:00:00 [employer] [id number] [facility] [id number] Results This patient has no known results.
[2020-07-19 19:24] LABS: Protime INR 1.1
[2020-07-19 19:25] LABS: Absolute Lymphocytes (CBC) 0.9 K/uL (0.7-4.9); Basophils % 0.4 % (0-1.3); Hematocrit 34.6 % (36.0-45.0); Lymphocytes % 5.7 % (15.3-44.8); MPV 8.3 fL (7.6-11.3); RBC Red Blood Cell Count 3.87 M/uL (3.86-4.86)
[2020-07-19 19:42] LABS: Bilirubin Total 0.4 mg/dL (0.2-1.0); Protein, Total 7.2 g/dL (6.4-8.2)
--- NOTE | 2020-07-19 20:11 | RAD REPORT ---
EXAM DESCRIPTION: US - Extremity Venous Uni Ltd - 07/19/2020 7:39 pm CLINICAL HISTORY: SWELLING Leg swelling and edema. COMPARISON: Extremity Venous Uni Ltd dated 07/10/2020; Lower Extremity Artery Uni Ltd dated 05/21/2020 ; Extremity Venous Uni Ltd dated 05/21/2020 FINDINGS: Right lower extremity venous system was interrogated with Doppler technique. Since the prior study dated 07/10/2020, there is diminished venous flow within the right femoral vein with echogenic material present. The vein is also not completely compressible. This finding is suspi cious for recurrent DVT in the femoral vein.The remainder of the deep venous system shows no evidence of DVT. IMPRESSION: Findings are suspicious for a recurrent DVT in the right femoral vein.
[2020-07-19] MEDS ORDERED: POTASSIUM 25 MEQ EFFERV TAB ONE (20:18)
--- NOTE | 2020-07-19 20:33 | EDPHYS ---
Physician Documentation [facility] Name: Meena Gandhi Age: 75 yrs Sex: Female : 1945 Arrival Date: 07/19/2020 Time: 18:33 Bed 13 Private MD: ED Physician Estevan Amezquita HPI: 07/19 18:48 This 75 yrs old Female presents to ER via EMS with complaints of Right leg pm1 swelling and pain. 18:48 The patient presents with pain, swelling. The complaints affect the right leg. Context: pm1 The problem was sustained at home, resulted from an unknown cause, the patient can fully bear weight, the patient is able to ambulate, prior history of DVT. Onset: The symptoms/episode began/occurred 2 day(s) ago. Modifying factors: The symptoms are alleviated by nothing. the symptoms are aggravated by movement and bending knee. Associated signs and symptoms: Pertinent positives: Pain to right hamstring area. Swelling to right leg below knee, Pertinent negatives calf tenderness, fever, vomiting, chest pain, shortness of breath. Treatment prior to arrival includes: no previous treatment. Severity of symptoms: in the emergency department the symptoms have improved, pain is no longer present to right leg. The patient has experienced similar episodes in the past, history of DVT in the past. The patient has been recently been admitted at [facility], Patient was admitted for NSTEMI on 07/10/2020. Stents placed and patient also treated for UTI and constipation. Discharged home with Augmentin, Macrobid, Plavix, nitro, Ranexa, and laxatives on 07/16/2020. Historical: - Allergies: 18:50 Sulfa (Sulfonamide Antibiotics); ph - PMHx: 18:50 Hypertension; Myocardial infarction; ph - PSHx: 18:50 CABG; cardiac stents; ph - Immunization history:: Adult Immunizations unknown. - Social history:: Smoking status: Patient denies any tobacco usage or history of. ROS: 18:48 Constitutional: Negative for fever, chills, and weight loss. pm1 18:48 Respiratory: Negative for shortness of breath, cough, wheezing, and pleuritic chest pain, Abdomen/GI: Negative for abdominal pain, nausea, vomiting, diarrhea, and constipation, Back: Negative for injury and pain, : Negative for injury, bleeding, discharge, and swelling, MS/Extremity: Negative for injury and deformity, Skin: Negative for injury, rash, and discoloration, Neuro: Negative for headache, weakness, numbness, tingling, and seizure. 18:48 Cardiovascular: Positive for right lower extremity swelling and pain to right hamstring area, Negative for chest pain, palpitations. Exam: 18:53 Constitutional: This is a well developed, well nourished patient who is awake, alert, pm1 and in no acute distress. Head/Face: Normocephalic, atraumatic. 18:53 Back: No spinal tenderness. No costovertebral tenderness. Full range of motion. 18:53 Cardiovascular: Exam negative for acute changes, Rate: normal, Rhythm: regular, Pulses: no pulse deficits are appreciated. 18:53 Respiratory: Exam negative for acute changes, respiratory distress, shortness of breath. 18:53 Abdomen/GI: Inspection: abdomen appears normal, Palpation: abdomen is soft and non-tender, in all quadrants. 18:53 Musculoskeletal/extremity: DVT Exam: no pain, no tenderness, no erythema, no increased warmth, swelling. 18:53 Skin: Appearance: normal except for affected area, ecchymosis, noted on the, medial aspect of right thigh, that are mild. 18:53 Neuro: Exam negative for acute changes, Orientation: is normal, Mentation: is normal, Motor: is normal, moves all fours, strength is normal, strength is 5/5 in all extremities, Sensation: is normal, no obvious gross deficits. Vital Signs: 18:47 BP 170 / 79; Pulse 63; Resp 18; Temp 97.9; Pulse Ox 100% on R/A; Weight 43.09 kg; ph 19:22 BP 158 / 85; Pulse 59; Resp 18; Pulse Ox 100% on R/A; mg2 20:30 BP 157 / 71; Pulse 61; Resp 18; Pulse Ox 100% on R/A; mg2 21:30 BP 163 / 78; Pulse 71; Resp 18; Pulse Ox 100% on R/A; mg2 MDM: 18:38 Patient medically screened. pm1 20:30 Data reviewed: vital signs. Data interpreted: Pulse oximetry: on room air is 100 %. pm1 Interpretation: normal. Counseling: I had a detailed discussion with the patient and/or guardian regarding: the historical points, exam findings, and any diagnostic results supporting the discharge/admit diagnosis, lab results, radiology results, the need for further work-up and treatment in the hospital. 20:38 Physician consultation: Flaquito Denton MD was called at 20:38, was contacted at 20:38, pm1 regarding admission, patient's condition, and will see patient would like medications started, Lovenox, 1mg/kg. 07/19 18:48 Order name: CBC with Diff; Complete Time: 21:08 pm1 07/19 18:48 Order name: CMP; Complete Time: 19:51 pm1 07/19 18:48 Order name: PT-INR; Complete Time: 19:51 pm1 07/19 20:32 Order name: Manual Differential; Complete Time: 21:08 [facility] 07/19 21:07 Order name: Factor V Leiden Mutation [facility] 07/19 21:07 Order name: PROTHROMBIN GENE ANALYSIS (F2) [facility] 07/19 18:38 Order name: Extremity Venous Uni Ltd US; Complete Time: 20:19 pm1 07/19 21:55 Order name: COVID-19 2 07/19 22:00 Order name: Magnesium; Complete Time: 22:04 [facility] 07/19 22:36 Order name: CORONAVIRUS [facility] 07/19 23:44 Order name: SARS-COV-2 RT PCR; Complete Time: 23:49 [facility] 07/20 05:08 Order name: CBC with Automated Diff [facility] 07/20 05:10 Order name: Comprehensive Metabolic Panel [facility] 07/19 21:07 Order name: CONS Pharmacy Consult [facility] 07/19 21:07 Order name: CONS Physician Consult [facility] 07/19 21:07 Order name: Heart Healthy [facility] Administered Medications: 20:27 Drug: Potassium Effervescent Tablet 50 mEq Route: PO; mg2 20:40 Follow up: Response: No adverse reaction mg2 20:45 Drug: Lovenox 1 mg/kg Route: Sub-Q; Site: right lower abdomen; mg2 22:16 Follow up: Response: No adverse reaction mg2 21:15 Drug: Metoprolol TARTRATE (Lopressor) 50 mg Route: PO; mg2 07/20 03:13 Follow up: Response: No adverse reaction mg2 Disposition: 07/21 10:30 Co-signature as Attending Physician, Estevan Amezquita MD I agree with the assessment and kdr plan of care. Disposition: 07/19/20 20:32 Hospitalization ordered by Flaquito Denton for Observation. Preliminary diagnosis is Acute embolism and thrombosis of other specified deep vein of right lower extremity. - Bed requested for Telemetry/MedSurg (observation). - Status is Observation. tw2 - Condition is Stable. - Problem is new. - Symptoms have improved. Signatures: Dispatcher [employer] EDMS Demi jimenez bd Estevan Amezquita MD MD [facility] Renee Triplett, RN RN Obdulia Murphy, RN RN cg Imtiaz Little, COMMERCIAL LOAN PROCESSOR COMMERCIAL LOAN PROCESSOR pm1 Geovanna Cruz RN RN tw2 Matt Hector, RN RN mg2 Corrections: (The following items were deleted from the chart) 07/19 21:15 20:32 Hospitalization Ordered by Flaquito Denton MD for Observation. Preliminary cg diagnosis is Acute embolism and thrombosis of other specified deep vein of right lower extremity. Bed requested for Telemetry/MedSurg (observation). Status is Observation. Condition is Stable. Problem is new. Symptoms have improved. pm1 07/20 16:28 07/19 21:15 07/19/2020 20:32 Hospitalization Ordered by Flaquito Denton MD for bd Observation. Preliminary diagnosis is Acute embolism and thrombosis of other specified deep vein of right lower extremity. Bed requested for [facility] ER HOLD. Status is Observation. Condition is Stable. Problem is new. Symptoms have improved. cg 07/20 17:05 16:28 07/19/2020 20:32 Hospitalization Ordered by Flaquito Denton MD for Observation. tw2 Preliminary diagnosis is Acute embolism and thrombosis of other specified deep vein of right lower extremity. Bed requested for Telemetry/MedSurg (observation). Status is Observation. Condition is Stable. Problem is new. Symptoms have improved. bd
--- NOTE | 2020-07-19 20:33 | ER ---
Nurse's Notes [facility] Name: Meena Gandhi Age: 75 yrs Sex: Female : 1945 Arrival Date: 07/19/2020 Time: 18:33 Bed 13 Private MD: Diagnosis: Acute embolism and thrombosis of other specified deep vein of right lower extremity Presentation: 07/19 18:47 Chief complaint: EMS states: Pt has recent hx of [place], cardiac cath and stent placement, ph reports R leg swelling and heaviness, BP elevated en route, 180s/90s, pt denies chest pain or SOB. Coronavirus screen: Client denies travel out of the [place] in the last 14 days. At this time, the client does not indicate any symptoms associated with coronavirus-19. Ebola Screen: No symptoms or risks identified at this time. Initial Sepsis Screen: Does the patient meet any 2 criteria? No. Patient's initial sepsis screen is negative. Does the patient have a suspected source of infection? No. Patient's initial sepsis screen is negative. Risk Assessment: Do you want to hurt yourself or someone else? Patient reports no desire to harm self or others. Onset of symptoms was July 19, 2020. 18:47 Method Of Arrival: EMS: [facility] 18:47 Acuity: MIGUELITO 3 ph Historical: - Allergies: 18:50 Sulfa (Sulfonamide Antibiotics); ph - PMHx: 18:50 Hypertension; Myocardial infarction; ph - PSHx: 18:50 CABG; cardiac stents; ph - Immunization history:: Adult Immunizations unknown. - Social history:: Smoking status: Patient denies any tobacco usage or history of. Screenin:51 Abuse screen: Denies threats or abuse. Denies injuries from another. Nutritional ph screening: No deficits noted. Tuberculosis screening: No symptoms or risk factors identified. Fall Risk None identified. Assessment: 18:51 General: Appears in no apparent distress. comfortable, slender, well groomed, Behavior ph is cooperative, appropriate for age, anxious, Denies fever, feeling ill. Pain: Complains of pain in right leg. Neuro: Level of Consciousness is awake, alert, obeys commands, Oriented to person, place, time, situation. Cardiovascular: Capillary refill < 3 seconds in bilateral fingers Patient's skin is warm and dry. Cardiovascular: Edema is 2+ to right midcalf, right ankle and right foot. Respiratory: Airway is patent Respiratory effort is even, unlabored, Respiratory pattern is regular, symmetrical, Denies shortness of breath. GI: No signs and/or symptoms were reported involving the gastrointestinal system. Derm: Skin is intact, is fragile, is thin, Skin is pink, warm \T\ dry. Musculoskeletal: Circulation, motion, and sensation intact. Range of motion: intact in all extremities. 21:00 Reassessment: Patient appears in no apparent distress at this time. Patient and/or mg2 family updated on plan of care and expected duration. Pain level reassessed. Patient is alert, oriented x 3, equal unlabored respirations, skin warm/dry/pink. Vital Signs: 18:47 BP 170 / 79; Pulse 63; Resp 18; Temp 97.9; Pulse Ox 100% on R/A; Weight 43.09 kg; ph 19:22 BP 158 / 85; Pulse 59; Resp 18; Pulse Ox 100% on R/A; mg2 20:30 BP 157 / 71; Pulse 61; Resp 18; Pulse Ox 100% on R/A; mg2 21:30 BP 163 / 78; Pulse 71; Resp 18; Pulse Ox 100% on R/A; mg2 ED Course: 18:33 Patient arrived in ED. ds1 18:36 Estevan Amezquita MD is Attending Physician. kdr 18:38 Imtiaz Little NP is PHCP. pm1 18:47 Renee Triplett RN is Primary Nurse. ph 18:48 Triage completed. ph 18:51 Patient has correct armband on for positive identification. Bed in low position. Call ph light in reach. Side rails up X2. media monitor on. Pulse ox on. NIBP on. Door closed. Noise minimized. Warm blanket given. 18:51 Arm band placed on Patient placed in an exam room, on a stretcher, on media monitor, ph on pulse oximetry. 19:07 Primary Nurse role handed off by Renee Triplett, JOELLE mw2 19:10 Inserted saline lock: 20 gauge in left forearm, using aseptic technique. Blood mg2 collected. 19:21 Matt Hector, JOELLE is Primary Nurse. mg2 19:21 No provider procedures requiring assistance completed. mg2 19:39 Extremity Venous Uni Ltd US In Process Unspecified. EDMS 20:32 Flaquito Denton MD is Hospitalizing Provider. pm1 21:15 Patient admitted, IV remains in place. mg2 07/20 06:35 Assisted to bedside commode. mw2 07:05 Primary Nurse role handed off by Matt Hector RN bd Administered Medications: 07/19 20:27 Drug: Potassium Effervescent Tablet 50 mEq Route: PO; mg2 20:40 Follow up: Response: No adverse reaction mg2 20:45 Drug: Lovenox 1 mg/kg Route: Sub-Q; Site: right lower abdomen; mg2 22:16 Follow up: Response: No adverse reaction mg2 21:15 Drug: Metoprolol TARTRATE (Lopressor) 50 mg Route: PO; mg2 07/20 03:13 Follow up: Response: No adverse reaction mg2 Outcome: 07/19 20:32 Decision to Hospitalize by Provider. pm1 21:15 Admitted to ER Hold. Please see [facility] for further documentation. mg2 21:15 Condition: stable 21:15 Instructed on 07/20 17:05 Patient left the ED. tw2 Signatures: Dispatcher [employer] EDMS Demi Britt Estevan Amezquita MD MD kdr [place], Demi ds1 Renee Triplett RN RN ph Imtiaz Little NP [employer] pm1 Geovanna Cruz RN RN tw2 Gildardo Chairez mw2 Matt Hector, JOELLE RN mg2
[2020-07-19] MEDS ORDERED: ALBUTEROL 2.5 MG/3 ML NEB SOL NEB PRN (20:54)
[2020-07-19] MEDS ORDERED: ACETAMINOPHEN 500 MG TAB PO PRN (20:54)
[2020-07-19] MEDS ORDERED: ONDANSETRON 4 MG/2 ML VIAL IV PRN (20:54)
[2020-07-19] MEDS ORDERED: MORPHINE 2 MG/ML SYR IV PRN (20:54)
[2020-07-19] MEDS ORDERED: ENOXAPARIN 40 MG/0.4 ML SQ ONE (20:57)
[2020-07-19 20:59] LABS: Blood Morphology Comment NOT SEEN (NOT SEEN); Platelet Estimate ADEQ
[2020-07-19] MEDS ORDERED: levoFLOXacin 500 MG TAB PO ONE (21:00)
[2020-07-19] MEDS: APIXABAN 5 MG TABLET PO SCH (21:00)
[2020-07-19] MEDS ORDERED: HYDRALAZINE HCL 20 MG/ML VIAL IV PRN (21:03)
--- NOTE | 2020-07-19 21:13 | P.HP ---
Certification for Inpatient Patient admitted to: Observation With expected LOS: <2 Midnights Patient will require the following post-hospital care: None Practitioner: I am a practitioner with admitting privileges, knowledge of patient current condition, hospital course, and medical plan of care. Services: Services provided to patient in accordance with Admission requirements found in Title 42 Section 412.3 of the Code of Federal Regulations Patient History Date of Service: 07/19/20 Reason for admission: Right leg swelling History of Present Illness: 75-year-old female past medical history of HTN, CAD status post CABG with recent PCI with stenting 5 days ago and started on Plavix in addition to aspirin. Patient presented because of persistent her worsening right lower extremity swelling since her last hospitalization. Swelling got worse to affecting ambulation . she fell today at the store and was unable to get up wihtout assitance due to the swelling . She has her carduiac cath osborn via the right femoral access and complicated immediately with extensive ecchymosis which has now resolved . She denies any chest pain, she denies any recurrent shortness of breath. On admission he had Doppler ultrasound of the lower extremity shows evidence of femoral DVT. She has been admitted for anticoagulation initiation. She has been adherent with aspirin and Plavix. Of note patient has been having a recurrent Enterococcus faecalis UTI since the last 2 months. She was recently started on Augmentin as well as nitrofurantoin for mixed laisha on last culture 4 days ago She recalls being told she has cervical cancer 10 years but oopted for herbal remedy , she has not been seen by [employer]CHIT[employer] since then . She is willing to be evaluated now and have lesion removed .Recent CT abdomen imaging from 4 days ago shows extensive cervical mass with adenopathy and b/l hydronephrosis as well as bladder invasion of lesion . Allergies Sulfa (Sulfonamide Antibiotics) [Sulfa(Sulfonamide Antibiotics)] Adverse Reaction (Verified 07/19/20 23:00) anemia Home Medications: Aspirin [Aspirin EC 81 MG] 1 tab PO DAILY 12/31/13 Amox/K Clav [Augmentin 600 MG/5 ML Susp] 7.5 ml PO BID 10 Days #150 ml 07/16/20 Clopidogrel Bisulfate [Plavix*] 75 mg PO DAILY 30 Days #30 tablet 07/16/20 Docusate [Colace Cap*] 100 mg PO BID 30 Days #60 cap 01/08/21 Ensure Enlive 237 ml PO BID can 07/16/20 Metoprolol Tartrate [Lopressor*] 1 tab PO BID 30 Days #60 tab 07/16/20 Nitrofurantoin Monohyd/M-Cryst [Macrobid 100 mg Capsule] 100 mg PO DAILY 30 Days #30 capsule 07/16/20 Nitroglycerin [Nitrostat*] 0.4 mg SL UD PRN 30 Days #60 tab 07/16/20 Ranolazine [Ranolazine ER] 500 mg PO BID 30 Days #60 tab.er.12h 07/16/20 Senosides [Senokot*] 17.2 mg PO BID tab 07/16/20 - Past Medical/Surgical History Diabetic: No -: HTN -: CAD with history of MO -: MO -: Staghorn Calculus to the Right Kidney -: Cervical Cancer, MD Arceo -: CABG -: TONSILLECTOMY -: CATARACTS BL SX -: D&C X2 -: BROKEN NOSE REPAIR Psychosocial/ Personal History: . - Family History Mother -: Heart disease Brother -: Stroke - Social History Alcohol use: No CD- Drugs: No Caffeine use: No Review of Systems 10-point ROS is otherwise unremarkable Physical Examination - Physical Exam General: Alert, In no apparent distress, Oriented x3 HEENT: Atraumatic, Normocephalic, PERRLA Neck: Supple, 2+ carotid pulse no bruit, JVD not distended Respiratory: Clear to auscultation bilaterally, Normal air movement, Diminished Cardiovascular: No edema, Normal pulses, Regular rate/rhythm Capillary refill: <2 Seconds Gastrointestinal: Normal bowel sounds, Soft and benign, Non-distended, No ascites Integumentary: No rashes, No breakdown, Tenderness/swelling Neurological: Normal gait, Normal speech, Normal strength at 5/5 x4 extr - Studies Laboratory Data (last 24 hrs) 07/19/20 19:10: PT 12.9 H, INR 1.10 07/19/20 19:10: Sodium 146 H, Potassium 3.0 L, BUN 29 H, Creatinine 1.30, Glucose 118 H, Total Bilirubin 0.4, AST 26, ALT 12, Alkaline Phosphatase 55 07/19/20 19:10: WBC 15.8 H, Hgb 11.1 L, Hct 34.6 L D, Plt Count 328 D Assessment and Plan - Problems (Diagnosis) (1) History of DVT (deep vein thrombosis) Current Visit: No Status: Acute (2) History of coronary artery bypass graft Current Visit: No Status: Acute (3) Hypertension Current Visit: No Status: Acute (4) Hypokalemia Current Visit: No Status: Acute Discharge Plan: Home Plan to discharge in: 24 Hours - Advance Directives Does patient have a Living Will: No Does patient have a Durable POA for Healthcare: No Physician Review: Patient Assessed, Agree with Above Assessment and Plan Physician Review Additional Text: Right lower extremity DVT -will obtain factor V and prothrombin level PT and INR within normal range Will initiate anticoagulation with Eliquis 10 mg b.i.d. for 7 days then 5 mg b.i.d. Continue aspirin and Plavix Prior history of underlying cervical cancer noted , will refer to Gynecology as outpatient for evaluation We need anticoagulation for the next 3-6 months since unprovoked DVT Obtain stool for occult blood # Leucocytosis - persistent since prior admission , may be due to recurrent UTI - obtain repeat UA -will start empirical levaquiin based on prior cx result -follow trend #HTN-controlled, continue metoprolol # Hypokalemia/hypernatremia-start gentle hypotonic IVF with KCl #DVT prophylaxis-as above #Recent acute coronary syndrome-continue aspirin and Plavix as well as Ranolazine # Cervical cancer - with bilateral hydronephrosis and bladder invasion - consider transfer to higher center after Gynecology eval # Asthenia - obtain PT/ot #Disposition-possible hospital stay in 1-2 days #Advanced directive-with leave as full code Time Spent Managing Pts Care (In Minutes): 65
[2020-07-19] MEDS ORDERED: METOPROLOL TAR 50 MG TAB ONE (21:51)
[2020-07-19] MEDS: NACHLORIDE 0.45% 1,000 ML with POTASSIUM CL 40 MEQ IV SCH ×2 (22:00)
[2020-07-19 22:57] VITALS: BMI 17.4
[2020-07-19] MEDS ORDERED: levoFLOXacin 500 MG TAB ONE (23:06)
[2020-07-19] MEDS ORDERED: NACHLORIDE 0.45% 1,000 ML IV ONE (23:08)
[2020-07-19] MEDS ORDERED: KCL 20 MEQ/100 mL IVPB 40 MEQ/200 ML BAG IV ONE (23:08)
[2020-07-20 04:57] LABS: Basophils % 0.3 % (0-1.3); Hematocrit 29.4 % (36.0-45.0); MPV 8.4 fL (7.6-11.3)
[2020-07-20 05:09] LABS: Albumin 2.4 g/dL (3.4-5.0); Bilirubin Total 0.4 mg/dL (0.2-1.0); Potassium 3.7 mmol/L (3.5-5.1)
--- NOTE | 2020-07-20 07:12 | CON ---
Date of Consultation: 07/20/2020 Reason For Consultation: Deep venous thrombosis of the right femoral vein. History Of Present Illness: Ms. Gandhi is a 75-year-old woman who just recently had hospital for no n-ST elevation myocardial infarction. She has had a history of CABG. Catheterization showed occlude d graft to the RCA, occluded graft to the OM, completely occluded RCA, left main disease, [place] patent to the LAD. She underwent an angioplasty and stent of the proximal and mid circumflex successfully. She did well from a cardiac standpoint. She did have a pneumonia when she was in the hospital as w ell. She recently was discharged. She comes back with a DVT of the right femoral vein. She has a h istory of hypertension, CAD, CABG stent. Allergies: SULFA. Review of Systems: Negative. Social History: Negative. Family History: Noncontributory. Medications: At home include aspirin, Plavix, Ranexa, metoprolol, and hydralazine. Physical Examination: Vital Signs: She weighed 94 pounds. Blood pressure is 150/63. HEENT: Negative. Neck: Supple with no bruit. Chest: Clear. Cardiac: Revealed a regular rhythm and rate. No murmurs, gallops, or rubs. Abdomen: Benign. Extremities: Revealed no clubbing, cyanosis. She did have edema bilaterally. Diagnostic Data: Her EKG is nonspecific. Chest x-ray is negative. White count of 13,000. Creatini ne is 1.13, hemoglobin 9.4. Ultrasound of the leg showed a DVT of the right femoral vein. Impression And Plan: 1.Acute deep vein thrombosis of the right femoral vein. I think Eliquis 10 mg b.i.d. has been start ed. She is also on aspirin and Plavix because of her recent stent. 2.Coronary artery disease, status post coronary artery bypass grafting and stent successful of the c ircumflex proximal and mid. 3.Hypertension. I will continue her regimen at home including Ranexa, metoprolol, and hydralazine. Continue Eliquis but she can definitely continue her Eliquis regimen as an outpatient. I will letitia chrise to follow her. MARLENY/MARISA Voice ID: [id number] Report ID: [id number]
[2020-07-20] MEDS ORDERED: CLOPIDOGREL 75 MG TABLET ONE (08:06)
[2020-07-20] MEDS ORDERED: METOPROLOL TAR 50 MG TAB ONE (08:06)
[2020-07-20] MEDS ORDERED: ASPIRIN EC 81 MG TAB PO ONE (08:06)
[2020-07-20] MEDS ORDERED: APIXABAN 5 MG TABLET ONE (08:07)
[2020-07-20] MEDS: METOPROLOL TAR 50 MG TAB PO SCH ×2 (08:14→20:52)
[2020-07-20] MEDS: APIXABAN 5 MG TABLET PO SCH (08:14)
[2020-07-20] MEDS: ASPIRIN EC 81 MG TAB PO SCH (08:14)
[2020-07-20] MEDS: CLOPIDOGREL 75 MG TABLET PO SCH (08:15)
[2020-07-20] MEDS: ENOXAPARIN 40 MG/0.4 ML SQ SCH (13:00)
[2020-07-20] MEDS ORDERED: ENOXAPARIN 40 MG/0.4 ML SQ ONE (13:27)
[2020-07-20] MEDS ORDERED: NA CHLORIDE 0.9% 1,000 ML IV SCH (15:00)
[2020-07-20] MEDS: NACHLORIDE 0.45% 1,000 ML with POTASSIUM CL 40 MEQ IV SCH ×4 (16:20→17:19)
[2020-07-20] MEDS ORDERED: INFLUENZA VACCINE (for 3y+) 0.5 ML DOSE IMVAC ONE (17:00)
--- NOTE | 2020-07-20 17:14 | RAD REPORT ---
EXAM DESCRIPTION: US - Renal Ultrasound-Complete - 07/20/2020 4:47 pm CLINICAL HISTORY: . Chronic renal disease. Abdominal pain COMPARISON: July 15, 2020 cat scan FINDINGS: The right kidney measures 11 cm with a mildly increased echotexture. Staghorn right renal calculus The left kidney measures 10 cm with a mildly increased echotexture. Small left renal calculi Moderate bilateral hydronephrosis. A large cervical mass invades the bladder IMPRESSION: Large cervical mass which invades the bladder obstructs the ureters resulting in moderat e bilateral hydronephrosis Increased renal echotexture consistent with parenchymal disease Staghorn right renal calculus
--- NOTE | 2020-07-20 18:05 | P.PN ---
Subjective Date of Service: 07/20/20 Chief Complaint: Right leg swelling Patient reports heaviness and pain in the right leg and difficulty walking as a result of that. She continues to refuse Eliquis. She reports intermittent suprapubic pain. Physical Examination - Vital Signs Temperature: 98.9 F Blood Pressure: 138/73 Pulse: 56 Respirations: 17 Pulse Ox (%): 96 - Physical Exam General: Alert, In no apparent distress, Oriented x3 HEENT: Mucous membr. moist/pink Neck: Supple Respiratory: Clear to auscultation bilaterally, Normal air movement Cardiovascular: Regular rate/rhythm, Normal S1 S2, Edema (Right lower extremity) Gastrointestinal: Normal bowel sounds, Soft and benign Musculoskeletal: Swelling (Right lower extremity), Tenderness Integumentary: Erythema (Right medial thigh.) Neurological: Other (No focal neurologic deficit.) - Studies Laboratory Data (last 24 hrs) 07/19/20 19:10: Magnesium 2.1 07/19/20 19:10: PT 12.9 H, INR 1.10 07/19/20 19:10: Sodium 146 H, Potassium 3.0 L, BUN 29 H, Creatinine 1.30, G lucose 118 H, Total Bilirubin 0.4, AST 26, ALT 12, Alkaline Phosphatase 55 07/19/20 19:10: WBC 15.8 H, Hgb 11.1 L, Hct 34.6 L D, Plt Count 328 D Assessment And Plan - Current Problems (Diagnosis) (1) DVT, recurrent, lower extremity, acute Current Visit: Yes Status: Acute (2) Bilateral hydronephrosis Current Visit: Yes Status: Acute (3) Cervical carcinoma Current Visit: No Status: Acute (4) Leukocytosis Current Visit: No Status: Acute (5) Staghorn calculus Current Visit: No Status: Acute (6) Coronary artery disease Current Visit: Yes Status: Acute - Plan Will discontinue Eliquis and start full-dose Lovenox. Pain medications as needed. PT to evaluate functional status for discharge planning. Empiric antibiotics Obtain UA. Stable renal function the spread moderate bilateral hydronephrosis. Renal ultrasound results reviewed the ports large cervical mass invading the bladder and obstructing the ureters causing the hydronephrosis. Will obtain Urology input regarding the hydronephrosis. Recent cardiac stent. Continue Aspirin, Plavix and Ranexa. Constipation prophylaxis.
--- NOTE | 2020-07-20 18:24 | CON ---
Date of Consultation: 07/20/2020 Reason For Consultation: Elevated BUN and creatinine, staghorn stone. History Of Present Illness: This is a 75-year-old female with significant past medical history of hypertension, hyperlipidemia, coronary artery disease status post CABG last week, the patient was in her regular state of health after discharged from the hospital, started getting leg swelling without any shortness of breath, any chest pain, came to the hospital. Upon evaluation, found to have DVT in the leg. The patient also found to have elevation in BUN and creatinine. For that reason, we have been consulted. The patient apparently had a staghorn kidney stone, used to follow up with MD Arceo. The patient had recurrent UTI. Past Medical History: Includes; 1. Hypertension. 2. Coronary artery disease status post PTCA. 3. 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 4. Cervical cancer. Past Surgical History: Includes CABG, tonsillectomy, cataract, , nose repair. Home Medications: Include aspirin, Augmentin, Plavix, metoprolol, Macrobid, nitroglycerin, Ranexa, sennoside. Family History: Positive for staghorn kidney stone and coronary artery disease, CVA. Social History: Denied smoking. Denied drinking. Denied drugs abuse. Review of Systems: Head and Neck: No red eye. No ear pain. GI: Has nausea. Has abdominal pain. : No polyuria. No hematuria. Has dysuria. 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 Respiratory: No shortness of breath. Cardiovascular: Has leg swelling. Endocrine: No polydipsia. Skin: No rash. Musculoskeletal: Low back pain. Physical Examination: Vital Signs: Blood pressure 157/63, pulse of 68, afebrile. Chest: Clear to auscultation. Heart: S1, S2. Regular. Abdomen: Soft, nontender. Extremities: +1 edema on the right. Neurologic: Alert. No focality. Laboratory Data: WBC 13.6, H and H 9.4/29.4, platelet 274. Sodium 146, potassium 3.7, bicarb 35, BUN 25, creatinine 1.1, GFR 47 yesterday, creatinine 1.3, GFR of 40, calcium 8.8. Urinalysis still pending. Current Medications: Include albuterol, Levaquin, Lovenox, Tylenol, Ranexa, metoprolol, Zofran. Assessment And Plan: 1. Chronic kidney disease with acute kidney injury secondary to prerenal, on the recovery phase. I am going to continue the patient on gentle hydration and we will follow up. Given the history of staghorn kidney, I am going to do renal ultrasound to evaluate further kidney stone. We will send for urinalysis and we will follow up the patient. 2. Staghorn with recurrent urinary tract infection. I agree with Levaquin. We will follow up the urine culture. 3. Deep vein thrombosis. Continue current anticoagulation. We will follow up with the primary. 4. Coronary artery disease as by Cardiology. Time spent discussing with the patient, [id number], using the translation, discussing with the staff and placing an order, discussing with over subspecialty and hospitalist 75 minutes. MARKO Voice ID: [id number] Report ID: [id number] STEPHANIE
[2020-07-20] MEDS: levoFLOXacin 250 MG TAB PO SCH (20:51)
[2020-07-20] MEDS: SENOSIDES 8.6 MG TAB PO SCH ×2 (20:51→21:00)
[2020-07-20] MEDS: DOCUSATE NA 100 MG CAP PO SCH (20:51)
[2020-07-20] MEDS: ENSURE ENLIVE 237 ML CAN PO SCH (20:52)
[2020-07-21] MEDS: ENOXAPARIN 40 MG/0.4 ML SQ SCH ×2 (00:56→13:06)
[2020-07-21 05:42] LABS: Urine Appearance TURBID; Urine Bilirubin NEGATIVE (NEG); Urine Blood 3+ (NEG); Urine Color YELLOW; Urine Glucose NEGATIVE (NEG); Urine Protein 2+ (NEG); Urine Urobilinogen 0.2 mg/dL (0.2-1.0)
[2020-07-21 06:45] LABS: Urine Bacteria >50 /HPF (<20)
[2020-07-21 06:59] LABS: Albumin 2.2 g/dL (3.4-5.0); Potassium 3.9 mmol/L (3.5-5.1)
[2020-07-21] MEDS: DOCUSATE NA 100 MG CAP PO SCH ×2 (08:11→21:14)
[2020-07-21] MEDS: METOPROLOL TAR 50 MG TAB PO SCH ×2 (08:12→21:14)
[2020-07-21] MEDS: CLOPIDOGREL 75 MG TABLET PO SCH (08:12)
[2020-07-21] MEDS: ASPIRIN EC 81 MG TAB PO SCH (08:12)
[2020-07-21] MEDS: SENOSIDES 8.6 MG TAB PO SCH ×2 (08:13→21:00)
[2020-07-21] MEDS: ENSURE ENLIVE 237 ML CAN PO SCH ×2 (08:14→21:15)
--- NOTE | 2020-07-21 12:45 | P.CNS ---
Date of Consult: 07/21/20 75-year-old woman with hypertension, CAD status post PCI with stent 5 days prior to admission on aspirin and Plavix since that time presents via emergency department for admission and urologic consultation extended presumably given large volume hydronephrosis and staghorn calculus seen on ultrasound below. Report Status: Signed EXAM DESCRIPTION: US - Renal Ultrasound-Complete - 07/20/2020 4:47 pm CLINICAL HISTORY: . Chronic renal disease. Abdominal pain COMPARISON: July 15, 2020 cat scan FINDINGS: The right kidney measures 11 cm with a mildly increased echotexture. Staghorn right renal calculus The left kidney measures 10 cm with a mildly increased echotexture. Small left renal calculi Moderate bilateral hydronephrosis. A large cervical mass invades the bladder IMPRESSION: Large cervical mass which invades the bladder obstructs the ureters resulting in moderate bilateral hydronephrosis Increased renal echotexture consistent with parenchymal disease Staghorn right renal calculus Dictated By: Mandeep Coleman MD 07/20/20 1714 Recommend Abdomen-Pelvis CT - CTUrogram (w/o then w/ IV contrast + delayed phase imaging) to assess for 1) potential obstructing calculus (given bilateral nephrolithiasis), anatomic obstruction from cervical mass as suspected on U/S, or other source for the hydronephrosis. If unable to obtain IV contrast (cr 1.2 (eGFR 44 today), non-contrast CT Abd- pelvis (stone protocol) recommended EXAM DESCRIPTION: CT - Stone Protocol - 07/21/2020 2:36 pm CLINICAL HISTORY: Obstructive uropathy COMPARISON: Stone Protocol dated 07/15/2020; Stone Protocol dated 06/16/2020 TECHNIQUE: Axial 5 mm thick images were obtained without oral or IV contrast. The [id number] spans the entirety of the system including uppermost abdomen and lung bases. All CT scans are performed using dose optimization technique as appropriate and may include automated exposure control or mA/KV adjustment according to patient size. FINDINGS: Large right-sided staghorn calculus again noted. Moderate severity right-sided hydronephrosis surrounds the staghorn similar in severity to comparison. Moderate severity right-sided hydroureter extends towards the pelvic inlet. Two 5 millimeter sized calcifications are present layering along the posterior wall of the ureter at the pelvic inlet. Moderately severe left-sided hydronephrosis and hydroureter present as well to at least the pelvic inlet level. Punctate calyx and parenchymal calculi on the left again. . No suspicious solid mass of either kidney. No significant adrenal finding. Urinary bladder is only partially filled. Several small calculi are present within the lumen. Air density is present within the lumen as well. This could be from catheterization attempts. Large bulky lobulated cervical mass noted. This causes extrinsic compression of the ureters. Invasion of the bladder is evident as well. These are all stable findings from July 15. Imaged portions of the liver, spleen and pancreas show no suspicious findings on non-contrast imaging. No gallbladder or biliary tree abnormality identified. No suspicious bowel findings. A 4-5 centimeter size mass is again noted along the inner table right pelvis at the SI joint level. Early bone destructive changes are present as previously noted. No new mass or bulky lymphadenopathy. Nonspecific periaortic lymph nodes are present. Small amount of free fluid is present in the dependent portion of the pelvis. No free air or pneumatosis. Significant fluid retention in the subcutaneous fatty tissues. Small amount of free fluid adjacent to the liver. No new bone finding. IMPRESSION: CT abdomen and pelvis imaging findings are stable from July 15. The large pelvic mass, right-sided pelvic malignant adenopathy, and bilateral hydronephrosis oral stable. Full assessment including assessment of renal isodense masses and pyelonephritis is limited in the absence of IV contrast. 75-year-old woman with large cervical mass likely consistent with cervical carcinoma, but patient suggests she underwent a biopsy 3 months ago at another facility and never followed up the pathologic result. She indicates she had a consultation, likely with a sales support specialist, who suggested it was not surgically resectable and recommended chemotherapy and radiation therapy. She has been highly resistant to the idea of that approach because of other experiences with individuals she has known. As a result, she now presents extremely anxious and worried, feeling that she has prayed and not received the miracle healing/cure that she had prayed for. It is not clear how much she appreciates about her underlying disease process. 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 I explained her options for management of her obstructed upper tracts to be placement of bilateral percutaneous nephrostomy tubes. While there is mostly preservation of her renal function, there is likely a degree of decline as I would expect her creatinine to be <1.0. Were she to visit with a medical oncologist, depending on the chemotherapeutic regimen most appropriate, she may benefit from placement of the percutaneous nephrostomy tubes to optimize her renal function in order to receive the most effective chemotherapeutic regimen. Otherwise, if she elects not to proceed down the medical oncologic route, there likely is little value in burdening her with bilateral externalized drainage devices in the setting of metastatic disease where her risk of mortality in short order is likely high. Therefore, I recommend medical oncology and radiation oncology consultation and discussion. If the chemotherapeutic regimen agreed upon requires optimal renal function, a percutaneous nephrostomy tube should be placed bilaterally. As far as management of her staghorn renal calculi, as long as she has no signs of progressively necrotizing infection like xanthogranulomatous pyelonephritis or further decline in her renal function associated with the stones, there is no role for immediate surgical therapy to manage her stones in the setting of metastatic disease where her operative morbidity is high. Over 30 minutes [id number] time was spent with this patient who clearly has acceptance issues relative to her malignancy diagnosis. Clinic conversation with Dr. Murray revealed that she shared with him she has known about this diagnosis for over 10 years and has been using herbal remedies to manage it.
--- NOTE | 2020-07-21 13:22 | PN ---
Date of Progress Note: 07/21/2020 Subjective: The patient was admitted with acute kidney injury. The patient had history of staghorn. The patient is not clear why she follow up with MD Arceo. According to her, possible cervical cancer. The patient workup show obstructive uropathy. Physical Examination: Vital Signs: Blood pressure 160/77, pulse of 57, afebrile. The patient had good urine output, still incontinent. Chest: Clear to auscultation. Heart: S1, S2 regular. Abdomen: Soft nontender. Extremities: No edema. Neuro: Alert, oriented x3. Laboratory Data: WBC 13.6, H and H 9.4/29.4, platelets 274. Sodium 146, potassium 3.9, bicarb 32, BUN 21, creatinine down to 1.2, GFR of 44, calcium 8.4, phos of 3, albumin 2.2. Urine analysis, wbc above 50. PC ratio is 6 with disproportion as dipsticks only +2, but has 60 g. Renal ultrasound showing 11/10; moderate bilateral hydronephrosis, large cervical mass invading the bladder. Assessment And Plan: 1. Acute kidney injury secondary to prerenal superimposed with obstructive uropathy with nephrotic range of proteinuria and disproportion in dipstick and the quantification. I am going to continue hydration. I am going to send for serum protein electrophoresis. We will consult Urology and the patient is going to need evaluation. If urology decided that this is as outpatient procedure, the patient can be discharged to follow up as out patient. 2. Urinary tract infection with staghorn stone on the right side and obstructive uropathy complicated UTI. We will follow up with the primary. Continue current antibiotic. We will follow up culture. 3. Nephrotic range of proteinuria. Our differential diagnosis #1 secondary to FSGS obstructive uropathy. Secondary to light chain disease supported with disproportion protein creatinine and anemia. I am going to send for serum protein electrophoresis. I am going to send for serology for further evaluation with the presence of acute kidney injury. I am going to avoid adding any PILI inhibitor or ARB. 4. Anemia of chronic kidney disease, send for the workup and we will follow up. Time spent discussing with the patient, [id number], using the translation, discussing with the staff and placing an order, discussing with over subspecialty and hospitalist 45 minutes. MARKO Voice ID: [id number] Report ID: [id number] STEPHANIE
--- NOTE | 2020-07-21 13:30 | P.PN ---
Subjective Date of Service: 07/21/20 Chief Complaint: Right leg swelling Patient has no new complain. She ambulated with PT today. Patient tolerating Lovenox subcu. Physical Examination - Vital Signs Temperature: 98.5 F Blood Pressure: 146/67 Pulse: 60 Respirations: 16 Pulse Ox (%): 99 - Physical Exam General: Alert, In no apparent distress HEENT: Mucous membr. moist/pink Neck: Supple, JVD not distended Respiratory: Clear to auscultation bilaterally, Normal air movement Cardiovascular: Regular rate/rhythm, Normal S1 S2, Edema (Right leg) Gastrointestinal: Normal bowel sounds, Soft and benign, Non-distended Musculoskeletal: No swelling Integumentary: No rashes Neurological: Other (No focal deficit.) Assessment And Plan - Current Problems (Diagnosis) (1) DVT, recurrent, lower extremity, acute Current Visit: Yes Status: Acute (2) Bilateral hydronephrosis Current Visit: Yes Status: Acute (3) Cervical carcinoma Current Visit: No Status: Acute (4) Leukocytosis Current Visit: No Status: Acute (5) Staghorn calculus Current Visit: No Status: Acute (6) Coronary artery disease Current Visit: Yes Status: Acute - Plan Continue full-dose Lovenox. Pain medications as needed. Continue Levaquin for recurrent UTI. Stable renal function despite bilateral hydronephrosis. Renal ultrasound results reviewed reports large cervical mass invading the bladder and obstructing the ureters causing the hydronephrosis. Urology input appreciated. CT abdomen and pelvis with and without contrast requested. Recent cardiac stent. Continue Aspirin, Plavix and Ranexa. Constipation prophylaxis. Disposition: SNF. Physician Review: Patient Assessed, Agree with Above Assessment and Plan
[2020-07-21] MEDS: NACHLORIDE 0.45% 1,000 ML with POTASSIUM CL 40 MEQ IV SCH ×2 (13:51)
--- NOTE | 2020-07-21 14:56 | RAD REPORT ---
EXAM DESCRIPTION: CT - Stone Protocol - 07/21/2020 2:36 pm CLINICAL HISTORY: Obstructive uropathy COMPARISON: Stone Protocol dated 07/15/2020; Stone Protocol dated 06/16/2020 TECHNIQUE: Axial 5 mm thick images were obtained without oral or IV contrast. The [id number] span s the entirety of the system including uppermost abdomen and lung bases. All CT scans are performed using dose optimization technique as appropriate and may include automated exposure control or mA/KV adjustment according to patient size. FINDINGS: Large right-sided staghorn calculus again noted. Moderate severity right-sided hydronephro sis surrounds the staghorn similar in severity to comparison. Moderate severity right-sided hydrouret er extends towards the pelvic inlet. Two 5 millimeter sized calcifications are present layering along the posterior wall of the ureter at the pelvic inlet. Moderately severe left-sided hydronephrosis an d hydroureter present as well to at least the pelvic inlet level. Punctate calyx and parenchymal calc misha on the left again. . No suspicious solid mass of either kidney. No significant adrenal finding. U rinary bladder is only partially filled. Several small calculi are present within the lumen. Air dens ity is present within the lumen as well. This could be from catheterization attempts. Large bulky lob ulated cervical mass noted. This causes extrinsic compression of the ureters. Invasion of the bladder is evident as well. These are all stable findings from July 15. Imaged portions of the liver, spleen and pancreas show no suspicious findings on non-contrast imaging . No gallbladder or biliary tree abnormality identified. No suspicious bowel findings. A 4-5 centimeter size mass is again noted along the inner table right pelvis at the SI joint level. E rigoberto bone destructive changes are present as previously noted. No new mass or bulky lymphadenopathy. Nonspecific periaortic lymph nodes are present. Small amount of free fluid is present in the dependen t portion of the pelvis. No free air or pneumatosis. Significant fluid retention in the subcutaneous fatty tissues. Small amount of free fluid adjacent to the liver. No new bone finding. IMPRESSION: CT abdomen and pelvis imaging findings are stable from July 15. The large pelvic mass, right-sided pelvic malignant adenopathy, and bilateral hydronephrosis oral stable. Full assessment including assessment of renal isodense massesand pyelonephritis is limited in the abs ence of IV contrast.
[2020-07-21] MEDS: levoFLOXacin 250 MG TAB PO SCH (21:14)
[2020-07-22] MEDS: ENOXAPARIN 40 MG/0.4 ML SQ SCH ×2 (01:12→12:41)
[2020-07-22 05:06] LABS: Absolute Lymphocytes (CBC) 0.9 K/uL (0.7-4.9); Basophils % 0.3 % (0-1.3); Hematocrit 25.4 % (36.0-45.0); Lymphocytes % 6.3 % (15.3-44.8); MPV 8.8 fL (7.6-11.3); RBC Red Blood Cell Count 2.86 M/uL (3.86-4.86)
[2020-07-22 08:40] LABS: Albumin 2.2 g/dL (3.4-5.0); Ferritin 296.7 ng/mL (8-388); Phosphorus 2.7 mg/dL (2.5-4.9); Potassium 4.3 mmol/L (3.5-5.1)
[2020-07-22] MEDS: SENOSIDES 8.6 MG TAB PO SCH ×3 (08:48→20:09)
[2020-07-22] MEDS: METOPROLOL TAR 50 MG TAB PO SCH ×2 (08:48→20:06)
[2020-07-22] MEDS: ASPIRIN EC 81 MG TAB PO SCH (08:48)
[2020-07-22] MEDS: CLOPIDOGREL 75 MG TABLET PO SCH (08:48)
[2020-07-22] MEDS: DOCUSATE NA 100 MG CAP PO SCH ×2 (08:49→20:06)
[2020-07-22] MEDS: ENSURE ENLIVE 237 ML CAN PO SCH ×2 (08:49→20:07)
[2020-07-22] MEDS: NACHLORIDE 0.45% 1,000 ML with POTASSIUM CL 40 MEQ IV SCH ×2 (11:12)
--- NOTE | 2020-07-22 14:15 | PN ---
Date of Progress Note: 07/22/2020 Subjective: The patient was admitted with acute kidney injury secondary to obstructive uropathy, complicated UTI and DVT. The patient found to have cervical cancer with invasion to the bladder with obstructive uropathy. The patient had also chronic staghorn kidney on the right side. Physical Examination: Vital Signs: Blood pressure 145/71, pulse of 59, afebrile. The patient still has good urine output. The patient is incontinent. Chest: Clear to auscultation. Heart: S1, S2. Regular. Abdomen: Soft. Dullness on the suprapubic area. Extremities: No edema. Neurologic: Alert and oriented x3. No focal. Laboratory Data: WBC 13.5, H and H 8.2/25.4, platelets 213. Sodium 145, potassium 4.3, bicarb 30, BUN 22, creatinine 1.2, GFR of 42 which is being stable, calcium 8.4, phosphorus 2.7, ferritin of 296. Iron saturation is still pending. Albumin 2.2, corrected calcium is 9.8, vitamin B12 of 256. Urinalysis positive for infection. Microbiology, no growth. Current Medications: The patient on include; 1. Aspirin. 2. Levaquin 250 daily. 3. Albuterol. 4. Plavix. 5. Metoprolol. 6. Ranexa. 7. Zofran. Assessment And Plan: 1. Acute kidney injury on chronic kidney disease with acute component secondary to obstructive uropathy and toxic acute tubular necrosis secondary to urinary tract infection. I am going to continue current antibiotic. I agree with Levaquin as good penetration. We will increase the dose to 500 mg given the GFR above 30 and we will continue to monitor the patient. 2. Hypertension, controlled, optimal. 3. Complicated urinary tract infection with staghorn and also obstructive uropathy secondary to cervical mass with invasion to the bladder. Seen by Urology. Recommended outpatient workup including chemo and radiation with Oncology and Outpatient Therapist. I agree with that plan. The patient cleared from the Renal standpoint for discharge planning to follow up as outpatient. 4. 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 Continue current anticoagulation. Time spent discussing with the patient, [id number], using the translation, discussing with the staff and placing an order, discussing with over subspecialty and hospitalist 45 minutes. MARKO Voice ID: [id number] Report ID: [id number] STEPHANIE
--- NOTE | 2020-07-22 16:03 | P.PN ---
Subjective Date of Service: 07/22/20 Chief Complaint: Right leg swelling Patient has no new complain. She is tolerating PT today. Physical Examination - Vital Signs Temperature: 98.2 F Blood Pressure: 145/71 Pulse: 59 Respirations: 15 Pulse Ox (%): 98 - Physical Exam General: Alert, In no apparent distress Neck: Supple Respiratory: Clear to auscultation bilaterally, Normal air movement Cardiovascular: Edema (Mild right lower extremity edema.) Assessment And Plan - Current Problems (Diagnosis) (1) DVT, recurrent, lower extremity, acute Current Visit: Yes Status: Acute (2) Bilateral hydronephrosis Current Visit: Yes Status: Acute (3) Cervical carcinoma Current Visit: No Status: Acute (4) Leukocytosis Current Visit: No Status: Acute (5) Staghorn calculus Current Visit: No Status: Acute (6) Coronary artery disease Current Visit: Yes Status: Acute - Plan Continue full-dose Lovenox. Pain medications as needed. Continue Levaquin for recurrent UTI. Stable renal function despite bilateral hydronephrosis. Renal ultrasound results reviewed reports large cervical mass invading the bladder and obstructing the ureters causing the hydronephrosis. Urology input appreciated. CT abdomen and pelvis result reviewed. Urology to follow Case discussed with Dr. Fregoso. She will evaluate and discussed options of treatment. Recent cardiac stent. Continue Aspirin, Plavix and Ranexa. Constipation prophylaxis. She may probably require nephrostomy tubes along the way. High risk for surgery at the moment given recent unstable angina and cardiac stent placement. Disposition: [facility].
[2020-07-22] MEDS: levoFLOXacin 500 MG TAB PO SCH (20:06)
[2020-07-22 23:12] VITALS: O2SAT 99
[2020-07-23] MEDS: ENOXAPARIN 40 MG/0.4 ML SQ SCH ×2 (00:23→13:33)
[2020-07-23] MEDS: NACHLORIDE 0.45% 1,000 ML with POTASSIUM CL 40 MEQ IV SCH ×2 (06:33)
[2020-07-23 06:55] LABS: Albumin 2.4 g/dL (3.4-5.0); Phosphorus 3.3 mg/dL (2.5-4.9); Potassium 4.3 mmol/L (3.5-5.1)
[2020-07-23] MEDS: METOPROLOL TAR 50 MG TAB PO SCH ×2 (08:19→20:35)
[2020-07-23] MEDS: ASPIRIN EC 81 MG TAB PO SCH (08:19)
[2020-07-23] MEDS: DOCUSATE NA 100 MG CAP PO SCH ×2 (08:19→20:35)
[2020-07-23] MEDS: CLOPIDOGREL 75 MG TABLET PO SCH (08:19)
[2020-07-23] MEDS: SENOSIDES 8.6 MG TAB PO SCH ×2 (08:20→20:35)
[2020-07-23] MEDS: ENSURE ENLIVE 237 ML CAN PO SCH ×2 (08:20→20:36)
[2020-07-23] MEDS ORDERED: MAGNESIUM CITRATE 300 ML BOT PO ONE (10:00)
--- NOTE | 2020-07-23 16:01 | P.DS ---
Admission Date: 07/21/20 Discharge Date: 07/23/20 Disposition: TRANSFER TO CUSTODIAL Discharge Condition: FAIR Reason for Admission: Right leg swelling - Problems (1) DVT, recurrent, lower extremity, acute Current Visit: Yes Status: Acute (2) Bilateral hydronephrosis Current Visit: Yes Status: Acute (3) Cervical carcinoma Current Visit: No Status: Acute (4) Leukocytosis Current Visit: No Status: Acute (5) Staghorn calculus Current Visit: No Status: Acute (6) Coronary artery disease Current Visit: Yes Status: Acute (7) Acute renal failure Current Visit: Yes Status: Acute Brief History of Present Illness: 75-year-old woman with a history of hypertension, coronary artery disease status post CABG, recent cardiac catheterization with stenting 5 days prior on aspirin and Plavix presented to the emergency department with a complaint of right lower extremity swelling. Patient reported trouble with ambulation. She fell and was not able to get up due to heaviness in her right leg per patient. Venous Doppler done in the ED reported right femoral vein DVT. Patient was admitted for anticoagulation and also to be evaluated by physical therapy. Patient was on Augmentin for recurrent UTI. She has a history of cervical cancer which per patient was diagnosed 10 years ago but has not followed up with gynecology oncology. She mentioned she was seen at [facility] and was supposed to have surgery done but did not follow up. Hospital Course: Patient admitted to the medical floor and treated for DVT with full-dose Lovenox. Patient declined any form of DOAC. She stated Eliquis causes her heart to race. CT abdomen and pelvis reported bilateral moderate to severe hydronephrosis, large cervical mass causing extrinsic compression of the ureters, right malignant adenopathy and bilateral hydronephrosis. Patient was seen in consultation by oncology-Dr. Fregoso who discussed patient options with her to include further evaluation followed by chemotherapy and radiation or hospice. She is at the moment not at the appropriate functional performance stage to undergo chemo or radiation. Patient declined hospice. She was evaluated by urology who recommended nephrostomy tube placement if she wants to proceed with aggressive measures. I discussed with her the need for nephrostomy tube placement to preserve her kidney as she decides whether to proceed with aggressive measures or not. Noted her serum creatinine trended up today. Patient declined any nephrostomy tube placement at this time. She was seen by physical therapy and patient accepted for Skilled rehab. Patient would like to go to rehab before deciding on any treatment. Vital Signs/Physical Exam: Temp Pulse Resp BP Pulse Ox 98.9 F 64 15 143/65 H 100 07/23/20 12:00 07/23/20 12:00 07/23/20 12:00 07/23/20 12:00 07/23/20 12:00 General: Alert, In no apparent distress, Oriented x3 Neck: Supple, JVD not distended Respiratory: Clear to auscultation bilaterally, Normal air movement Cardiovascular: No edema, Regular rate/rhythm, Normal S1 S2 Gastrointestinal: Soft and benign, Non-distended, No tenderness Musculoskeletal: Swelling (Right lower extremity mildly swollen compared to the left.) Neurological: Other (No focal deficit.) Laboratory Data at Discharge: WBC 13.5 K/uL (4.3-10.9) H 07/22/20 04:34 Hgb 8.2 g/dL (12.0-15.0) L 07/22/20 04:34 Hct 25.4 % (36.0-45.0) L 07/22/20 04:34 Plt Count 213 K/uL (152-406) D 07/22/20 04:34 PT 12.9 SECONDS (9.5-12.5) H 07/19/20 19:10 INR 1.10 07/19/20 19:10 Sodium 144 mmol/L (136-145) 07/23/20 06:26 Potassium 4.3 mmol/L (3.5-5.1) 07/23/20 06:26 BUN 20 mg/dL (7-18) H 07/23/20 06:26 Creatinine 1.45 mg/dL (0.55-1.3) H 07/23/20 06:26 Glucose 88 mg/dL (74-106) 07/23/20 06:26 Phosphorus 3.3 mg/dL (2.5-4.9) 07/23/20 06:26 Magnesium 2.1 mg/dL (1.8-2.4) 07/19/20 19:10 Total Bilirubin 0.4 mg/dL (0.2-1.0) 07/20/20 04:40 AST 22 U/L (15-37) 07/20/20 04:40 ALT 11 U/L (12-78) L 07/20/20 04:40 Alkaline Phosphatase 46 U/L (45-117) 07/20/20 04:40 Home Medications: Aspirin [Aspirin EC 81 MG] 1 tab PO DAILY 12/31/13 Clopidogrel Bisulfate [Plavix*] 75 mg PO DAILY 30 Days #30 tablet 07/16/20 Docusate [Colace Cap*] 100 mg PO BID 30 Days #60 cap 07/16/20 Ensure Enlive 237 ml PO BID can 07/16/20 Metoprolol Tartrate [Lopressor*] 1 tab PO BID 30 Days #60 tab 07/16/20 Nitrofurantoin Monohyd/M-Cryst [Macrobid 100 mg Capsule] 100 mg PO DAILY 30 Days #30 capsule 07/16/20 Nitroglycerin [Nitrostat*] 0.4 mg SL UD PRN 30 Days #60 tab 07/16/20 Ranolazine [Ranolazine ER] 500 mg PO BID 30 Days #60 tab.er.12h 07/16/20 Senosides [Senokot*] 17.2 mg PO BID tab 07/16/20 Albuterol Neb [Proventil 0.083% Neb Soln] 2.5 mg NEB Q6HP PRN amp 07/21/20 Enoxaparin Sodium [Lovenox 40 MG INJ*] 40 mg SQ Q12H syr 07/21/20 Bisacodyl [Dulcolax] 10 mg RC DAILY PRN #30 supp 07/23/20 Enoxaparin Sodium [Lovenox 40 MG INJ] 40 mg SQ Q12H #60 syr 07/23/20 levoFLOXacin [Levaquin*] 500 mg PO BEDTIME #7 tab 07/23/20 New Medications: Bisacodyl [Dulcolax] 10 mg RC DAILY PRN #30 supp PRN Reason: Constipation levoFLOXacin [Levaquin*] 500 mg PO BEDTIME #7 tab Enoxaparin Sodium [Lovenox 40 MG INJ] 40 mg SQ Q12H #60 syr Diet: AHA Activity: Ad nicolle Followup: Unknown,U [Primary Care Provider] - 1-2 Weeks Shara Fregoso MD [ACTIVE - CAN ADMIT] - (within 2 weeks.) Time spent managing pt's care (in minutes): 45
[2020-07-23] MEDS ORDERED: BISACODYL 10 MG RECTAL SUPP PR ONE (17:00)
[2020-07-23] MEDS ORDERED: FLEET ENEMA ADULT PR ONE (18:00)
--- NOTE | 2020-07-23 18:18 | P.PN ---
Subjective Date of Service: 07/23/20 Chief Complaint: Right leg swelling Patient has no new complain. She reports 5 days of constipation. Patient seen by oncology-Dr. Fregoso. Physical Examination - Vital Signs Temperature: 99.5 F Blood Pressure: 194/83 Pulse: 69 Respirations: 16 Pulse Ox (%): 99 - Physical Exam General: Alert, In no apparent distress Neck: JVD not distended Respiratory: Clear to auscultation bilaterally, Normal air movement Cardiovascular: No edema, Regular rate/rhythm, Normal S1 S2 Gastrointestinal: Soft and benign, Non-distended, No tenderness Musculoskeletal: Swelling (Mild right lower extremity swelling) Integumentary: No rashes Neurological: Other (No focal deficit.) - Studies Microbiology Data (last 24 hrs): 07/21/20 02:20 Clean Catch Urine [place] Count - Final No growth. 07/21/20 02:20 Clean Catch Urine - Final No growth. Assessment And Plan - Current Problems (Diagnosis) (1) DVT, recurrent, lower extremity, acute Current Visit: Yes Status: Acute (2) Bilateral hydronephrosis Current Visit: Yes Status: Acute (3) Cervical carcinoma Current Visit: No Status: Acute (4) Leukocytosis Current Visit: No Status: Acute (5) Staghorn calculus Current Visit: No Status: Acute (6) Coronary artery disease Current Visit: Yes Status: Acute (7) Acute renal failure Current Visit: Yes Status: Acute - Plan Continue full-dose Lovenox. Pain medications as needed. Continue Levaquin for recurrent UTI. Renal function trended up slightly today. I discussed transfer for nephrostomy tube placement if her renal function get worse and she wants to pursue aggressive measures for her cancer. The patient declined transfer for nephrostomy tube placement. She also declined hospice Recent cardiac stent. Continue Aspirin, Plavix and Ranexa. Treat constipation with Dulcolax suppository and if not successful the trial of enema. Patient declined Mag citrate. High risk for major surgery at the moment given recent unstable angina and cardiac stent placement. Disposition: [facility].
[2020-07-23] MEDS: levoFLOXacin 500 MG TAB PO SCH (20:36)
[2020-07-23 20:37] VITALS: BP 159/72
[2020-07-23 22:02] VITALS: TEMP 97.1
[2020-07-24 17:21] LABS: Hepatitis C Virus RNA (PCR)log <1.18 log IU/mL
[2020-07-25 14:36] LABS: HIV AG/AB 4TH GEN Non-reactive (Non-reactive)
[2020-07-25 15:08] LABS: Prothrombin Gene Analysis Test REPORT
--- NOTE | 2020-07-26 12:53 | P.PN ---
Date of Service: 07/23/20 (Oncology) Reason for consultation: Metastatic cervical cancer LATE NOTE ENTRY [facility]. Case was discussed with Dr Murray when patient was seen on 07/23/2020 Apparently diagnosed in 2012 and was following at [facility]. She reports that ?? no treatment was offered. Ihsan opted for spirutual care and has done well so far. Patient seems to have locally advanced metastatic cervical cancer. She seems quite frail with borderline performance status (ECOG 3). Based on the imaging, she has extensive locally advanced disease with significant local compression causing hydronephrosis and will need nephrostomy tubes. We had an extensive discussion that the cancer is not curable and treatment is mainly aimed with a palliative intent to prolong survival and palliate symptoms. After a complete work up, possible treatment options include palliative chemotherapy vs chemotherapy + radiation. Whether surgery is an option at this point is also questionable but she can have evaluation with a [facility] at [facility]. Given her borderline performance status, her tolerance to chemotherapy is quite debatable. She enquires about opting for spiritual care. In that case, I recommended hospice care might be the ideal option. She is unable to make a decision but will let me know as soon as possible. She has been a pt of [facility] in the past and might want to consider follow up with them for treatment options and evaluation. I have given her my contact details as well should she wish to pursue palliative treatment locally in [place]. Follow up with Urology for nephrostomy tube placement.
[2020-07-27 21:11] LABS: Albumin, (SPE) 2.4 g/dL (3.8-4.8); Alpha-1-Globulins 0.4 g/dL (0.2-0.3); Alpha-2-Globulins 0.7 g/dL (0.5-0.9); Gamma Globulins 0.9 g/dL (0.8-1.7); INTERPRETATION REPORT
[2020-07-28 06:14] LABS: HBsAG Nonreactive (Nonreactive)
== END 2020-07-23 22:40 | DRG 280 ==
LOC: ER 18:21 → ERHOLD 21:10 → 2ND 07-20 16:51 → OBSVTOIN 07-21 13:13
PROVIDERS: ADMIT Internal Medicine; ATTEND Internal Medicine
DX: I82.411 Acute embolism and thrombosis of right femoral vein (principal); I21.4 Non-ST elevation (NSTEMI) myocardial infarction; N17.0 Acute kidney failure with tubular necrosis; E87.0 Hyperosmolality and hypernatremia; N13.6 Pyonephrosis; C79.51 Secondary malignant neoplasm of bone; I25.10 Atherosclerotic heart disease of native coronary artery without angina pectoris; E78.5 Hyperlipidemia, unspecified; D72.829 Elevated white blood cell count, unspecified; F41.9 Anxiety disorder, unspecified; E87.6 Hypokalemia; D63.1 Anemia in chronic kidney disease; C53.9 Malignant neoplasm of cervix uteri, unspecified; I12.9 Hypertensive chronic kidney disease with stage 1 through stage 4 chronic kidney disease, or unspecified chronic kidney disease; N18.30 Chronic kidney disease, stage 3 unspecified; I25.2 Old myocardial infarction; W18.30XA Fall on same level, unspecified, initial encounter; Z86.718 Personal history of other venous thrombosis and embolism; Z88.1 Allergy status to other antibiotic agents; Z95.5 Presence of coronary angioplasty implant and graft; Z79.82 Long term (current) use of aspirin; Z79.02 Long term (current) use of antithrombotics/antiplatelets; Z79.899 Other long term (current) drug therapy; Z85.41 Personal history of malignant neoplasm of cervix uteri; Z20.822 Contact with and (suspected) exposure to COVID-19
CPT/HCPCS: 36415; 74176; 76377; 76770; 80053; 80069; 81001; 81240; 81241; 82570; 82607; 82728; 82746; 83520; 83540; 83735; 84156; 84165; 84466; 85025; 85302; 85610; 86021; 86038; 86160; 86225; 86317; 86706; 87086; 87088; 87340; 87389; 87522; 93005; 93971; 96372; 97112; 97116; 97161; 97530; 99285; J1650; J3480; U0003

== ENCOUNTER 2020-07-25 10:17 | Emergency (ER) | payer OTHER ==
--- OUTSIDE RECORDS SUMMARY | 2020-07-25 10:19 | XMS REPORT | Continuity of Care Document ---
:1945 Author Organization [facility] t Address [address] [place] [address] Care Team Providers Name Role Phone Carmela [...] Clinicians Facility Department ID 2020-04-14 Outpatient SYSTEM, [facility] [id number] 10:40:33 PROVIDER Alexandro welch 2020-04-30 2020-04-30 Orders Doctor PEDRO [id number] 00:00:00 00:00:00 Only UnassDAHIANA yuan [id number] [place] [facility] [id number] 2020-04-16 2020-04-16 Letter Padmaja Mcintyre [id number] 00:00:00 00:00:00 (Out) Jeyson Rivera [id number] [facility] [id number] 2020-04-16 2020-04-16 Orders Doctor WILLIS [id number] 00:00:00 00:00:00 Only Unassigned, DAHIANA [id number] [place] [facility] [id number] 2020-04-13 2020-04-13 Telephone EVELYN Mcintyre [id number] 00:00:00 00:00:00 [employer] [id number] [facility] [id number] 2020-04-09 2020-04-09 Transition Irineo Gaonarebekah [id number] 00:00:00 00:00:00 of Care Matt Holland [id number] [place] [id number] 2020-04-09 2020-04-09 Telephone EVELYN Mcintyre [id number] 00:00:00 00:00:00 [employer] [id number] [facility] [id number] Results This patient has no known results.
[2020-07-25 10:59] LABS: Absolute Lymphocytes (CBC) 1.2 K/uL (0.7-4.9); Basophils % 0.3 % (0-1.3); Hematocrit 30.4 % (36.0-45.0); Lymphocytes % 5.6 % (15.3-44.8); MPV 8.5 fL (7.6-11.3); RBC Red Blood Cell Count 3.45 M/uL (3.86-4.86)
[2020-07-25 11:02] LABS: Protime INR 1.16
[2020-07-25] MEDS ORDERED: MAGNES/ALUMIN/SIMET 30ML UCUP ONE (11:03)
[2020-07-25] MEDS ORDERED: ONDANSETRON 4 MG/2 ML VIAL ONE (11:03)
[2020-07-25] MEDS ORDERED: DIPHENHYDRAMINE 50 MG/ML VIAL ONE (11:03)
[2020-07-25] MEDS ORDERED: MORPHINE 4 MG/ML SYR ONE (11:03)
[2020-07-25] MEDS ORDERED: NA CHLORIDE 0.9% 100 ML ONE (11:04)
[2020-07-25] MEDS ORDERED: NA CHLORIDE 0.9% 1,000 ML ONE (11:04)
[2020-07-25] MEDS ORDERED: LIDOCAINE VISCOUS 2% SOLN 15 ML UDC ONE (11:04)
[2020-07-25 11:19] LABS: Albumin 2.9 g/dL (3.4-5.0); Bilirubin Direct 0.2 mg/dL (0-0.2); Bilirubin Total 0.5 mg/dL (0.2-1.0); Magnesium 1.9 mg/dL (1.8-2.4); Potassium 3.1 mmol/L (3.5-5.1); Troponin (Emerg Dept Use Only) 0.03 ng/mL (0.0-0.045)
--- NOTE | 2020-07-25 11:34 | RAD REPORT ---
EXAM DESCRIPTION: CT - Thorax Wo Con - 07/25/2020 11:23 am CLINICAL HISTORY: CHEST PAIN COMPARISON: Chest Single View dated 07/25/2020; Stone Protocol dated 07/21/2020 TECHNIQUE: Axial 5 mm thick images of the chest were obtained without IV contrast. All CT scans are performed using dose optimization technique as appropriate and may include automated exposure control or mA/KV adjustment according to patient size. FINDINGS: Increased interstitial opacification present with a few scattered alveolar opacities in th e lung parenchyma. Patient has small bilateral pleural effusions with trace amount of atelectasis in each posterior lower lobe. No one mass or consolidations seen. No endobronchial lesion. No pleural th ickening or pleural based mass. No pneumothorax. No abnormal mediastinal or hilar masses or lymphadenopathy seen. A few small nonspecific mediastinal lymph nodes are present. CABG surgical changes are noted. Dense coronary artery calcifications are se en. Aorta and pulmonary artery assessment are limited in the absence of contrast. Mild cardiomegaly i s present without pericardial effusion. No chest wall mass or abnormal axillary lymphadenopathy. Mild fluid retention in the subcutaneous fat ty tissues. Limited upper abdomen imaging shows minimal ascites adjacent to the liver. There is significant hydro nephrosis of a partially imaged left kidney. Right adrenal mass is present. These are all stable find ings over the short interval since July 21. IMPRESSION: Chest findings detailed above are most consistent with a mild CHF or volume overload. No focal consolidation to suspect bacterial pneumonia. Lung parenchymal findings are potentially manjit l infiltrate if there are matching clinical findings. Chest findings do not elevate concern for COVID -19 pneumonia.
--- NOTE | 2020-07-25 11:35 | RAD REPORT ---
EXAM DESCRIPTION: RAD - Chest Single View - 07/25/2020 11:03 am CLINICAL HISTORY: CHEST PAIN COMPARISON: Portable July 10 TECHNIQUE: AP portable chest image was obtained 07/25/2020 11:03 am . FINDINGS: No focal mass consolidation. Increased interstitial opacification is present only partiall y due to a more shallow inspiratory effort. Interstitial edema or infiltrate are suspected. Minimal a lveolar opacities are present. Mild cardiomegaly is present. Vasculature is mildly prominent. Sternot rj wires are in place from prior CABG. No measurable pleural effusion and no pneumothorax. No acute bony abnormality seen. No acute aortic findings suspected. IMPRESSION: Mild CHF/volume overload suspected and can be correlated with clinical presentation. Viral infiltrate or noncardiogenic edema etiologies are possible as well.
[2020-07-25 12:01] LABS: Blood Morphology Comment NOT SEEN (NOT SEEN); Platelet Estimate ADEQ
[2020-07-25] MEDS ORDERED: CEFTRIAXONE/SWI 1gm 1 GM/10 ML SYR ONE (13:50)
--- NOTE | 2020-07-25 15:02 | ER ---
Nurse's Notes [facility] Name: Meena Gandhi Age: 75 yrs Sex: Female : 1945 Arrival Date: 07/25/2020 Time: 10:19 Bed 17 Private MD: Diagnosis: Non-ST elevation (NSTEMI) myocardial infarction;Acute combined systolic (congestive) and diastolic (congestive) heart failure;Sepsis, unspecified organism Presentation: 07/25 10:22 Chief complaint: EMS states: Mid-sternal CP started last night, Nitro x 3 at the [facility] alf and x 2 by EMS, no relief, Asprin held due to gastric ulcers. Pt suppose to be to taking Ranolazine for angina but it's on back order for a couple weeks. Pt has not had any home medications this morning. Coronavirus screen: Client denies travel out of the [place] in the last 14 days. At this time, the client does not indicate any symptoms associated with coronavirus-19. Ebola Screen: No symptoms or risks identified at this time. Initial Sepsis Screen: Does the patient meet any 2 criteria? No. Patient's initial sepsis screen is negative. Does the patient have a suspected source of infection? No. Patient's initial sepsis screen is negative. Risk Assessment: Do you want to hurt yourself or someone else? Patient reports no desire to harm self or others. Onset of symptoms was July 24, 2020. Care prior to arrival: Medication(s) given: Nitro IV initiated. 20 GA, in the right forearm. Transition of care: patient was received from another setting of care (long-term care facility), [facility]. 10:22 Method Of Arrival: EMS: [place] [id number] 10:22 Acuity: MIGUELITO 2 [facility] Triage Assessment: 10:29 General: Appears in no apparent distress. uncomfortable, Behavior is cooperative, [facility] anxious. Pain: Complains of pain in mid-sternal area Pain does not radiate. Pain currently is 10 out of 10 on a pain scale. Quality of pain is described as crushing, Pain began 1 day ago. Is continuous. Neuro: Level of Consciousness is awake, alert, obeys commands, Oriented to person, place, time, situation. Cardiovascular: Heart tones S1 S2 present Patient's skin is warm and dry. Respiratory: Airway is patent Respiratory effort is even, unlabored, Respiratory pattern is regular, symmetrical, Breath sounds are clear bilaterally. Derm: Skin is pink, warm \\T\\ dry. Historical: - Allergies: 10: Iodine; jl7 10: Sulfa (Sulfonamide Antibiotics); jl7 - Home Meds: 10: metoprolol tartrate 50 mg oral tab 1 tab 2 times per day [Active]; Plavix 75 mg Oral jl7 tab 1 tab once daily [Active]; aspirin 81 mg oral TbEC 1 tab once daily [Active]; enoxaparin 40 mg/0.4 mL subcutaneous syrg every 12 hours [Active]; ranolazine oral oral 1 tab 2 times per day [Active]; - PMHx: 10: Diabetes - NIDDM; DVT; Hypertension; Myocardial infarction; jl7 - PSHx: : CABG; cardiac stents; jl7 - Immunization history:: Adult Immunizations up to date. - Social history:: Smoking status: Patient denies any tobacco usage or history of. Patient/guardian denies using alcohol, street drugs, The patient lives with family. - Family history:: not pertinent. Screenin:30 Abuse screen: Denies threats or abuse. Denies injuries from another. Nutritional jl7 screening: No deficits noted. Tuberculosis screening: No symptoms or risk factors identified. Fall Risk IV access (20 points). Total Hubbard Fall Scale indicates No Risk (0-24 pts). Assessment: 10:30 General: See triage assessment. jl7 12:30 Reassessment: Pt' O2 sats reading 86%, placed pt on 2 lpm per NC, O2 up to 94%. jl7 13:30 Reassessment: Spoke to Hailey, pt's daughter , who reports pt is aware that jl7 if she does not have this procedure she will , they were told the last time she was here that if she didn't have the procedure she would need to be on Hospice. Hailey requesting for pt to be kept here for SS consult to initiate Hospice and get her to a long-term care facility. ERD notified, will speak to family. 14:30 Reassessment: Pt's O2 at 72%, pt removed NC and states "I can't breathe with that thing jl7 in." O2 turned up to 4 lpm and NC placed back in nose, ERD notified and at bedside. Pt keeps taking NC out of nose, sats continue to fluctuate between 78 - 90%, pt keeps saying "I can't breathe." BiPap ordered. 14:50 Reassessment: RT at bedside with BiPap. [facility] 15:00 Reassessment: Pt refusing to keep BiPap on, non-rebreather placed on pt at this time. [facility] 15:20 Reassessment: Spoke to Theresa Giordano RN at [facility] with updated POC, pt requesting [facility] hospice and DNR status. 16:18 Reassessment: Pt reports she does not want to be DNR/DNI, she wants everything done to [facility] save her life. Pt continues to refuse transfer to another facility for treatment, wants to return to alf. Updated JOELLE Cardenas with [facility] and she reports daughter set up Hospice with [facility], they are getting O2 setup and will call ER once they get transportation setup. 18:09 Reassessment: Spoke with Brook from [facility], once the O2 is delivered to [address] will update with a transport time. 19:17 Reassessment: JOELLE Pardo with [facility] at bedside to assess pt. [facility] 19:24 Reassessment: Per Char MALAGON RN, Pt will be hot die picker at 22:30 to go back to [facility]. Pain: Denies pain. 21:00 Reassessment: Patient appears in no apparent distress at this time. Patient and/or wh family updated on plan of care and expected duration. Pain level reassessed. Pt sleeping eyes closed. Pain: Denies pain. 22:40 Reassessment: Patient appears in no apparent distress at this time. Patient and/or wh family updated on plan of care and expected duration. Pain level reassessed. Vital Signs: 10:22 BP 166 / 103; Pulse 97; Resp 21; Temp 97.6; Pulse Ox 98% ; Pain 10/10; jl7 11:00 BP 177 / 90; Pulse 95; Resp 19; Pulse Ox 98% ; jl7 12:30 BP 158 / 89; Pulse 94; Resp 19; Pulse Ox 85% ; jl7 13:15 BP 168 / 96; Pulse 94; Resp 17 S; Pulse Ox 92% on 2 lpm NC; jl7 13:42 BP 157 / 95; Pulse 117; Resp 19; Pulse Ox 98% ; jl7 14:00 BP 98 / 88; Pulse 123; Resp 23; Pulse Ox 92% ; jl7 14:30 Pulse Ox 74% on R/A; jl7 14:35 Pulse Ox 91% on 4 lpm NC; jl7 15:20 BP 121 / 74; Pulse 123; Resp 20; Pulse Ox 96% ; jl7 16:00 BP 106 / 73; Pulse 113; Resp 24; Pulse Ox 96% on Non-rebreather mask; jl7 17:45 BP 108 / 67; Pulse 105; Resp 22; Pulse Ox 99% on Non-rebreather mask; jl7 19:25 BP 109 / 70; Pulse 102; Resp 22; Pulse Ox 94% on Non-rebreather mask; wh 21:00 BP 102 / 58; Pulse 98; Resp 20; Pulse Ox 93% on Non-rebreather mask; 22:45 BP 108 / 60; Pulse 107; Resp 20; Pulse Ox 95% on Non-rebreather mask; ED Course: 10:19 Patient arrived in ED. ds1 10:21 Noemi Hale MD is Attending Physician. ma2 10:22 Evan Ravi RN is Primary Nurse. jl7 10:26 Triage completed. jl7 10:29 Arm band placed on right wrist. jl7 10:30 Patient has correct armband on for positive identification. Placed in gown. Bed in low jl7 position. Call light in reach. Side rails up X 1. lag screwer on. Pulse ox on. NIBP on. Warm blanket given. 10:30 Patient maintains SpO2 saturation greater than 95% on room air. jl7 10:32 EKG done, by ED staff, reviewed by Noemi Hale MD. em1 10:55 Initial lab(s) drawn, by ED staff, sent to lab. Inserted saline lock: 22 gauge in right jl7 hand, using aseptic technique. Blood collected. 11:03 XRAY Chest (1 view) In Process Unspecified. EDMS 11:18 Inserted saline lock: 20 gauge in left forearm, using aseptic technique. jl7 11:22 Thorax Wo Con In Process Unspecified. EDMS 12:56 Repeat lab(s) drawn. by me, sent to lab. jp3 13:59 Lab(s) recollected, by me, sent to lab. jp3 14:00 Warm blanket given. Verbal reassurance given. Diet: Patient given water. Tolerated well.jp3 19:42 Primary Nurse role handed off by Evan Ravi, RN mw2 22:46 No provider procedures requiring assistance completed. IV discontinued, intact, wh bleeding controlled, No redness/swelling at site. Administered Medications: 11:00 Drug: Zofran (Ondansetron) 4 mg Route: IVP; Site: right hand; jl7 13:39 Follow up: Response: No adverse reaction jl7 11:00 Drug: NS 0.9% 1000 ml Route: IV; Rate: 1 bolus; Site: right hand; jl7 12:00 Follow up: IV Status: Completed infusion; IV Intake: 1000ml jl7 11:00 Drug: GI Cocktail without - (Maalox Suspension 30 ml, Lidocaine Liquid 2 % 15 jl7 ml) Route: PO; 11:30 Follow up: Response: No adverse reaction jl7 11:05 Drug: morphine 4 mg Route: IVP; Site: right hand; jl7 11:30 Follow up: Response: No adverse reaction; Pain is decreased jl7 11:13 Drug: Benadryl 50 mg Route: IVP; Site: right hand; jl7 13:39 Follow up: Response: No adverse reaction jl7 13:39 Drug: Rocephin 1 grams Route: IV; Rate: calculated rate; Site: right hand; jl7 13:42 Follow up: Response: No adverse reaction; IV Status: Completed infusion jl7 Intake: 12:00 IV: 1000ml; Total: 1000ml. jl7 Outcome: 15:01 Discharge ordered by . mo2 22:47 Discharged to alf. Report given to [facility] 22:47 Condition: stable 22:47 Instructed on follow up and referral plans. 22:48 Patient left the ED. Signatures: Dispatcher [employer] EDIL Merari Castro1 Thor King em1 Evan Ravi, JOELLE LAI jl7 Ortiz Morgan RN RN Noemi Hale MD MD ma2 [place], MyKena mw2 Alejandro Sawant jp3 Corrections: (The following items were deleted from the chart) 19:23 19:17 Reassessment: JOELLE Pardo with [facility] at bedside to assess pt jl7 jl7
--- NOTE | 2020-07-25 15:02 | EDPHYS ---
Physician Documentation [facility] Name: Meena Gandhi Age: 75 yrs Sex: Female : 1945 Arrival Date: 07/25/2020 Time: 10:19 Bed 17 Private MD: ED Physician Noemi Hale HPI: 07/25 10:47 This 75 yrs old Female presents to ER via EMS with complaints of Chest Pain. ma2 10:47 The patient or guardian reports chest pain that is located primarily in the substernal ma2 area. Onset: gradually, 2 day(s) ago. Associated signs and symptoms: Pertinent negatives: cough, dizziness, lower extremity pain, lightheadedness. Severity of pain: At its worst the pain was moderate in the emergency department the pain is unchanged. The patient has experienced similar episodes in the past. Historical: - Allergies: 10: Iodine; jl7 10:29 Sulfa (Sulfonamide Antibiotics); jl7 - Home Meds: 10: metoprolol tartrate 50 mg oral tab 1 tab 2 times per day [Active]; Plavix 75 mg Oral jl7 tab 1 tab once daily [Active]; aspirin 81 mg oral TbEC 1 tab once daily [Active]; enoxaparin 40 mg/0.4 mL subcutaneous syrg every 12 hours [Active]; ranolazine oral oral 1 tab 2 times per day [Active]; - PMHx: 10:29 Diabetes - NIDDM; DVT; Hypertension; Myocardial infarction; jl7 - PSHx: 10:29 CABG; cardiac stents; jl7 - Immunization history:: Adult Immunizations up to date. - Social history:: Smoking status: Patient denies any tobacco usage or history of. Patient/guardian denies using alcohol, street drugs, The patient lives with family. - Family history:: not pertinent. ROS: 10:47 Constitutional: Negative for fever, chills, and weight loss. ma2 10:47 All other systems are negative. Exam: 10:47 Constitutional: This is a well developed, well nourished patient who is awake, alert, ma2 and in no acute distress. Chest/axilla: Normal chest wall appearance and motion. Nontender with no deformity. No lesions are appreciated. Cardiovascular: Regular rate and rhythm with a normal S1 and S2. No gallops, murmurs, or rubs. Normal PMI, no JVD. No pulse deficits. Respiratory: Lungs have equal breath sounds bilaterally, clear to auscultation and percussion. No rales, rhonchi or wheezes noted. No increased work of breathing, no retractions or nasal flaring. Abdomen/GI: Soft, non-tender, with normal bowel sounds. No distension or tympany. No guarding or rebound. No evidence of tenderness throughout. MS/ Extremity: Pulses equal, no cyanosis. Neurovascular intact. Full, normal range of motion. Neuro: Awake and alert, GCS 15, oriented to person, place, time, and situation. Cranial nerves II-XII grossly intact. Motor strength 5/5 in all extremities. Sensory grossly intact. Cerebellar exam normal. Normal gait. Vital Signs: 10:22 BP 166 / 103; Pulse 97; Resp 21; Temp 97.6; Pulse Ox 98% ; Pain 10/10; jl7 11:00 BP 177 / 90; Pulse 95; Resp 19; Pulse Ox 98% ; jl7 12:30 BP 158 / 89; Pulse 94; Resp 19; Pulse Ox 85% ; jl7 13:15 BP 168 / 96; Pulse 94; Resp 17 S; Pulse Ox 92% on 2 lpm NC; jl7 13:42 BP 157 / 95; Pulse 117; Resp 19; Pulse Ox 98% ; jl7 14:00 BP 98 / 88; Pulse 123; Resp 23; Pulse Ox 92% ; jl7 14:30 Pulse Ox 74% on R/A; jl7 14:35 Pulse Ox 91% on 4 lpm NC; jl7 15:20 BP 121 / 74; Pulse 123; Resp 20; Pulse Ox 96% ; jl7 16:00 BP 106 / 73; Pulse 113; Resp 24; Pulse Ox 96% on Non-rebreather mask; jl7 17:45 BP 108 / 67; Pulse 105; Resp 22; Pulse Ox 99% on Non-rebreather mask; jl7 19:25 BP 109 / 70; Pulse 102; Resp 22; Pulse Ox 94% on Non-rebreather mask; wh 21:00 BP 102 / 58; Pulse 98; Resp 20; Pulse Ox 93% on Non-rebreather mask; wh 22:45 BP 108 / 60; Pulse 107; Resp 20; Pulse Ox 95% on Non-rebreather mask; wh MDM: 10:21 Patient medically screened. ma2 12:33 Differential diagnosis: abnormal EKG, gastroesophageal reflux disease (GERD), ma2 pericarditis, pleurisy, stable angina. HEART Score: History: Moderately Suspicious (1), ECG: Non specific repolarization disturbance / LBTB / PM (1), Age: > or = 65 years (2), Risk Factors: > or = 3 Risk factors for atherosclerotic disease (2), Troponin: < or = 1 x Normal Limit (0), Total Score = 5. The patient was not given aspirin in the Emergency Department. Administered by EMS. DELLA Risk Score: 1 - patient's age is greater or equal to 65 years. 12:36 ED course: discussed with dr. de hospitalist who is familiar with her and he just ma2 discharged her yesterday for chest pain, her ekg today is unremarkable and showing st depression. her trop is negative.. her wbc is elevated to 20 K and was elevated before.. dr. de is familiar with this patient, she had CABG and CATH a week ago and has been having chest pain while in the hospital.. her chest pain is unchanged and at rest.. no chest pain in the last hour in the er.. the main issue is she has cancer and bilateral hydronephrosis. she needs nephrostomy tube.. she was offered to be transferred to [facility] for cancer treatment and nephrosotomy tube, she declined that. she is being treated with levaquine, her wbc is 20K today. dr. de evaluated the patient in the er.. i agree with plan . 14:53 ED course: patient has mild elevation in troponin 0.35. her repeated EKG showing st ma2 depression. she could be having thrombosis of her cardiac stent.. patient now has shortness of breath and hypoxemia, her sats are on 75, rr is 50 and HR is 130,, she is likely having DE, acute CHF and possible sepsis from her hydronephrosis, I discussed with her again if she agree to be transferred emergency to [facility] for higher level of care and where she can also pursue treatment for her esophageal cancer. She does not want any medical care at this time does not want to be transferred, she states she want Hospice, I called and discussed the case again. dr. De discussed with dr. Tovar as well. I called the patient daughter, REGAN, and she confirm and states that after talking to her mom, her mom want to pursue hospice. [facility] and hospice will be arranged from there . 15:02 Data reviewed: vital signs, nurses notes, EMS record, [facility] records. Counseling: lisa I had a detailed discussion with the patient and/or guardian regarding: the historical points, exam findings, and any diagnostic results supporting the discharge/admit diagnosis, the presence of at least one elevated blood pressure reading (>120/80) during this emergency department visit, the need to transfer to another facility. 15:10 ED course: I discussed code status with the patient and she wants DNR DNI. ED course: lisa patient now states she want a full code she does want intubation and CPR if needed !!!. 07/25 10:22 Order name: Basic Metabolic Panel [facility] 07/25 10:22 Order name: CBC with Diff [facility] 07/25 10:22 Order name: LFT's [facility] 07/25 10:22 Order name: Magnesium [facility] 07/25 10:22 Order name: NT PRO-BNP; Complete Time: 11:54 [facility] 07/25 10:22 Order name: PT-INR; Complete Time: 11:03 [facility] 07/25 10:22 Order name: Troponin (emerg Dept Use Only); Complete Time: 11:54 tx07/25 10:22 Order name: XRAY Chest (1 view); Complete Time: 11:54 [facility] 07/25 10:24 Order name: Basic Metabolic Panel; Complete Time: 11:54 [facility] 07/25 10:24 Order name: CBC with Automated Diff; Complete Time: 12:32 07/25 10:24 Order name: Liver (Hepatic) Function; Complete Time: 11:54 [facility] 07/25 10:24 Order name: Magnesium; Complete Time: 11:54 [facility] 07/25 11:02 Order name: Manual Differential; Complete Time: 12:32 [facility] 07/25 12:35 Order name: Troponin (emerg Dept Use Only); Complete Time: 14:52 [facility] 07/25 10:22 Order name: EKG; Complete Time: 10:24 [facility] 07/25 10:22 Order name: Cardiac monitoring; Complete Time: 10:45 tx2 07/25 10:22 Order name: EKG - Nurse/Tech; Complete Time: 10:31 ma2 07/25 10:22 Order name: IV Saline Lock; Complete Time: 10:45 ma2 07/25 10:22 Order name: Labs collected and sent; Complete Time: 10:45 tx2 07/25 10:22 Order name: O2 Per Protocol; Complete Time: 10:45 tx2 07/25 10:22 Order name: O2 Sat Monitoring; Complete Time: 10:45 tx2 07/25 11:07 Order name: Thorax Wo Con; Complete Time: 11:54 EDMS 07/25 13:06 Order name: Labs - recollect needed: recollect the trop/ clotted; Complete Time: 14:00 eb Administered Medications: 11:00 Drug: Zofran (Ondansetron) 4 mg Route: IVP; Site: right hand; jl7 13:39 Follow up: Response: No adverse reaction jl7 11:00 Drug: NS 0.9% 1000 ml Route: IV; Rate: 1 bolus; Site: right hand; jl7 12:00 Follow up: IV Status: Completed infusion; IV Intake: 1000ml jl7 11:00 Drug: GI Cocktail without - (Maalox Suspension 30 ml, Lidocaine Liquid 2 % 15 jl7 ml) Route: PO; 11:30 Follow up: Response: No adverse reaction jl7 11:05 Drug: morphine 4 mg Route: IVP; Site: right hand; jl7 11:30 Follow up: Response: No adverse reaction; Pain is decreased jl7 11:13 Drug: Benadryl 50 mg Route: IVP; Site: right hand; jl7 13:39 Follow up: Response: No adverse reaction jl7 13:39 Drug: Rocephin 1 grams Route: IV; Rate: calculated rate; Site: right hand; jl7 13:42 Follow up: Response: No adverse reaction; IV Status: Completed infusion jl7 Disposition: 07/25/20 15:01 Discharged to Home. Impression: Non-ST elevation (NSTEMI) myocardial infarction, Acute combined systolic (congestive) and diastolic (congestive) heart failure, Sepsis, unspecified organism. - Condition is Stable. - Discharge Instructions: Heart Attack. - Medication Reconciliation Form, Thank You Letter, Antibiotic Education, Prescription Opioid Use, SBAR form form. - Follow up: Private Physician; When: Tomorrow; Reason: Continuance of care. Signatures: Dispatcher [employer] EDEvan Montes RN RN jl7 Ortiz Morgan RN RN Noemi Hale MD MD ma2 Ruba Howard Corrections: (The following items were deleted from the chart) 11:07 10:37 Chest For PE Angio+CT.RAD.BRZ ordered. [facility] 12:49 12:36 ED course: discussed with dr. de hospitalist who is familiar with her and he ma2 just discharged her yesterday for chest pain, her ekg today is unremarkable lab is all non critical although her . [facility] 16:15 15:10 ED course: DNR DNR DNR DNR DNR !!!!!!!!!!!!!!!!!!. tx2 [facility] 22:48 15:01 07/25/2020 15:01 Discharged to Home. Impression: Non-ST elevation (NSTEMI) wh myocardial infarction; Acute combined systolic (congestive) and diastolic (congestive) heart failure; Sepsis, unspecified organism. Condition is Stable. Forms are Medication Reconciliation Form, Thank You Letter, Antibiotic Education, Prescription Opioid Use. Follow up: Private Physician; When: Tomorrow; Reason: Continuance of care. ma2
--- NOTE | 2020-07-25 15:38 | P.CNS ---
Date of Consult: 07/25/20 Patient presented to the emergency department with complaint of chest pain. Initial troponin is negative. CT chest reported pleural effusion. Blood work: WBC: 20,000. The ED physician was considering hospitalization for chest pain rule out. I discuss case with Dr. Tovar recommended no further cardiac surgical intervention. He recommended to increase her Ranexa dose to 1000 mg b.i.d. Patient with leukocytosis, prior history of UTI which was being treated with oral Levaquin. Given that patient has bilateral moderate to severe hydronephrosis secondary to extrinsic compression of bilateral ureters. I again recommended transfer to [facility] for nephrostomy to decompress her kidneys. This was communicated to the ED Physician. The ED physician's note reviewed and noted patient wants to pursue hospice.
[2020-07-25 23:02] VITALS: TEMP 97.6
[2020-07-25 23:18] VITALS: BP 108/60; O2SAT 95
== END 2020-07-25 22:48 | disposition home or self-care (01) ==
LOC: ER 10:17
DX: I21.4 Non-ST elevation (NSTEMI) myocardial infarction (principal); A41.9 Sepsis, unspecified organism; I50.41 Acute combined systolic (congestive) and diastolic (congestive) heart failure; I25.2 Old myocardial infarction; I11.0 Hypertensive heart disease with heart failure; C53.9 Malignant neoplasm of cervix uteri, unspecified; N13.30 Unspecified hydronephrosis; Z95.1 Presence of aortocoronary bypass graft
CPT/HCPCS: 96361; 93005; 85025; 80048; 36415; 83735; 85610; 80076; 84484 ×2; 83880; 71250; 71045; 96375; 96374; 99285; J1200; J0696; J7030; J2405

== ENCOUNTER 2020-08-11 02:48 | Emergency (ER) | payer OTHER ==
--- OUTSIDE RECORDS SUMMARY | 2020-08-11 02:50 | XMS REPORT | Continuity of Care Document ---
:1945 Author Organization [facility] t Address [address] [place] [address] Care Team Providers Name Role Phone Carmela [...] Clinicians Facility Department ID 2020-04-14 Outpatient SYSTEM, [facility] [id number] 10:40:33 PROVIDER Alexandro welch 2020-04-30 2020-04-30 Orders Doctor PEDRO [id number] 00:00:00 00:00:00 Only UnassDAHIANA yuan [id number] [place] [facility] [id number] 2020-04-16 2020-04-16 Letter Padmaja Mcintyre [id number] 00:00:00 00:00:00 (Out) Jeyson Rivera [id number] [facility] [id number] 2020-04-16 2020-04-16 Orders Doctor WILLIS [id number] 00:00:00 00:00:00 Only Unassigned, DAHIANA [id number] [place] [facility] [id number] 2020-04-13 2020-04-13 Telephone EVELYN Mcintyre [id number] 00:00:00 00:00:00 [employer] [employer] [id number] [facility] [id number] 2020-04-09 2020-04-09 Transition Irineo Gaonarebekah [id number] 00:00:00 00:00:00 of Care Matt Holland [id number] [place] [id number] 2020-04-09 2020-04-09 Telephone EVELYN Mcintyre [id number] 00:00:00 00:00:00 [employer] [id number] [facility] [id number] Results This patient has no known results.
[2020-08-11 03:51] LABS: Absolute Lymphocytes (CBC) 0.7 K/uL (0.7-4.9); Basophils % 0.5 % (0-1.3); Hematocrit 30.6 % (36.0-45.0); Lymphocytes % 3.3 % (15.3-44.8); MPV 8.4 fL (7.6-11.3); RBC Red Blood Cell Count 3.45 M/uL (3.86-4.86)
[2020-08-11 03:52] LABS: Protime INR 1.01
[2020-08-11] MEDS ORDERED: NA CHLORIDE 0.9% 1,000 ML ONE (04:10)
[2020-08-11 04:58] LABS: Albumin 2.3 g/dL (3.4-5.0); Bilirubin Direct 0.2 mg/dL (0-0.2); Bilirubin Total 0.5 mg/dL (0.2-1.0); Potassium 3.6 mmol/L (3.5-5.1); Protein, Total 6.3 g/dL (6.4-8.2); Troponin (Emerg Dept Use Only) 0.15 ng/mL (0.0-0.045)
[2020-08-11 05:20] LABS: Blood Morphology Comment NOT SEEN (NOT SEEN); Platelet Estimate ADEQ
--- NOTE | 2020-08-11 05:56 | EDPHYS ---
Physician Documentation [facility] Name: Meena Gandhi Age: 75 yrs Sex: Female : 1945 Arrival Date: 08/11/2020 Time: 02:49 Bed 30 Private MD: ED Physician Steven Arceo HPI: 08/11 05:47 This 75 yrs old Female presents to ER via EMS with complaints of Shortness Of pritesh Breath. 05:47 The patient has shortness of breath at rest, with light activity. Onset: The pritesh symptoms/episode began/occurred 2 day(s) ago. Duration: The symptoms are continuous, and are steadily getting worse. The patient's shortness of breath is aggravated by nothing, is alleviated by nothing. Associated signs and symptoms: Pertinent positives: chest pain, non-productive cough. Severity of symptoms: At their worst the symptoms were moderate in the emergency department the symptoms have improved mildly. The patient has experienced similar episodes in the past, several times. Historical: - Allergies: 02:54 Iodine; em 02:54 Sulfa (Sulfonamide Antibiotics); em - Home Meds: 02:54 aspirin 81 mg Oral TbEC 1 tab once daily [Active]; enoxaparin 40 mg/0.4 mL subcutaneous em syrg every 12 hours [Active]; metoprolol tartrate 50 mg Oral tab 1 tab 2 times per day [Active]; Plavix 75 mg Oral tab 1 tab once daily [Active]; ranolazine Oral 1 tab 2 times per day [Active]; - PMHx: 02:54 Diabetes - NIDDM; DVT; Hypertension; Myocardial infarction; em - PSHx: 02:54 CABG; em - Immunization history:: Adult Immunizations up to date. - Social history:: Smoking status: Patient denies any tobacco usage or history of. ROS: 05:49 Constitutional: Negative for fever, chills, and weight loss, Eyes: Negative for injury, pritesh pain, redness, and discharge, ENT: Negative for injury, pain, and discharge, Neck: Negative for injury, pain, and swelling, Abdomen/GI: Negative for abdominal pain, nausea, vomiting, diarrhea, and constipation, Back: Negative for injury and pain, : Negative for injury, bleeding, discharge, and swelling, MS/Extremity: Negative for injury and deformity, Neuro: Negative for headache, weakness, numbness, tingling, and seizure, Psych: Negative for depression, anxiety, suicide ideation, homicidal ideation, and hallucinations, Allergy/Immunology: Negative for hives, rash, and allergies, Endocrine: Negative for neck swelling, polydipsia, polyuria, polyphagia, and marked weight changes, Hematologic/Lymphatic: Negative for swollen nodes, abnormal bleeding, and unusual bruising. 05:49 Cardiovascular: Positive for chest pain, orthopnea, palpitations. 05:49 Respiratory: Positive for cough, shortness of breath, at rest. 05:49 Skin: Positive for pallor. 05:49 Neuro: Positive for weakness. Exam: 05:49 Constitutional: This is a well developed, well nourished patient who is awake, alert, pritesh and in no acute distress. Head/Face: Normocephalic, atraumatic. Eyes: Pupils equal round and reactive to light, extra-ocular motions intact. Lids and lashes normal. Conjunctiva and sclera are non-icteric and not injected. Cornea within normal limits. Periorbital areas with no swelling, redness, or edema. ENT: Nares patent. No nasal discharge, no septal abnormalities noted. Tympanic membranes are normal and external auditory canals are clear. Oropharynx with no redness, swelling, or masses, exudates, or evidence of obstruction, uvula midline. Mucous membranes moist. Neck: Trachea midline, no thyromegaly or masses palpated, and no cervical lymphadenopathy. Supple, full range of motion without nuchal rigidity, or vertebral point tenderness. No Meningismus. Chest/axilla: Normal chest wall appearance and motion. Nontender with no deformity. No lesions are appreciated. Abdomen/GI: Soft, non-tender, with normal bowel sounds. No distension or tympany. No guarding or rebound. No evidence of tenderness throughout. Back: No spinal tenderness. No costovertebral tenderness. Full range of motion. Female : Normal external genitalia. MS/ Extremity: Pulses equal, no cyanosis. Neurovascular intact. Full, normal range of motion. Neuro: Awake and alert, GCS 15, oriented to person, place, time, and situation. Cranial nerves II-XII grossly intact. Motor strength 5/5 in all extremities. Sensory grossly intact. Cerebellar exam normal. Normal gait. Psych: Awake, alert, with orientation to person, place and time. Behavior, mood, and affect are within normal limits. 05:49 Cardiovascular: Rate: normal, Rhythm: regular, Pulses: Pulses are 3+ in bilateral radial, brachial, femoral, popliteal, posterior tibial and and dorsalis pedis arteries.. Edema: 1+ edema to level of left midcalf and right midcalf, JVD: is noted bilaterally, to 2 cm. 05:49 ECG was reviewed by the Attending Physician. Vital Signs: 02:50 BP 150 / 80; Pulse 87; Resp 18; Temp 98.1; Pulse Ox 96% on 3 lpm NC; Weight 45.36 kg; em Height 5 ft. 0 in. (152.40 cm); Pain 4/10; 04:00 BP 155 / 84; Pulse 87; Resp 19; Pulse Ox 95% on 2 lpm NC; rr5 05:00 BP 135 / 74; Pulse 80; Resp 24; Pulse Ox 95% on 3 lpm NC; rr5 06:00 BP 132 / 85; Pulse 89; Resp 23; Pulse Ox 95% on 3 lpm NC; rr5 06:15 BP 102 / 32; Pulse 50; Resp 10; Pulse Ox 70% ; ea 06:40 Pulse 0; Resp 0; Pulse Ox 0% ; ea 02:50 Body Mass Index 19.53 (45.36 kg, 152.40 cm) em MDM: 03:15 Patient medically screened. pritesh 05:59 Differential diagnosis: Anemia CHF exacerbation, abnormal EKG, acute pericarditis, pritesh congestive heart failure costochondritis, Myocardial Infarction Pulmonary Embolism Unstable Angina. Antibiotic administration: zosyn . HEART Score: History: Moderately Suspicious (1), ECG: Non specific repolarization disturbance / LBTB / PM (1), Age: > or = 65 years (2), Risk Factors: > or = 3 Risk factors for atherosclerotic disease (2), [Hypercholesterolemia] [Hypertension] [+ Family HX] Troponin: < or = 1 x Normal Limit (0). The patient was not given aspirin in the Emergency Department. The patient's Wells Deep Vein Thrombosis Score was calculated as follows: Total Score: 0. This patient was found to be at low risk for a deep vein thrombosis by using the Well's assessment criteria Previous DVT/PE (1.5 Pts) Total Score:. The patient's pulmonary embolism risk score was calculated as follows: the patient has a history of a previous deep vein thrombosis or pulmonary embolism (1.5 Pts). DELLA Risk Score: 1 - patient's age is greater or equal to 65 years, 1 - Three or more CAD risk factors, 1- Known CAD, 1 - ASA use in past 7 days, 1 - Elevated Cardiac Markers, TOTAL SCORE = 5. Immunization status: Pneumococcal vaccine: Influenza vaccine: Data reviewed: vital signs, nurses notes, lab test result(s), EKG, radiologic studies, plain films. 08/11 03:00 Order name: Basic Metabolic Panel 5 08/11 03:00 Order name: CBC with Diff; Complete Time: 05:39 rr5 08/11 03:00 Order name: LFT's rr 08/11 03:00 Order name: Magnesium; Complete Time: 05:39 rr5 08/11 03:00 Order name: NT PRO-BNP; Complete Time: 05:39 rr5 08/11 03:00 Order name: PT-INR; Complete Time: 05:39 rr5 08/11 03:00 Order name: Troponin (emerg Dept Use Only); Complete Time: 05:39 rr5 08/11 03:03 Order name: Basic Metabolic Panel; Complete Time: 05:39 EDMS 08/11 03:03 Order name: Liver (Hepatic) Function; Complete Time: 05:39 EDMS 08/11 04:22 Order name: Manual Differential; Complete Time: 05:39 EDMS 08/11 05:43 Order name: Blood Culture Adult (2) pritesh 08/11 05:55 Order name: SARS-COV-2 RT PCR EDMN 08/11 03:00 Order name: XRAY Chest (1 view) [facility] 08/11 03:00 Order name: EKG; Complete Time: 03:03 rr5 08/11 03:00 Order name: Cardiac monitoring; Complete Time: 03:54 rr5 08/11 03:00 Order name: EKG - Nurse/Tech; Complete Time: 03:54 5 08/11 03:00 Order name: IV Saline Lock; Complete Time: 03:54 rr5 08/11 03:00 Order name: Labs collected and sent; Complete Time: 03:54 5 08/11 03:00 Order name: O2 Per Protocol; Complete Time: 03:54 5 08/11 03:00 Order name: O2 Sat Monitoring; Complete Time: 03:54 rr5 EC:49 Rate is 87 beats/min. Rhythm is regular. QRS [place] is Normal. MD interval is normal. QRS pritesh interval is normal. QT interval is prolonged at 490 msec. No Q waves. T waves are Normal. No ST changes noted. Clinical impression: NSR w/ Non-specific ST/T Changes and No evidence of ischemia. Interpreted by me. Reviewed by me. Administered Medications: Discontinued: NS 0.9% 1000 ml IV at 125 ml/hr continuous 04:18 Drug: NS 0.9% 1000 ml Route: IV; Rate: 125 ml/hr; Site: right forearm; rr5 06:17 Follow up: Response: No adverse reaction; IV Status: Order to discontinue infusion; IV rr5 Intake: 125ml 06:17 Follow up: Response: No adverse reaction rr5 06:00 Drug: Ativan 0.5 mg Route: IVP; Site: left forearm; sf 06:10 Drug: Zofran (Ondansetron) 4 mg Route: IVP; Site: left hand; rr5 06:12 Drug: morphine 2 mg {Note: rass 0.} Route: IVP; Site: left hand; rr5 06:14 Drug: Lasix 40 mg Route: IVP; Site: left hand; rr5 06:16 Dru.375 grams of (Zosyn 3.375 grams, NS 0.9% 100 ml) Route: IVPB; Infused Over: 60 rr5 mins; Site: left hand; 06:40 Follow up: Response: Other; IV Status: Order to discontinue infusion; rr5 Disposition: Patient pronounced on 08/11/20 06:40 by Steven Arceo. Impression: Unspecified combined systolic (congestive) and diastolic (congestive) heart failure, Acute kidney failure - on chronic, Pneumonia due to other specified bacteria, Sepsis, unspecified organism - leukocytosis, bandemia, Respiratory arrest. - Released to Home. Signatures: Dispatcher [employer] Juanita Brooks RN JOELLE Steven Arceo MD MD cha Munoz, Edgar, RN RN em Roque, Raymond, RN RN rr5 Tee Denis RN RN sf Corrections: (The following items were deleted from the chart) 04:37 03:43 CORONAVIRUS+LAB.LOCO ordered. EDMN EDMS 06:26 05:55 Hospitalization Ordered by Harshil Garcia DO for Inpatient Admission. Preliminary pritesh diagnosis is Chest pain, unspecified; Unspecified combined systolic (congestive) and diastolic (congestive) heart failure; Elevated white blood cell count; Bandemia; Cardiomegaly; Pneumonia due to other specified bacteria - bilateral; Acute kidney failure - on chronic. Bed requested for Telemetry/MedSurg (Inpatient). Status is Inpatient Admission. Condition is Serious. Problem is new. Symptoms have improved. [facility] 11:21 06:52 08/11/2020 06:52 Patient pronounced on 08/11/2020 at 06:40 by Steven Arceo. sv Impression: Unspecified combined systolic (congestive) and diastolic (congestive) heart failure; Acute kidney failure - on chronic; Pneumonia due to other specified bacteria; Sepsis, unspecified organism - leukocytosis, bandemia; Respiratory arrest. Released to Home. pritesh
--- NOTE | 2020-08-11 05:56 | ER ---
Nurse's Notes [facility] Name: Meena Gandhi Age: 75 yrs Sex: Female : 1945 Arrival Date: 08/11/2020 Time: 02:49 Bed 30 Private MD: Diagnosis: Unspecified combined systolic (congestive) and diastolic (congestive) heart failure;Acute kidney failure-on chronic;Pneumonia due to other specified bacteria;Sepsis, unspecified organism-leukocytosis, bandemia;Respiratory arrest Presentation: 08/11 02:50 Chief complaint: EMS states: called out for shortness of breath, hx of anxiety, was em given 1 mg ativan PO STRAP STITCHER, 99% 2 L via NC, reports right shoulder pain, pt is on hospice for metastatic CA. Coronavirus screen: Client denies travel out of the [place] in the last 14 days. Ebola Screen: Patient negative for fever greater than or equal to 101.5 degrees Fahrenheit, and additional compatible Ebola Virus Disease symptoms Patient denies exposure to infectious person. Patient denies travel to an Ebola-affected area in the 21 days before illness onset. No symptoms or risks identified at this time. Initial Sepsis Screen: Does the patient meet any 2 criteria? No. Patient's initial sepsis screen is negative. Does the patient have a suspected source of infection? No. Patient's initial sepsis screen is negative. Risk Assessment: Do you want to hurt yourself or someone else? Patient reports no desire to harm self or others. Onset of symptoms was August 11, 2020. 02:50 Method Of Arrival: EMS: [facility] em 02:50 Acuity: MIGUELITO 3 em Triage Assessment: 03:00 Respiratory: the patient has mild shortness of breath. rr5 03:00 General: Appears in no apparent distress. comfortable, Behavior is calm, cooperative. rr5 Historical: - Allergies: 02:54 Iodine; em 02:54 Sulfa (Sulfonamide Antibiotics); em - Home Meds: 02:54 aspirin 81 mg Oral TbEC 1 tab once daily [Active]; enoxaparin 40 mg/0.4 mL subcutaneous em syrg every 12 hours [Active]; metoprolol tartrate 50 mg Oral tab 1 tab 2 times per day [Active]; Plavix 75 mg Oral tab 1 tab once daily [Active]; ranolazine Oral 1 tab 2 times per day [Active]; - PMHx: 02:54 Diabetes - NIDDM; DVT; Hypertension; Myocardial infarction; em - PSHx: 02:54 CABG; em - Immunization history:: Adult Immunizations up to date. - Social history:: Smoking status: Patient denies any tobacco usage or history of. Screenin:59 Abuse screen: Denies threats or abuse. Denies injuries from another. Nutritional rr5 screening: No deficits noted. Tuberculosis screening: No symptoms or risk factors identified. Fall Risk None identified. Total Hubbard Fall Scale indicates No Risk (0-24 pts). Assessment: 02:56 General: Appears in no apparent distress. comfortable, Behavior is calm, cooperative, rr5 appropriate for age. Pain: Complains of pain in chest Quality of pain is described as aching, Pain began gradually, Is intermittent. Neuro: Level of Consciousness is awake, alert, obeys commands, Oriented to person, place, time, situation. Cardiovascular: Capillary refill < 3 seconds Patient's skin is warm and dry. Rhythm is regular. Respiratory: Reports shortness of breath Airway is patent Respiratory effort is even, unlabored, Respiratory pattern is regular, symmetrical. GI: No signs and/or symptoms were reported involving the gastrointestinal system. : No signs and/or symptoms were reported regarding the genitourinary system. EENT: No signs and/or symptoms were reported regarding the EENT system. Derm: Skin is intact, is healthy with good turgor, Skin temperature is warm. Musculoskeletal: Capillary refill < 3 seconds. 04:00 Reassessment: Patient appears in no apparent distress at this time. Patient is alert, rr5 oriented x 3, equal unlabored respirations, skin warm/dry/pink. awaiting for results. 05:00 Reassessment: Patient appears in no apparent distress at this time. Patient is alert, rr5 oriented x 3, equal unlabored respirations, skin warm/dry/pink. awaiting for review. 05:45 Reassessment: complaints of chest pain, SOB, ED provider with order made and carried rr5 out. 06:00 Reassessment: Patient appears in no apparent distress at this time. Patient is alert, rr5 oriented x 3, equal unlabored respirations, skin warm/dry/pink. reassess by ED provider advised for admission patient is undecided if to revoke to hospice care. 06:15 Reassessment: Pt O2 noted to be at 70%, respirations apneic, pt placed on non ea rebreather, provider notified, order obtained to give comfort measures. 06:44 Reassessment: Dr. Arceo called time of 0640. ea 06:52 Reassessment: ECG strip printed HR 0 Bpm RR 0 cpm. rr5 07:06 Reassessment: [id number]. ea 07:33 Reassessment: [employer] at the bedside. sv 11:21 Reassessment: Pt taken to [facility]. sv Vital Signs: 02:50 BP 150 / 80; Pulse 87; Resp 18; Temp 98.1; Pulse Ox 96% on 3 lpm NC; Weight 45.36 kg; em Height 5 ft. 0 in. (152.40 cm); Pain 4/10; 04:00 BP 155 / 84; Pulse 87; Resp 19; Pulse Ox 95% on 2 lpm NC; rr5 05:00 BP 135 / 74; Pulse 80; Resp 24; Pulse Ox 95% on 3 lpm NC; rr5 06:00 BP 132 / 85; Pulse 89; Resp 23; Pulse Ox 95% on 3 lpm NC; rr5 06:15 BP 102 / 32; Pulse 50; Resp 10; Pulse Ox 70% ; ea 06:40 Pulse 0; Resp 0; Pulse Ox 0% ; ea 02:50 Body Mass Index 19.53 (45.36 kg, 152.40 cm) em ED Course: 02:49 Patient arrived in ED. cl3 02:53 Triage completed. em 02:54 Arm band placed on. em 02:56 Billy Yee, RN is Primary Nurse. rr5 02:59 Patient has correct armband on for positive identification. Placed in gown. Bed in low rr5 position. Call light in reach. Side rails up X2. hall monitor on. Pulse ox on. NIBP on. 03:15 Steven Arceo MD is Attending Physician. pritesh 03:30 Inserted saline lock: 24 gauge in right forearm, using aseptic technique. ,using rr5 aseptic technique. inserted by Pending sale to [facility] tech Blood collected. 03:40 EKG done, by ED staff, reviewed by Steven Arceo MD. rr5 03:59 COVID swab sent to lab. rr5 04:53 XRAY Chest (1 view) In Process Unspecified. EDMS 05:53 Harshil Garcia DO is Hospitalizing Provider. pritesh 06:24 No provider procedures requiring assistance completed. rr5 06:49 Steven Arceo MD is Pronouncing Provider. pritesh Administered Medications: Discontinued: NS 0.9% 1000 ml IV at 125 ml/hr continuous 04:18 Drug: NS 0.9% 1000 ml Route: IV; Rate: 125 ml/hr; Site: right forearm; rr5 06:17 Follow up: Response: No adverse reaction; IV Status: Order to discontinue infusion; IV rr5 Intake: 125ml 06:17 Follow up: Response: No adverse reaction rr5 06:00 Drug: Ativan 0.5 mg Route: IVP; Site: left forearm; sf 06:10 Drug: Zofran (Ondansetron) 4 mg Route: IVP; Site: left hand; rr5 06:12 Drug: morphine 2 mg {Note: rass 0.} Route: IVP; Site: left hand; rr5 06:14 Drug: Lasix 40 mg Route: IVP; Site: left hand; rr5 06:16 Dru.375 grams of (Zosyn 3.375 grams, NS 0.9% 100 ml) Route: IVPB; Infused Over: 60 rr5 mins; Site: left hand; 06:40 Follow up: Response: Other; IV Status: Order to discontinue infusion; rr5 Intake: 06:17 IV: 125ml; Total: 125ml. rr5 Outcome: 05:56 Decision to Hospitalize by Provider. pritesh 07:00 Patient : Time of 06:40 Pronounced by Steven Arceo MD rr5 07:00 Condition: 07:00 Instructed on 11:21 Patient left the ED. sv Signatures: Dispatcher [employer] EDND Juanita Zhang RN RN sv Anderson, Corey, MD MD cha Munoz, Edgar, RN Anna Yee RN RN ea Roque, Raymond, RN RN rr5 Yahaira Jeffers cl3 Tee Denis RN RN sf Corrections: (The following items were deleted from the chart) 06:23 05:00 Reassessment: Patient appears in no apparent distress at this time. Patient is rr5 alert, oriented x 3, equal unlabored respirations, skin warm/dry/pink. rr5 06:41 06:00 Reassessment: Pt sats decreased to 70%, placed on non rebreather, pt respirations sf apneic, provider notified, order to give comfort measures. sf 06:42 06:15 Reassessment: Pt sats decreased to 70%, placed on non rebreather, pt respirations sf apneic, provider notified, order to give comfort measures. sf
[2020-08-11] MEDS ORDERED: MORPHINE 2 MG/ML SYR ONE (06:07)
[2020-08-11] MEDS ORDERED: PIPER/TAZO/NS 3.375gm 3.375 GM/100 ML BAG ONE (06:07)
[2020-08-11] MEDS ORDERED: FUROSEMIDE 40 MG/4 ML VIAL ONE (06:07)
[2020-08-11] MEDS ORDERED: ONDANSETRON 4 MG/2 ML VIAL ONE (06:07)
[2020-08-11] MEDS ORDERED: LORazepam 2 MG/ML VIAL ONE (06:32)
[2020-08-11 11:26] VITALS: TEMP 98.1
[2020-08-11 11:32] VITALS: BP 102/32
[2020-08-11 11:33] VITALS: O2SAT 0
--- NOTE | 2020-08-11 12:16 | EKG ---
Test Date: 2020-08-11 Test Time: 03:48:50 Accounting Machine Operator: RR MEASUREMENT RESULTS: Intervals: Rate: 87 IA: 164 QRSD: 80 QT: 408 QTc: 490 [place]: P: 40 IA: 164 QRS: 28 T: 110 INTERPRETIVE STATEMENTS: Normal sinus rhythm Nonspecific ST and T wave abnormality Prolonged QT Abnormal ECG Compared to ECG 07/25/2020 10:27:33 Prolonged QT interval now present Left-axis deviation no longer present Left ventricular hypertrophy no longer present ST (T wave) deviation still present Electronically Signed On 08-11-20 12:15:09 ABSTRACTOR by Jordan Tovar
--- NOTE | 2020-08-11 12:58 | RAD REPORT ---
EXAM DESCRIPTION: Chest Single View CLINICAL HISTORY: CHEST PAIN COMPARISON: None. FINDINGS: Single frontal view of the chest.Tubes and lines: Leads overlie the chest.Cardiomediastina l silhouette: Cardiomegaly. Prior median sternotomy.Lungs: Pulmonary vascular congestion bilateral in terstitial opacities. No pneumothorax or large effusion.Bones: Degenerative change of the spine and s houlders.Upper abdomen: No acute findings. IMPRESSION: 1. Cardiomegaly with likely pulmonary edema pattern. Alternatively, bilateral pneumonic process could also produce this appearance. Electronically signed by: Marko Ulloa 08/11/2020 6:10 AM SKULL GRINDER Due to temporary technical issues with the PACS/Fluency reporting system, reports are being signed by the in house radiologist without review as a courtesy to ensure prompt reporting. The interpreting r adiologist is fully responsible for the content of the report.
== END 2020-08-11 11:21 | disposition expired ==
LOC: ER 02:48
DX: R09.2 Respiratory arrest (principal); A41.9 Sepsis, unspecified organism; J15.8 Pneumonia due to other specified bacteria; N17.9 Acute kidney failure, unspecified; E11.22 Type 2 diabetes mellitus with diabetic chronic kidney disease; I13.0 Hypertensive heart and chronic kidney disease with heart failure and stage 1 through stage 4 chronic kidney disease, or unspecified chronic kidney disease; N18.9 Chronic kidney disease, unspecified; I50.9 Heart failure, unspecified; D72.825 Bandemia; Z20.822 Contact with and (suspected) exposure to COVID-19; Z95.1 Presence of aortocoronary bypass graft; Z79.01 Long term (current) use of anticoagulants; Z79.82 Long term (current) use of aspirin; Z88.2 Allergy status to sulfonamides; Z91.048 Other nonmedicinal substance allergy status
CPT/HCPCS: 93005; 87040; 85025; 80048; 36415; 83735; 85610; 80076; 84484; 83880; 71045; 99285; U0003; J1940; J2543; J2270; J7030; J2405